=== PATIENT | female | born 1950 | race Caucasian/White ===

== ENCOUNTER 2018-09-19 11:41 | Outpatient (CLI) | payer MEDICARE, MEDICAID, SELFPAY ==
[2018-09-19 13:54] LABS: Abs Immature Grans 0.02 k/cumm (0.0-0.09); Absolute Basophil Count 0.02 k/cumm (0.0-0.2); Absolute Eosinophil Count 0.28 k/cumm (0.0-0.7); Absolute Lymphocyte Count 1.61 k/cumm (1.2-3.4); Absolute Monocyte Count 0.68 k/cumm (0.11-0.7); Absolute Neutrophil Count 5.67 k/cumm (1.2-6.7); Basophils % 0.2; Eosinophils % 3.4; HGB 9.6 g/dL (12.0-15.5); Immature Grans % 0.2; Lymphocytes % 19.4; Mean Corpuscular Hemoglobin 25.3 pg (27.0-33.0); Mean Corpuscular Volume 84.4 fL (80-95); Mean Platelet Volume 7.9 fL (8.0-11.0); Monocytes % 8.2; Neutrophils % 68.6; Platelet Count 694 x1000/uL (130-400); RBC 3.79 m/cumm (4.00-5.20); RBC Distribution Width 19.5 % (11.7-14.6); White Blood Cell Count 8.28 k/cumm (4.4-10.8)
[2018-09-19 14:05] LABS: Anisocytosis 1+; Diff Comment RBC Morph Reviewed
[2018-09-19 14:06] LABS: Hypochromasia 1+; Polychromasia Present
[2018-09-19 14:19] LABS: Iron 20 ug/dL (50-175); Total Iron Binding Capacity 472 ug/dL (250-450); Transferrin Sat 4 % (15-50)
[2018-09-19 14:30] LABS: ALT 22 U/L (12-78); AST 17 U/L (15-37); Albumin 3.7 g/dL (3.4-5.0); Alkaline Phosphatase 100 U/L (46-116); Anion Gap 8.6 mmol/L (3-11); BUN 16 mg/dL (7-18); Bilirubin, Total 0.1 mg/dL (0.2-1.0); CO2 28.4 mmol/L (21.0-32.0); CREATININE 1.15 mg/dL (0.55-1.02); Calcium 9.8 mg/dL (8.5-10.1); Chloride 100 mmol/L (98-107); Estimated GFR 46.92 (mL/min/1.73m2); Ferritin 11 ng/mL (8-388); Folate > 20.0 ng/mL (8.6-20.0); Glucose 108 mg/dL (70-100); Potassium 3.9 mmol/L (3.5-5.1); Sodium 137 mmol/L (136-145); Total Protein 7.8 g/dL (6.4-8.2); Vitamin B12 546 pg/mL (193-986)
[2018-09-22 12:24] LABS: Methylmalonic Acid 0.21 nmol/mL (<=0.40)
== END 2018-09-19 12:01 ==
PROVIDERS: PCP Neuromusculoskeletal Medicine & OMM; Visit Provider Internal Medicine
DX: D50.9 Iron deficiency anemia, unspecified (principal)
CPT/HCPCS: 36415; 80053; 80186; 82607; 82728; 82746; 83540; 83550; 85025

== ENCOUNTER 2018-09-19 14:01 | Outpatient (CLI) | payer MEDICARE, MEDICAID, SELFPAY ==
--- NOTE | 2018-09-19 14:25 | DI.RAD_ITS ---
SYMPTOM/DIAGNOSIS: LT HIP PAIN M25.552 LEFT HIP: Two views. Comparison 08/03/17 The left hip is well maintained. No bone or joint abnormality is identified. The soft tissues are unremarkable. IMPRESSION: Negative left hip examination.
--- NOTE | 2018-09-19 14:26 | DI.RAD_ITS ---
SYMPTOM/DIAGNOSIS: PAIN LEFT HIP, M25.552 SACRUM AND COCCYX: Three views. Mild degenerative changes are seen at the sacroiliac joints. The sacrum is intact and normally mineralized. No acute fracture or dislocation, lytic or sclerotic lesion seen. IMPRESSION: Mild degenerative changes of the sacroiliac joints bilaterally.
== END 2018-09-19 14:21 ==
PROVIDERS: PCP Neuromusculoskeletal Medicine & OMM; Visit Provider Neuromusculoskeletal Medicine & OMM
DX: M25.552 Pain in left hip (principal); M53.3 Sacrococcygeal disorders, not elsewhere classified
CPT/HCPCS: 36415; 80053; 80186; 93005; 99285; 71045; 72220; 73502; 82607; 82728; 82746; 83540; 83550; 83735; 84484; 85025; 85610; 85730; 93010; 99284

== ENCOUNTER 2019-06-15 13:55 | Outpatient (CLI) | payer MEDICARE, SELFPAY ==
[2019-06-15 14:27] LABS: Abs Immature Grans 0.02 k/cumm (0.0-0.09); Absolute Basophil Count 0.02 k/cumm (0.0-0.2); Absolute Eosinophil Count 0.37 k/cumm (0.0-0.7); Absolute Lymphocyte Count 1.44 k/cumm (1.2-3.4); Absolute Neutrophil Count 5.43 k/cumm (1.2-6.7); Basophils % 0.3; Eosinophils % 4.6; HCT 32.9 % (36.0-46.0); Immature Grans % 0.3; Mean Corp. HGB Concentration 30.4 g/dL (32.0-36.0); Mean Corpuscular Hemoglobin 24.6 pg (27.0-33.0); Mean Platelet Volume 7.9 fL (8.0-11.0); Monocytes % 8.8; Platelet Count 640 x1000/uL (130-400); RBC 4.06 m/cumm (4.00-5.20); RBC Distribution Width 16.8 % (11.7-14.6); White Blood Cell Count 7.98 k/cumm (4.4-10.8)
[2019-06-15 14:51] LABS: ALT 25 U/L (12-78); AST 16 U/L (15-37); Albumin 3.3 g/dL (3.4-5.0); Alkaline Phosphatase 86 U/L (46-116); Anion Gap 10.4 mmol/L (3-11); BUN 18 mg/dL (7-18); Bilirubin, Total 0.1 mg/dL (0.2-1.0); CO2 25.6 mmol/L (21.0-32.0); CREATININE 1.01 mg/dL (0.55-1.02); Chloride 102 mmol/L (98-107); Estimated GFR 54.51 (mL/min/1.73m2); Ferritin 5 ng/mL (8-388); Glucose 109 mg/dL (70-100); Sodium 138 mmol/L (136-145); Total Protein 7.5 g/dL (6.4-8.2)
== END 2019-06-15 14:15 ==
PROVIDERS: PCP Neuromusculoskeletal Medicine & OMM; Visit Provider Internal Medicine
DX: D50.9 Iron deficiency anemia, unspecified (principal)
CPT/HCPCS: 36415; 80053; 82728; 85025

== ENCOUNTER 2019-10-16 13:42 | Outpatient (CLI) | payer MEDICARE, SELFPAY ==
[2019-10-16 15:33] LABS: Abs Immature Grans 0.02 k/cumm (0.0-0.09); Absolute Basophil Count 0.03 k/cumm (0.0-0.2); Absolute Eosinophil Count 0.26 k/cumm (0.0-0.7); Absolute Lymphocyte Count 1.22 k/cumm (1.2-3.4); Absolute Monocyte Count 0.74 k/cumm (0.11-0.7); Absolute Neutrophil Count 5.45 k/cumm (1.2-6.7); Basophils % 0.4; Eosinophils % 3.4; HCT 37.6 % (36.0-46.0); HGB 11.9 g/dL (12.0-15.5); Immature Grans % 0.3; Lymphocytes % 15.8; Mean Corp. HGB Concentration 31.6 g/dL (32.0-36.0); Mean Corpuscular Hemoglobin 28.2 pg (27.0-33.0); Mean Corpuscular Volume 89.1 fL (80-95); Mean Platelet Volume 7.9 fL (8.0-11.0); Monocytes % 9.6; Neutrophils % 70.5; Platelet Count 602 x1000/uL (130-400); RBC 4.22 m/cumm (4.00-5.20); RBC Distribution Width 15.8 % (11.7-14.6); White Blood Cell Count 7.72 k/cumm (4.4-10.8)
[2019-10-16 16:10] LABS: ALT 21 U/L (14-59); AST 16 U/L (15-37); Albumin 3.7 g/dL (3.4-5.0); Alkaline Phosphatase 75 U/L (46-116); Anion Gap 10.6 mmol/L (3-11); BUN 18 mg/dL (7-18); Bilirubin, Total 0.2 mg/dL (0.2-1.0); CO2 27.4 mmol/L (21.0-32.0); CREATININE 0.97 mg/dL (0.55-1.02); Calcium 9.6 mg/dL (8.5-10.1); Chloride 103 mmol/L (98-107); Estimated GFR 56.94 (mL/min/1.73m2); Glucose 80 mg/dL (74-106); Potassium 4.1 mmol/L (3.5-5.1); Sodium 141 mmol/L (136-145); Total Protein 7.3 g/dL (6.4-8.2)
[2019-10-17 15:11] LABS: Ferritin 22 ng/mL (8-252)
== END 2019-10-16 14:02 ==
PROVIDERS: Internal Medicine; PCP Neuromusculoskeletal Medicine & OMM; Visit Provider Registered Nurse Oncology
DX: D50.9 Iron deficiency anemia, unspecified (principal); K29.50 Unspecified chronic gastritis without bleeding
CPT/HCPCS: 36415; 80053; 82728; 85025

== ENCOUNTER 2020-04-15 02:30 | Outpatient (CLI) | payer MEDICARE, SELFPAY ==
[2020-04-15 14:02] LABS: Abs Immature Grans 0.02 k/cumm (0.0-0.09); Absolute Basophil Count 0.01 k/cumm (0.0-0.2); Absolute Eosinophil Count 0.31 k/cumm (0.0-0.7); Absolute Lymphocyte Count 1.32 k/cumm (1.2-3.4); Absolute Monocyte Count 0.66 k/cumm (0.11-0.7); Absolute Neutrophil Count 5.74 k/cumm (1.2-6.7); Basophils % 0.1; Eosinophils % 3.8; HCT 28.5 % (36.0-46.0); HGB 8.6 g/dL (12.0-15.5); Immature Grans % 0.2 %; Lymphocytes % 16.4; Mean Corp. HGB Concentration 30.2 g/dL (32.0-36.0); Mean Corpuscular Hemoglobin 24.2 pg (27.0-33.0); Mean Corpuscular Volume 80.3 fL (80-95); Mean Platelet Volume 8.2 fL (8.0-11.0); Monocytes % 8.2; Neutrophils % 71.3; RBC 3.55 m/cumm (4.00-5.20); RBC Distribution Width 15.3 % (11.7-14.6); White Blood Cell Count 8.06 k/cumm (4.4-10.8)
[2020-04-15 14:32] LABS: Platelet Count 938 x1000/uL (130-400)
[2020-04-15 14:33] LABS: Anisocytosis 1+; Diff Comment RBC Morph Reviewed; Hypochromasia 1+; Polychromasia Present
[2020-04-15 14:57] LABS: ALT 20 U/L (14-59); AST 16 U/L (15-37); Albumin 3.4 g/dL (3.4-5.0); Alkaline Phosphatase 87 U/L (46-116); Anion Gap 10.3 mmol/L (3-11); BUN 15 mg/dL (7-18); Bilirubin, Total 0.2 mg/dL (0.2-1.0); CO2 26.7 mmol/L (21.0-32.0); CREATININE 1.06 mg/dL (0.55-1.02); Calcium 9.4 mg/dL (8.5-10.1); Chloride 101 mmol/L (98-107); Ferritin 4 ng/mL (8-252); Glucose 105 mg/dL (74-106); Potassium 4.3 mmol/L (3.5-5.1); Sodium 138 mmol/L (136-145); Total Protein 7.1 g/dL (6.4-8.2)
== END 2020-04-15 02:50 ==
PROVIDERS: PCP Neuromusculoskeletal Medicine & OMM; Visit Provider Internal Medicine
DX: D50.9 Iron deficiency anemia, unspecified (principal)
CPT/HCPCS: 80053; 82728; 85025

== ENCOUNTER 2020-06-17 01:57 | Outpatient (CLI) | payer MEDICARE, SELFPAY ==
[2020-06-17 13:37] LABS: Abs Immature Grans 0.03 10^3/uL (0.0-0.06); Absolute Basophil Count 0.04 10^3/uL (0.0-0.2); Absolute Eosinophil Count 0.27 10^3/uL (0.0-0.7); Absolute Lymphocyte Count 1.23 10^3/uL (1.2-3.4); Absolute Monocyte Count 0.52 10^3/uL (0.1-0.8); Absolute Neutrophil Count 5.74 10^3/uL (1.2-6.7); Basophils % 0.5; Eosinophils % 3.4; HCT 35.8 % (36.0-46.0); HGB 11.1 g/dL (11.2-15.7); Immature Grans % 0.4; Lymphocytes % 15.7; MCH 26.1 pg (27.0-33.0); MCV 84.2 fL (80-95); MPV 8.2 fL (8.0-11.0); Monocytes % 6.6; Neutrophils % 73.4; Platelet Count 566 10^3/uL (130-400); RBC 4.25 10^6/uL (3.93-5.22); RDW 23.8 % (11.7-14.6); RDW-SD 70.3 fL; WBC 7.83 10^3/uL (4.4-10.8)
[2020-06-17 14:04] LABS: ALT 18 U/L (14-59); AST 12 U/L (15-37); Albumin 3.4 g/dL (3.4-5.0); Alkaline Phosphatase 75 U/L (46-116); Anion Gap 7.6 mmol/L (3-11); BUN 19 mg/dL (7-18); Bilirubin, Total 0.2 mg/dL (0.2-1.0); CO2 25.4 mmol/L (21.0-32.0); Calcium 9.4 mg/dL (8.5-10.1); Chloride 104 mmol/L (98-107); Estimated GFR 54.97 (mL/min/1.73m2); Ferritin 102 ng/mL (8-252); Glucose 116 mg/dL (74-106); Potassium 3.7 mmol/L (3.5-5.1); Sodium 137 mmol/L (136-145); Total Protein 7.3 g/dL (6.4-8.2)
[2020-06-17 14:08] LABS: Anisocytosis 3+; Diff Comment Diff Reviewed
[2020-06-17 14:09] LABS: Poikilocytes 1+
== END 2020-06-17 02:17 ==
PROVIDERS: PCP Neuromusculoskeletal Medicine & OMM; Visit Provider Internal Medicine
DX: D50.9 Iron deficiency anemia, unspecified (principal)
CPT/HCPCS: 36415; 80053; 82728; 85025

== ENCOUNTER 2020-07-15 05:28 | Inpatient (IN) | payer MEDICARE, SELFPAY ==
[2020-07-15] VITALS (13 sets, daily range): BP systolic 110–141; BP diastolic 61–85; PULSE 81–103; RESP 15–18; TEMP 35.8–37; O2SAT 89–97
--- NOTE | 2020-07-15 05:30 | DI.CT_ITS ---
EXAM: CT ABDOMEN PELVIS CTA CLINICAL HISTORY: lower abdominal pain, ?mesenteric ischemia. TECHNIQUE: Imaging Protocol: Axial CT angiography was performed with multi-slice acquisition and m ulti-planar and/or 3D reconstructions. CONTRAST MATERIAL: Intravenous: Omnipaque 350 Contrast volume:110 mL Oral: No COMPARISON: No exams were available for comparison FINDINGS: Vascular Structures: Celiac Drift/SMA: Mild atherosclerosis at the origin of the celiac axis. No occlusion or significant stenosis. No occlusion or significant stenosis at the SMA. Renal Arteries: No occlusion or significant stenosis. There is a single renal artery perfusing each kidney. Aorta: Mild atherosclerosis. No occlusion, dissection or significant stenosis. Pelvis: Iliac Arteries: No occlusion or significant stenosis. Common Femoral Arteries: No occlusion or significant stenosis. Soft Tissues: Lung bases:Dependent atelectasis. Liver: Fatty infiltration. No measurable mass. 22 cm in length. Gallbladder and biliary tract: Status post cholecystectomy. No biliary ductal dilatation. Pancreas: Normal density, no abnormal calcifications or inflammatory process. Spleen: Normal. Kidneys: Normal size, contour and axis. 2 mm nonobstructing stone in the midpole of the left kidney. No masses seen. Adrenal glands: No masses seen. Bladder: Symmetric distention, no gross wall thickening. Bowel: Diffuse moderate dilatation of the small bowel to the level of the cecum. Question of narrowi ng at the level of the terminal ileum. Colonic diverticulosis but no evidence of acute diverticuliti s. There is a normal appendix. Peritoneal cavity: No ascites, collection or mesenteric inflammatory response. Vasculature: The superior mesenteric, splenic and portal veins are patent. Bones: Degenerative changes. Lymph nodes: Within normal limits. IMPRESSION: 1. Mild atherosclerosis but no evidence of arterial occlusion or significant stenosis. No aneurysm o r dissection. 2. Findings suspicious for distal partial small bowel obstruction with a question of narrowing at the level of the terminal ileum. Barium study may be considered for further evaluation. RADIATION DOSE DELIVERED: 2,185.99mGy.cm Total DLP DATA REPOSITORY: All CT scans at this facility are submitted to the National Radiology Data Registry (NRDR) Dose Index Registry (DIR) with the [employer] (A[employer]). RADIATION OPTIMIZATION: All CT scans at this facility use at least one of these dose optimization te chniques: automated exposure control; mA and/or kV adjustment per patient size (includes targeted exa ms where dose is matched to clinical indication); or iterative reconstruction.
--- NOTE | 2020-07-15 05:37 | W.ED.GENAD ---
Discharge Plan Disposition Patient Disposition: [facility] INPATIENT Condition: Stable Discharge Details Chief Complaint: Abd Prob Clinical Impression: SBO (small bowel obstruction) Primary Care Provider: Shayan Headley ED Provider: Martell Mohamud Home Meds and New Rx's Prescriptions: No Action levothyroxine [Synthroid] 112 MCG tablet 112 mcg PO DAILY RF: 0 fluoxetine 40 MG capsule 80 mg PO DAILY RF: 0 prochlorperazine maleate 5 MG tablet 5 mg PO Q8H PRNRF: 0 pseudoephedrine HCl [Sudogest] 30 MG tablet 30 mg PO TID RF: 0 zolpidem 5 MG tablet 5 mg PO .QHS RF: 0 risperidone 0.5 MG tablet 0.5 mg PO TID RF: 0 ginkgo biloba 60 MG capsule 60 mg PO DAILY RF: 0 cyclobenzaprine 5 MG tablet 5 mg PO TID PRNRF: 0 calcium carbonate-vitamin D3 1 EACH tablet 1 tab PO DAILY RF: 0 hydrocodone-acetaminophen 5-325 mg tablet 1 tab PO HS PRN (Reason: Pain) RF: 0 methylphenidate HCl 20 mg tablet 20 mg PO TID PRNRF: 0 Medical Decision Making 69 yo female with hx of hypothyroidism and prior cholecystecomy otherwise denies other abdominal surgeries, doesn't drink and hasn't smoker in over 40 years, comes in with 3 months or so of abdominal pain but worsened over the past 3 days. Denies fevers, has had dry heaves, no chest pain or pressure and no dyspnea. Denies any bloody bowel movements. On exam she is tender throughout on the abdominal exam though is most tender in the lower quadrants and abdomen does have some distention. Will obtain ct to eval for mesenteric ischemia, sbo, appendicitis among other pathology and monitor. She states she had IV contrast for CT 30 years ago and felt anxious and this was her allergic reaction to IV dye, no dyspnea or rashes she can recall, will pretreat with benadryl and solumedro labs unremarkable there was some delay in sending images to vrad and on my read does appear to be sbo, consulted Dr. Severino who will review images, pt remains stable vrad confirms likely developing sbo with likely lesion in terminal ileum, awaiting return call from Dr. Mere severino agreed with admission will hold on NG tube at present, pt updated and agrees with plan Differential Diagnosis Differential Diagnosis: appendicitis, sbo, mesenteric iscehmia Imaging Data Radiologic Study: Attestation: I personally reviewed and interpreted this imaging study as follows: Imaging: CT Scan Radiologist's impression: IMPRESSION: Suspected developing distal partial small bowel obstruction with possible lesion at the terminal ileum/ileocecal junction with associated mild narrowing No arterial occlusion or hemodynamically significant stenosis. No aortic aneurysm or dissection Lab Data Lab results reviewed: Yes I reviewed the patient's lab results. HPI General Mode of arrival: EMS. Date/Time Provider Initiated Documentation: 07/15/20 05:33. Limitations to Documentation: no limitations. Information obtained by: patient. History of Present Illness 69 year old F presents to the emergency department with the chief complaint of abdominal pain, described as moderate, Patient started experiencing this month(s) (3) No relieving factors improve symptom(s), No exacerbating factors reported . Patient did receive the following treatments prior to arrival, none Related Data Home Medications Medication Instructions Recorded Confirmed levothyroxine [Synthroid] 112 mcg PO DAILY tab-cap 02/15/17 07/15/20 calcium carbonate-vitamin D3 1 tab PO DAILY 05/02/17 07/15/20 cyclobenzaprine 5 mg PO TID PRN 05/02/17 07/15/20 fluoxetine 80 mg PO DAILY 05/02/17 07/15/20 ginkgo biloba 60 mg PO DAILY 05/02/17 07/15/20 prochlorperazine maleate 5 mg PO Q8H PRN 05/02/17 07/15/20 pseudoephedrine HCl [Sudogest] 30 mg PO TID 05/02/17 07/15/20 risperidone 0.5 mg PO TID 05/02/17 07/15/20 zolpidem 5 mg PO .QHS 05/02/17 07/15/20 hydrocodone-acetaminophen 1 tab PO HS PRN 07/15/20 07/15/20 methylphenidate HCl 20 mg PO TID PRN 07/15/20 07/15/20 Allergies Allergy/AdvReac Type Severity Reaction Status Date / Time Penicillins Allergy Severe Dizziness/L Unverified 07/15/20 05:36 ightheade niacin Allergy Unknown Skin Rash Unverified 07/15/20 05:36 Sulfa (Sulfonamide Allergy Unknown Nausea Unverified 07/15/20 05:36 Antibiotics) IV DYE AdvReac red and Uncoded 07/15/20 05:36 itchy General Stated Complaint: Abd Prob STEFFANY: 3 Review of Systems All systems reviewed & are unremarkable except as noted in HPI and below Constitutional Constitutional: Denies chills, Denies fever(s) and Denies weakness Cardiovascular Cardiovascular: Denies chest pain and Denies dyspnea Respiratory Respiratory: Denies cough and Denies dyspnea Musculoskeletal Musculoskeletal: Denies joint swelling Neurologic Neurologic: Denies weakness Psychiatric Psychiatric: Denies depression [facility] Medical History (Updated 07/15/20 @ 07:01 by Martell Mohamud MD) Anxiety (Chronic) Asthma (Chronic) Depression (Chronic) Knee arthropathy (Acute) Surgical History (Updated 07/15/20 @ 05:46 by Irasema Barajas) History of cholecystectomy (Chronic) Social History Smoking/Tobacco Use Status: Former Tobacco Use Alcohol Intake: former Drug use: Occasionally Substance use type: marijuana Do you feel safe at home: Yes Do you feel safe in your relationship?: Yes Exam Const General: no acute distress Orientation: alert HENMT Head: normal to inspection Ears: external ears normal General nose exam: external nose normal Mouth: moist mucous membranes Eyes General: appearance normal, both eyes and all related structures Neck Neck: normal visual inspection Resp Effort & Inspection: normal respiratory effort and able to speak in complete sentences Cardio Rate: regular rate GI Palpation: soft Skin General skin exam: no rashes or lesions noted Neuro General: patient alert and patient oriented x3 Extrem General: normal to inspection Psych Mental Status: mental status grossly normal Course Vital Signs Vital signs: Vital Signs Temperature 36.5 C 07/15/20 05:28 Pulse 103 H 07/15/20 05:28 Respiratory Rate 16 07/15/20 05:28 Blood Pressure 133/63 07/15/20 05:28 Pulse Oximetry 93 L 07/15/20 05:28 Temperature 36.5 C 07/15/20 05:28 Temperature Source Temporal Artery Scan 07/15/20 05:28 Pulse 103 H 07/15/20 05:28 Respiratory Rate 16 07/15/20 05:28 Blood Pressure 133/63 07/15/20 05:28 Blood Pressure Position Supine 07/15/20 05:28 Pulse Oximetry 93 L 07/15/20 05:28 Oxygen Delivery Method Room Air 07/15/20 05:28 Oxygen Flow Rate 0 08/31/20 05:28 Pain Level 5 07/15/20 05:28
[2020-07-15 05:43] LABS: Lactate 1.1 mmol/L (0.6-1.4)
[2020-07-15 05:47] LABS: Abs Immature Grans 0.02 10^3/uL (0.0-0.06); Absolute Basophil Count 0.01 10^3/uL (0.0-0.2); Absolute Eosinophil Count 0.02 10^3/uL (0.0-0.7); Absolute Lymphocyte Count 0.89 10^3/uL (1.2-3.4); Absolute Monocyte Count 1.07 10^3/uL (0.1-0.8); Absolute Neutrophil Count 8.11 10^3/uL (1.2-6.7); Basophils % 0.1; Eosinophils % 0.2; HCT 38.3 % (36.0-46.0); HGB 11.7 g/dL (11.2-15.7); Immature Grans % 0.2; Lymphocytes % 8.8; MCH 26.2 pg (27.0-33.0); MCHC 30.5 % (32.0-36.0); MCV 85.7 fL (80-95); MPV 8.3 fL (8.0-11.0); Monocytes % 10.6; Neutrophils % 80.1; Nucleated RBC 0 %; Platelet Count 625 10^3/uL (130-400); RBC 4.47 10^6/uL (3.93-5.22); RDW 20.4 % (11.7-14.6); RDW-SD 63.5 fL; WBC 10.12 10^3/uL (4.4-10.8)
[2020-07-15] MEDS: methylPREDNISolone SUCC 125 MG VIAL IVP (05:51)
[2020-07-15] MEDS: diphenhydrAMINE 50 MG/ML VIAL 25 MG IVP (05:53)
[2020-07-15 05:58] LABS: Bilirubin, Direct 0.07 mg/dL (0.00-0.20); Bilirubin, Total 0.3 mg/dL (0.2-1.0); INR 0.9 (0.9-1.1); Lipase 43 U/L (73-393); Magnesium 1.8 mg/dL (1.8-2.4); PTT Activated 22.6 sec (21.0-31.4); Prothrombin Time 9.4 sec (9.3-11.0)
[2020-07-15 06:00] LABS: ALT 40 U/L (14-59); AST 34 U/L (15-37); Albumin 3.2 g/dL (3.4-5.0); Alkaline Phosphatase 94 U/L (46-116); Anion Gap 12.3 mmol/L (3-11); BUN 15 mg/dL (7-18); Bilirubin, Total 0.3 mg/dL (0.2-1.0); CO2 23.7 mmol/L (21.0-32.0); CREATININE 1.04 mg/dL (0.55-1.02); Calcium 9.4 mg/dL (8.5-10.1); Chloride 101 mmol/L (98-107); Estimated GFR 52.54 (mL/min/1.73m2); Glucose 159 mg/dL (74-106); Potassium 3.3 mmol/L (3.5-5.1); Sodium 137 mmol/L (136-145); Total Protein 7.3 g/dL (6.4-8.2)
[2020-07-15 06:17] LABS: Anisocytosis 2+
[2020-07-15] MEDS: Normal Saline 1,000 ML 1000 ML IV (06:22)
[2020-07-15] MEDS: Omnipaque 350 MG/ML 100 ML BTL IJ (06:26)
[2020-07-15] MEDS: Normal Saline - Diluent 50 ML VIAL IV (06:28)
[2020-07-15] MEDS: Normal Saline Flush 10 ML SYR IVP ×3 (06:28→21:49)
--- NOTE | 2020-07-15 06:30 | NUR.NOTE ---
Nursing Note: Patient placed on 2L of oxygen via nasal for sats 88%. Responds well with sats improving to 97%
--- NOTE | 2020-07-15 06:50 | DI.VRAD_ITS ---
Addendum created by Dominik Priest MD on 07/15/2020 6:56:36 AM EDT: THIS REPORT CONTAINS FINDINGS THAT MAY BE CRITICAL TO PATIENT CARE. The findings were verbally communicated via telephone conference with Martell Mohamud at 6:56 AM EDT on 07/15/2020. The findings were acknowledged and understood. Initial report created on 07/15/2020 6:50:12 AM EDT: PROCEDURE INFORMATION: Exam: CT Angiography Abdomen and Pelvis With Contrast Exam date and time: 07/15/2020 6:11 AM Age: 69 years old Clinical indication: Localized; Prior surgery; Surgery date: 6+ months; Surgery type: Cholecystectomy; Patient HX: Lower abdominal pain that comes and goes but more severe. Feels like a tightness TECHNIQUE: Imaging protocol: Computed tomographic angiography of the abdomen and pelvis with intravenous contrast material. 3D rendering (Not supervised by radiologist): MIP and/or 3D reconstructed images were created by the technologist. Radiation optimization: All CT scans at this facility use at least one of these dose optimization techniques: automated exposure control; mA and/or kV adjustment per patient size (includes targeted exams where dose is matched to clinical indication); or iterative reconstruction. Contrast material: OMNIPAQUE 350; Contrast volume: 100 ml; Contrast route: INTRAVENOUS (IV); COMPARISON: CR XR hip LT complete AP pelvis 09/19/2018 2:04 PM FINDINGS: Minimal basilar subsegmental atelectasis versus scarring Aorta: No aortic aneurysm. No aortic dissection. Celiac trunk and mesenteric arteries: No occlusion or significant stenosis. Renal arteries: No occlusion or significant stenosis. Right iliac arteries: No occlusion or significant stenosis. Left iliac arteries: No occlusion or significant stenosis. Liver: No mass. Hepatomegaly and diffuse fatty infiltration Gallbladder and bile ducts: Prior cholecystectomy. No ductal dilation. Pancreas: Unremarkable. No mass. No ductal dilation. Spleen: Unremarkable. No splenomegaly. Adrenals: Unremarkable. No mass. Kidneys and ureters: Unremarkable. No solid mass. No hydronephrosis. Stomach and bowel: Mildly dilated fluid-filled small bowel loops extending to the level of the terminal ileum. Question area of narrowing/abnormal soft tissue at the level of the terminal ileum Appendix: No evidence of appendicitis. Intraperitoneal space: Unremarkable. No free air. No significant fluid collection. Lymph nodes: Unremarkable. No enlarged lymph nodes. Bladder: Unremarkable. No mass. Reproductive: Unremarkable as visualized. Bones/joints: No acute fracture. No dislocation. Soft tissues: Unremarkable. IMPRESSION: Suspected developing distal partial small bowel obstruction with possible lesion at the terminal ileum/ileocecal junction with associated mild narrowing No arterial occlusion or hemodynamically significant stenosis. No aortic aneurysm or dissection Dictated and Authenticated by: Dominik Priest MD. Ordering:SANDRINE Moura MD
[2020-07-15 07:33] LABS: Bilirubin Negative (Negative); Blood Negative (Negative); Clarity Clear (Clear); Glucose Negative (Negative); Ketones Negative (Negative); Leukocyte Esterase Negative (Negative); Nitrite Negative (Negative); Urobilinogen 0.2 EU/dL (Up TO 0.2)
[2020-07-15] MEDS: Lactated Ringers 1,000 ML 125 ML IV ×2 (08:30→16:33)
--- NOTE | 2020-07-15 09:00 | HPE_ITS ---
Date of service: 07/15/20 Time of Service: 09:00 Assessment and Plan Assessment and plan (1) SBO (small bowel obstruction): Status: Acute (2) Cecum mass: Status: Acute Assessment and plan: The CT findings are suspicious for a mass in the cecum causing partial obstruction. The patient does not want a colonoscopy to confirm this. We will proceed with bowel prep and then small bowel follow through in the am. We briefly discussed possible need for right hemicolectomy depending on the findings. She agrees with the plan. History of Present Illness Narrative: This patient presented to the emergency department this morning with worsening bilateral lower abdominal pain. She had dry heaves. She notes no change in her bowel habits. She has had dark stools off and on. She notes abdominal complaints for the past few years. She has an upper endoscopy scheduled at [facility] in August. She has never had a colonoscopy for personal reasons. CT scan of the abdomen pelvis showed a possible partially obstructing lesion in the cecum with mild dilation of the small bowel. Review of Systems Constitutional Constitutional: Denies fatigue and Denies headache(s) Eyes Eyes: Denies change in vision ENT Ears, Nose, Mouth, and Throat: Denies headache(s) and Denies neck mass Cardiovascular Cardiovascular: Denies chest pain, Denies edema, Denies palpitations and Denies dyspnea Respiratory Respiratory: Denies cough, Denies dyspnea and Denies wheezing Gastrointestinal Gastrointestinal: Denies change in bowel habits Genitourinary Genitourinary: Denies abnormal vaginal bleeding and Denies dysuria Musculoskeletal Musculoskeletal: Denies joint swelling Integumentary/Breasts Skin/Breast: Denies new lesions and Denies rash Neurologic Neurologic: Denies confusion, Denies headache(s) and Denies localized weakness Psychiatric Psychiatric: Reports system reviewed and no additional complaints, except as documented and Denies confusion Endocrine Endocrine: Denies fatigue and Denies palpitations Hematologic/Lymphatic Hematologic/Lymphatic: Denies easy bleeding and Denies lymphadenopathy Allergic/Immunologic Allergic/Immunologic: Denies wheezing [facility] Medical History (Updated 07/15/20 @ 11:15 by Frances Severino MD) Anxiety (Chronic) Asthma (Chronic) Depression (Chronic) GERD (gastroesophageal reflux disease) (Chronic) Hyperlipidemia (Inactive) Hypothyroidism (Inactive) Knee arthropathy (Acute) PTSD (post-traumatic stress disorder) (Inactive) Thrombocythemia (Acute) Surgical History (Updated 07/15/20 @ 09:01 by Frances Severino MD) History of cholecystectomy (Chronic) S/P right rotator cuff repair (Acute) Social History Smoking/Tobacco Use Status: Former Tobacco Use Alcohol Intake: former Drug use: Occasionally Substance use type: marijuana Do you feel safe at home: Yes Do you feel safe in your relationship?: Yes Meds Home Medications and Allergies Home Medications Medication Instructions Recorded Confirmed Type levothyroxine [Synthroid] 112 mcg PO DAILY tab-cap 02/15/17 07/15/20 History calcium carbonate-vitamin D3 1 tab PO DAILY 05/02/17 07/15/20 History cyclobenzaprine 5 mg PO TID PRN 05/02/17 07/15/20 History fluoxetine 80 mg PO DAILY 05/02/17 07/15/20 History ginkgo biloba 60 mg PO DAILY 05/02/17 07/15/20 History prochlorperazine maleate 5 mg PO Q8H PRN 05/02/17 07/15/20 History pseudoephedrine HCl [Sudogest] 30 mg PO TID 05/02/17 07/15/20 History risperidone 0.5 mg PO TID 05/02/17 07/15/20 History zolpidem 5 mg PO .QHS 05/02/17 07/15/20 History hydrocodone-acetaminophen 1 tab PO HS PRN 07/15/20 07/15/20 History methylphenidate HCl 20 mg PO TID PRN 07/15/20 07/15/20 History Allergies Allergy/AdvReac Type Severity Reaction Status Date / Time Penicillins Allergy Severe Dizziness/L Unverified 07/15/20 05:36 ightheade niacin Allergy Unknown Skin Rash Unverified 07/15/20 05:36 Sulfa (Sulfonamide Allergy Unknown Nausea Unverified 07/15/20 05:36 Antibiotics) IV DYE AdvReac red and Uncoded 07/15/20 05:36 itchy Exam Const Nutritional Appearance: well nourished Orientation: oriented x3 HENMT Head: normal to inspection Eyes Sclera: sclerae normal Pupils: PERRL Neck Neck: no lymphadenopathy Thyroid: thyroid normal Carotids: no bruits Lymphatic: no lymphadenopathy noted Resp Effort & Inspection: normal respiratory effort Auscultation: clear to auscultation bilaterally and no wheezes Cardio Rate: regular rate Rhythm: regular rhythm GI Inspection: non-distended Palpation: soft, no hepatosplenomegaly, no hernias and tender in the RLQ Skin General skin exam: no rashes or lesions noted Neuro General: patient alert Cognition: normal cognition Extrem General: normal to inspection Psych Affect: normal affect Attitude: cooperative Results Labs Result diagrams: 07/15/20 05:35 07/15/20 05:35 Labs: Laboratory Results - last 24 hr 07/15/20 07/15/20 07/15/20 05:35 05:35 05:35 WBC 10.12 RBC 4.47 Hgb 11.7 Hct 38.3 MCV 85.7 MCH 26.2 L MCHC 30.5 L RDW 20.4 H Plt Count 625 H MPV 8.3 Immature Gran % 0.2 Neutrophils % 80.1 Lymphocytes % 8.8 Monocytes % 10.6 Eosinophils % 0.2 Basophils % 0.1 Nucleated RBC % 0 Absolute Neutrophils 8.11 H Absolute Lymphocytes 0.89 L Absolute Monocytes 1.07 H Absolute Eosinophils 0.02 Absolute Basophils 0.01 RBC Morphology See below Anisocytosis 2+ PT INR APTT VBG Lactate Sodium 137 Potassium 3.3 L Chloride 101 Carbon Dioxide 23.7 Anion Gap 12.3 H BUN 15 Creatinine 1.04 H Estimated GFR/1.73 m2 52.54 Glucose 159 H Calcium 9.4 Magnesium 1.8 Total Bilirubin 0.3 0.3 Conjugated Bilirubin 0.07 AST 34 ALT 40 Alkaline Phosphatase 94 Total Protein 7.3 Albumin 3.2 L Lipase 43 Urine Color Urine Clarity Urine pH Ur Specific [place] Urine Protein Urine Ketones Urine Blood Urine Nitrite Urine Bilirubin Urine Urobilinogen Ur Leukocyte Esterase Urine Glucose 07/15/20 07/15/20 07/15/20 05:35 05:35 07:28 WBC RBC Hgb Hct MCV MCH MCHC RDW Plt Count MPV Immature Gran % Neutrophils % Lymphocytes % Monocytes % Eosinophils % Basophils % Nucleated RBC % Absolute Neutrophils Absolute Lymphocytes Absolute Monocytes Absolute Eosinophils Absolute Basophils RBC Morphology Anisocytosis PT 9.4 INR 0.9 APTT 22.6 VBG Lactate 1.1 Sodium Potassium Chloride Carbon Dioxide Anion Gap BUN Creatinine Estimated GFR/1.73 m2 Glucose Calcium Magnesium Total Bilirubin Conjugated Bilirubin AST ALT Alkaline Phosphatase Total Protein Albumin Lipase Urine Color Yellow Urine Clarity Clear Urine pH 7.0 Ur Specific [place]ord 1.010 Urine Protein Negative Urine Ketones Negative Urine Blood Negative Urine Nitrite Negative Urine Bilirubin Negative Urine Urobilinogen 0.2 Ur Leukocyte Esterase Negative Urine Glucose Negative Last Vital Signs Temp 96.4 F L 07/15/20 08:39 Pulse 95 H 07/15/20 08:39 Resp 18 07/15/20 08:39 BP 141/85 H 07/15/20 08:39 Pulse Ox 96 07/15/20 08:39 COVID-19 Screening Have you,or household,traveled outside [facility] in last 14 days?: No Had IN PERSON contact w/suspected or confirmed C-19 person: No
[2020-07-15] MEDS: Levothyroxine 112 MCG TAB PO (09:27)
[2020-07-15] MEDS: FLUoxetine 20 MG CAP 80 MG PO (11:53)
[2020-07-15] MEDS: Polyethylene Glycol 3350 238 GM BTL PO (12:54)
[2020-07-15] MEDS: Acetaminophen 325 MG TAB 650 MG PO (16:29)
[2020-07-15] MEDS: Cyclobenzaprine 10 MG TAB 5 MG PO ×2 (16:29→22:53)
[2020-07-15] MEDS: risperiDONE 0.5 MG TAB PO (19:29)
[2020-07-15 21:32] LABS: COVID-19 RT-PCR UVMMC Result Negative (Negative)
[2020-07-15] MEDS: Ondansetron 4 MG/2 ML VIAL IVP ×2 (21:49→22:52)
[2020-07-15] MEDS: Zolpidem 5 MG TAB PO (21:49)
[2020-07-16] VITALS (26 sets, daily range): BP systolic 112–176; BP diastolic 49–111; PULSE 76–111; RESP 8–20; TEMP 36.1–36.6; O2SAT 86–99
--- NOTE | 2020-07-16 | DI.RAD_ITS ---
EXAM: 2D digital imaging was performed. CLINICAL HISTORY: Possible cecal mass. COMPARISON: No exams were available for comparison TECHNIQUE: Supine views of the abdomen performed. FINDINGS: Moderately dilated loops of small bowel are present suggesting the obstruction. The colon is of norm al caliber. There is a moderate amount of stool seen in the ascending colon. Surgical clips are see n in the right upper quadrant of the abdomen which may reflect prior cholecystectomy. Contrast is se en within the urinary bladder from the patient's recent CT scan. Degenerative changes are seen in th e hips and lumbar spine. IMPRESSION: 1. Findings suspicious for small bowel obstruction. 2. Findings were discussed with Dr. Severino on the date of the examination. DATA REPOSITORY: RADIATION DOSE DELIVERED:
[2020-07-16] MEDS: Lactated Ringers 1,000 ML 125 ML IV ×3 (00:18→17:00)
[2020-07-16] MEDS: Ondansetron 4 MG/2 ML VIAL IVP (06:06)
[2020-07-16] MEDS: Levothyroxine 112 MCG TAB PO (06:07)
--- NOTE | 2020-07-16 06:46 | NUR.NOTE ---
Patient did not complete her miralax stating she was full and it full and its causing her to feel nausea.
[2020-07-16 07:06] LABS: Abs Immature Grans 0.03 10^3/uL (0.0-0.06); HCT 38.4 % (36.0-46.0); HGB 11.7 g/dL (11.2-15.7); MCH 26.2 pg (27.0-33.0); MCHC 30.5 % (32.0-36.0); MCV 86.1 fL (80-95); MPV 8.6 fL (8.0-11.0); Nucleated RBC 0 %; RBC 4.46 10^6/uL (3.93-5.22); RDW 20.6 % (11.7-14.6); RDW-SD 64.3 fL
[2020-07-16 07:11] LABS: Anion Gap 8.3 mmol/L (3-11); BUN 19 mg/dL (7-18); CO2 28.7 mmol/L (21.0-32.0); CREATININE 0.95 mg/dL (0.55-1.02); Calcium 9.2 mg/dL (8.5-10.1); Chloride 107 mmol/L (98-107); Estimated GFR 58.33 (mL/min/1.73m2); Glucose 163 mg/dL (74-106); Potassium 3.4 mmol/L (3.5-5.1); Sodium 144 mmol/L (136-145)
[2020-07-16 07:13] LABS: WBC 6.09 10^3/uL (4.4-10.8)
--- NOTE | 2020-07-16 07:22 | NUR.NOTE ---
Nursing Note: Educated patient on taking the miralax and why it's important for her to drink it when I gave it to her on 07/15 at 1300. Encouraged her throughout the day to drink the miralax.
--- NOTE | 2020-07-16 07:49 | INITIAL_ITS ---
- If Service Date Differs Date of service: 07/16/20 Time of Service: 07:49 Care Management Initial Assess REASON FOR HOSPITALIZATION:: SBO PAST MEDICAL HISTORY/PAST SURGICAL HISTORY:: Medical History (Updated 07/15/20 @ 11:15 by Frances Severino MD). Anxiety (Chronic). Asthma (Chronic). Depression (Chronic). GERD (gastroesophageal reflux disease) (Chronic). Hyperlipidemia (Inactive). Hypothyroidism (Inactive). Knee arthropathy (Acute). PTSD (post-traumatic stress disorder) (Inactive). Thrombocythemia (Acute). Surgical History (Updated 07/15/20 @ 09:01 by Frances Severino MD). History of cholecystectomy (Chronic). S/P right rotator cuff repair (Acute) PREVIOUS FUNCTIONAL STATUS/SOCIAL/FAMILY SUPPORTS:: Maryjo lives in [place], [place] with her Martell. CURRENT FUNCTIONAL STATUS:: Maryjo was in the operating room for much of the day and CM was unable to meet with her. ADVANCE DIRECTIVES:: None on file CODE STATUS:: Full Code INSURANCE COVERAGE / FINANCIAL ISSUES:: Medicare PRIMARY CARE PHYSICIAN:: Shayan Headley POTENTIAL DISCHARGE NEEDS:: Follow up with PCP and discharge plan of care PATIENT/FAMILY EDUCATION NEEDS:: Discharge plan, limitations, follow up plan, . Ask Me Three TRANSPORTATION:: via private vehicle with family PLAN:: Maryjo will likely return home with new services. She will follow up with her surgeon and PCP and discharge plan of care. CM will continue to support patient, family and discharge concerns.
[2020-07-16 07:54] LABS: Absolute Lymphocyte Count 0.43 10^3/uL (1.2-3.4); Absolute Monocyte Count 0.91 10^3/uL (0.1-0.8); Absolute Neutrophil Count 4.75 10^3/uL (1.2-6.7); Bands % 38
[2020-07-16 07:57] LABS: Anisocytosis 2+; Diff Comment Manual Differential; Macrocytosis 1+; Microcytosis 1+; Platelet Count 570 10^3/uL (130-400); Polychromasia Present
[2020-07-16] MEDS: Prochlorperazine 10 MG/2 ML VIAL IVP (10:22)
[2020-07-16] MEDS: Normal Saline Flush 10 ML SYR IVP ×2 (10:22→19:12)
--- NOTE | 2020-07-16 10:24 | W.PM.PROGNOT ---
Date of Service Date of service: 07/16/20 Time of Service: 10:24 Assessment and Plan Assessment and plan (1) SBO (small bowel obstruction): Status: Acute Assessment and plan: Plain films today show a few loops of dilated small bowel. Patient does not think she can tolerate drinking any barium. We agreed to proceed with diagnostic laparoscopy, possible laparotomy. She may need lysis of adhesions, small bowel resection or right hemicolectomy. Hopefully an anastomosis can be done but an ostomy is a small possibility. The risks of infection, bleeding, hernia, injury to other organs, leak with need for further surgery and heart/lung issues discussed. She agrees to proceed. Subjective Subjective Interval history since last seen: She is not feeling well today Was only able to tolerate 1.5 glasses of the prep and stopped due to dry heaving. Has not passed flatus or had a BM since admission Continues to have lower abdominal pain. Exam Narrative Exam Narrative: Does not appear well Abdomen soft, tender RLQ Objective Objective Clinical Data: Abnormal lab results 07/16/20 07/16/20 Range/Units 06:45 06:45 MCH 26.2 L (27.0-33.0) pg MCHC 30.5 L (32.0-36.0) % RDW 20.6 H (11.7-14.6) % Plt Count 570 H (130-400) 10^3/uL Absolute Lymphocytes 0.43 L (1.2-3.4) 10^3/uL Absolute Monocytes 0.91 H (0.1-0.8) 10^3/uL Potassium 3.4 L (3.5-5.1) mmol/L BUN 19 H (7-18) mg/dL Glucose 163 H (74-106) mg/dL Vital Signs Temperature 97.3 F L 07/16/20 07:40 Temperature Source Tympanic 07/16/20 07:40 Pulse 77 07/16/20 07:40 Pulse Rhythm Regular 07/16/20 03:33 Pulse Strength Normal 07/15/20 08:23 Respiratory Rate 20 07/16/20 07:40 Respiratory Effort Non-Labored 07/16/20 03:33 Respiratory Depth Normal 07/16/20 03:33 Respiratory Pattern Normal 07/16/20 03:33 Blood Pressure 131/85 07/16/20 07:40 Blood Pressure Mean 95 07/15/20 08:23 Blood Pressure Position Supine 07/15/20 05:28 Pulse Oximetry 99 07/16/20 07:40 Oxygen Delivery Method Nasal Cannula 07/16/20 07:40 Oxygen Flow Rate 1 07/16/20 07:40 Pain Level 8 07/16/20 07:40 Comment 07/16/20 03:36 Intake & Output 07/15/20 07/15/20 07/16/20 11:59 23:59 11:59 Intake Total 999 / 1999 999 / 1999 2049. Output Total 400 / 1350 950 / 1350 200 / 200 Balance 600 / 650 50 / 650 1849. / Weight 207 lb 15.992 oz Intake: IV 999 / 1999. / Output: Urine 400 / 1350 950 / 1350 200 / 200 Other: Urine Color Yellow Yellow Yellow Urine Appearance Clear Clear Clear Urine Odor None None Comment minimal urine unable to proper record amount due to the tiolet paper inside commode. State she is unable to voidas before bladder scan was done at this time for 61Mls patient was bladder scanned due to fact she state she is not voiding as she used to Voiding Methods Toilet Toilet Toilet Laboratory Results WBC 6.09 10^3/uL (4.4-10.8) D 07/16/20 06:45 RBC 4.46 10^6/uL (3.93-5.22) 07/16/20 06:45 Hgb 11.7 g/dL (11.2-15.7) 07/16/20 06:45 Hct 38.4 % (36.0-46.0) 07/16/20 06:45 MCV 86.1 fL (80-95) 07/16/20 06:45 MCH 26.2 pg (27.0-33.0) L 07/16/20 06:45 MCHC 30.5 % (32.0-36.0) L 07/16/20 06:45 RDW 20.6 % (11.7-14.6) H 07/16/20 06:45 Plt Count 570 10^3/uL (130-400) H 07/16/20 06:45 MPV 8.6 fL (8.0-11.0) 07/16/20 06:45 Immature Gran % 0.0 07/16/20 06:45 Neutrophils % 40.0 07/16/20 06:45 Band Neutrophils % 38 07/16/20 06:45 Lymphocytes % 7.0 07/16/20 06:45 Monocytes % 15.0 07/16/20 06:45 Eosinophils % 0.0 07/16/20 06:45 Basophils % 0.0 07/16/20 06:45 Nucleated RBC % 0 % 07/16/20 06:45 Absolute Neutrophils 4.75 10^3/uL (1.2-6.7) 07/16/20 06:45 Absolute Lymphocytes 0.43 10^3/uL (1.2-3.4) L 07/16/20 06:45 Absolute Monocytes 0.91 10^3/uL (0.1-0.8) H 07/16/20 06:45 Absolute Eosinophils 0.00 10^3/uL (0.0-0.7) 07/16/20 06:45 Absolute Basophils 0.00 10^3/uL (0.0-0.2) 07/16/20 06:45 RBC Morphology See below 07/16/20 06:45 Polychromasia Present 07/16/20 06:45 Anisocytosis 2+ 07/16/20 06:45 Microcytosis 1+ 07/16/20 06:45 Macrocytosis 1+ 07/16/20 06:45 PT 9.4 sec (9.3-11.0) 07/15/20 05:35 INR 0.9 (0.9-1.1) 07/15/20 05:35 APTT 22.6 sec (21.0-31.4) 07/15/20 05:35 VBG Lactate 1.1 mmol/L (0.6-1.4) 07/15/20 05:35 Sodium 144 mmol/L (136-145) 07/16/20 06:45 Potassium 3.4 mmol/L (3.5-5.1) L 07/16/20 06:45 Chloride 107 mmol/L (98-107) 07/16/20 06:45 Carbon Dioxide 28.7 mmol/L (21.0-32.0) 07/16/20 06:45 Anion Gap 8.3 mmol/L (3-11) 07/16/20 06:45 BUN 19 mg/dL (7-18) H 07/16/20 06:45 Creatinine 0.95 mg/dL (0.55-1.02) 07/16/20 06:45 Estimated GFR/1.73 m2 58.33 (mL/min/1.73m2) 07/16/20 06:45 Glucose 163 mg/dL (74-106) H 07/16/20 06:45 Calcium 9.2 mg/dL (8.5-10.1) 07/16/20 06:45 Magnesium 1.8 mg/dL (1.8-2.4) 07/15/20 05:35 Total Bilirubin 0.3 mg/dL (0.2-1.0) 07/15/20 05:35 Total Bilirubin 0.3 mg/dL (0.2-1.0) 07/15/20 05:35 Conjugated Bilirubin 0.07 mg/dL (0.00-0.20) 07/15/20 05:35 AST 34 U/L (15-37) 07/15/20 05:35 ALT 40 U/L (14-59) 07/15/20 05:35 Alkaline Phosphatase 94 U/L (46-116) 07/15/20 05:35 Total Protein 7.3 g/dL (6.4-8.2) 07/15/20 05:35 Albumin 3.2 g/dL (3.4-5.0) L 07/15/20 05:35 Lipase 43 U/L (73-393) 07/15/20 05:35 Urine Color Yellow (Yellow) 07/15/20 07:28 Urine Clarity Clear (Clear) 07/15/20 07:28 Urine pH 7.0 (5-8) 07/15/20 07:28 Ur Specific [place] 1.010 (1.005-1.025) 07/15/20 07:28 Urine Protein Negative mg/dL (Negative) 07/15/20 07:28 Urine Ketones Negative mg/dL (Negative) 07/15/20 07:28 Urine Blood Negative (Negative) 07/15/20 07:28 Urine Nitrite Negative (Negative) 07/15/20 07:28 Urine Bilirubin Negative (Negative) 07/15/20 07:28 Urine Urobilinogen 0.2 EU/dL (Up TO 0.2) 07/15/20 07:28 Ur Leukocyte Esterase Negative (Negative) 07/15/20 07:28 Urine Glucose Negative mg/dL (Negative) 07/15/20 07:28 COVID-19 PCR Negative (Negative) 07/15/20 08:15 Nasopharyn COVID-19 PCR Not Applicable 07/15/20 08:15 Ref Test Perform Site [facility] lab 07/15/20 08:15
--- NOTE | 2020-07-16 11:00 | RT.EKG_ITS ---
APPROVED REPORT Exam: Resting ECG Patient Location: I HR:79 bpm ECG Measurements Heart Rate 79 AXIS OR 148 P 40 QRSd 84 QRS 18 QT 403 T 66 QTc 463 Conclusion Sinus rhythm...normal P axis, V-rate 60- 99 Nonspecific T abnormalities, anterior leads...T <-0.10mV, V2-V4
[2020-07-16] MEDS: metroNIDAZOLE 500 MG/100 ML BAG 100 MG IVPB ×2 (11:35→20:19)
[2020-07-16] MEDS: ceFAZolin 2 GM/50 ML BAG IVPB (12:24)
--- NOTE | 2020-07-16 13:49 | BOWEL_PTH ---
PATIENT: Maryjo Whiteside LOC: U#:[id number] AGE/SX: 69/F ROOM: RE07/15/[address]: Frances Severino MD : [id number] BED: A DIS: 07/19/2020 SPEC #: [id number] RECD: 07/16/20 15:30 STATUS: ALICIA REQ #: [id number] ZAK: 07/16/20 13:[address]: Frances Severino DEPT: Surgical Specimen RECD BY: Nena Ernst ENTERED: 07/16/20 15:31 SP TYPE: Bowel OTHR DR: Shayan Headley Tissues: 1 - BIOPSY BOWEL Procedures: IMMUNOPEROXIDASE STAIN GROSS AND MICRO LEVEL 6 Comments: [id number]
--- NOTE | 2020-07-16 14:42 | W.PM.OP ---
Date of service: 07/16/20 Time of Service: 14:42 Operative Note Operative Note DATE OF PROCEDURE: 07/16/20 PRE-OP DIAGNOSIS: SBO Cecal Mass POST-OP DIAGNOSIS: same PROCEDURE: Diagnostic laparoscopy, right hemicolectomy SURGEON: Frances Severino JOY OPERATOR HELPER: Halie Jeff ANESTHESIA: GETA and local Patient was transported to: PACU Indications: This 69-year-old patient presented with crampy bilateral lower abdominal pain and dry heaves. She had a CT scan of the abdomen pelvis that showed a diffusely dilated small bowel with suggestions of a cecal mass. We attempted small bowel follow-through but the patient was unable to tolerate p.o. Procedure Description: The patient was taken to the operating room and after induction of general anesthetic had a Morton catheter inserted and an NG tube placed. The NG tube initially put out 1300 cc of yellowish thick fluid and over the course of the procedure put out a total of 2500 cc. Her abdomen was prepped and draped sterilely. A 5 mm incision was made to the left of the umbilicus after injecting local anesthetic. A 5 mm camera was used to access the abdomen. The small bowel was noted to be dilated. I placed 2 additional 5 mm ports after injecting local anesthetic. Palpation of the right colon did reveal a firm mass just distal to the ileocecal region. There was some adherent omentum here. I converted to an open procedure due to the difficulty visualizing related to the distended bowel. The CO2 was released. A transverse incision was made in the right upper quadrant after injecting local anesthetic. Subcutaneous tissue was divided with cautery. The rectus sheath and external/internal oblique muscles were divided. The peritoneum was entered carefully and the incision extended with cautery. Palpation in the abdomen revealed an ascending colon mass as visualized on laparoscopy. The cecum was quite floppy and was able to be mobilized up through the incision. I did place a wound protector. Omental attachments to the colon were taken down with the LigaSure. The lateral peritoneal attachments were taken down to further mobilized the right colon up to the hepatic flexure. The linear stapler was used to divide the distal ileum and the ascending colon distal to the obstructing mass. The mesentery between the 2 points was taken down mostly with the LigaSure but the ileocolic vessel was clamped twice proximally, once distally and divided. The vascular pedicle was then tied with a 0 Vicryl tie and also with a 0 Vicryl suture ligature. There is good hemostasis. The small bowel was reapproximated to the proximal ascending colon in a [id number] fashion. There was a lot of stool in the ascending colon that I milked distally and placed a bowel clamp. The staple lines were opened at the corners on each limb of bowel and the linear stapler fired down to create a [id number] anastomosis. The enterotomies were closed with the the TX 60 stapler. I did reinforce the staple line of the outside aspect of the colon with some 3-0 silk sutures. I also placed a 3-0 silk stitch at the corner of the anastomosis. We changed gloves at this point. The bowel was returned back into the abdomen. I palpated the NG tube within the stomach. The wound protector had been removed. The posterior rectus sheath/peritoneum was closed with a running 0 Vicryl stitch. The subcutaneous tissue was irrigated. The anterior rectus sheath and external oblique fascia were closed with a running #1 PDS stitch. 20 cc of Exparel were injected at 1 cm increments using 1 cc at each location. The skin at all incisions was closed with roque. She tolerated procedure well and was stable to recovery.
[2020-07-16] MEDS: Albuterol/Ipratropium 3 ML UPD VIAL (17:42)
[2020-07-16] MEDS: ceFAZolin 1 GM/50 ML BAG IVPB (19:09)
[2020-07-16] MEDS: ACETAMINOPHEN 1,000 MG/100 ML BTL 400 MG IVPB (19:10)
[2020-07-16] MEDS: Normal Saline 500 ML IV (19:10)
[2020-07-16] MEDS: Ketorolac 15 MG/ML VIAL IVP (19:11)
--- NOTE | 2020-07-16 19:59 | W.PM.PROGNOT ---
Date of Service Date of service: 07/16/20 Time of Service: 18:30 Assessment and Plan Assessment and plan (1) Cecum mass: Status: Acute Assessment and plan: 69 year old POD#0 s/p lap. Rt. Hemicolectomy. A\P 1. Low sats- continue duonebs q6 hr prn ISP every hour 2. Pain control- Toradol ordered as well as IV Tylenol to try and get pain controlled without making patient too somnolent 3. NG tube- continue to LIWS. Ordered Chlorceptic spray to help with discomfort 4. Diet- continue NPO except for ice chips Subjective Subjective Interval history since last seen: Called to see patient who is postop from a lap, hand assisted right hemicolectomy. She is sating in the high 80's. it drops when she falls asleep. Patient is still very somnolent from surgery. She is not taking deep breath due to pain. She also has PMHx of asthma. Patient told nursing staff that she has an albuterol inhalor that she uses at home. Duoneb order prior to me seeing the patient. Patient placed on non-rebreather as well by respiratory Exam Const General: cooperative Orientation: alert and other (fals asleep easily) Resp Effort & Inspection: normal respiratory effort Auscultation: clear to auscultation bilaterally GI Inspection: other (Ng tube in place. Minimal output) Palpation: soft and tender (appropriate around the incision) Auscultation: hypoactive bowel sounds Objective Objective Clinical Data: Abnormal lab results 07/16/20 07/16/20 Range/Units 06:45 06:45 MCH 26.2 L (27.0-33.0) pg MCHC 30.5 L (32.0-36.0) % RDW 20.6 H (11.7-14.6) % Plt Count 570 H (130-400) 10^3/uL Absolute Lymphocytes 0.43 L (1.2-3.4) 10^3/uL Absolute Monocytes 0.91 H (0.1-0.8) 10^3/uL Potassium 3.4 L (3.5-5.1) mmol/L BUN 19 H (7-18) mg/dL Glucose 163 H (74-106) mg/dL Vital Signs Temperature 97.5 F L 07/16/20 18:06 Temperature Source Temporal Artery Scan 07/16/20 18:06 Pulse 109 H 07/16/20 18:12 Pulse Rhythm Regular 07/16/20 03:33 Pulse Strength Normal 07/15/20 08:23 Respiratory Rate 18 07/16/20 18:12 Respiratory Effort Non-Labored 07/16/20 03:33 Respiratory Depth Normal 07/16/20 03:33 Respiratory Pattern Normal 07/16/20 03:33 Blood Pressure 122/82 07/16/20 18:06 Blood Pressure Mean 95 07/15/20 08:23 Blood Pressure Position Supine 07/15/20 05:28 Pulse Oximetry 97 07/16/20 19:55 Respiratory End-tidal CO2 22 07/16/20 15:59 Oxygen Delivery Method OxyMask 07/16/20 19:55 Oxygen Flow Rate 8 07/16/20 19:55 Pain Level 9 07/16/20 19:11 Comment 07/16/20 03:36 Intake & Output 07/15/20 07/16/20 07/16/20 23:59 11:59 23:59 Intake Total 999 / 1999 2050.00 / 3018.750 968.750 / 3018.750 Output Total 950 / 1350 200 / 780 580 / 780 Balance 50 / 650 1850.00 / 2238.750 388.750 / 2238.750 Intake: IV 999 / 1999 2050.00 / 3018.750 968.750 / 3018.750 Output: Gastric Drainage 250 / 250 Left Nare 250 / 250 Urine 950 / 1350 200 / 500 300 / 500 Estimated Blood Loss 30 / 30 Other: Urine Color Yellow Yellow Yellow Urine Appearance Clear Clear Urine Odor None None Comment minimal urine unable to proper record amount due to the tiolet paper inside commode. State she is unable to voidas before bladder scan was done at this time for 61Mls patient was bladder scanned due to fact she state she is not voiding as she used to Emesis Description None Voiding Methods Toilet Toilet Laboratory Results WBC 6.09 10^3/uL (4.4-10.8) D 07/16/20 06:45 RBC 4.46 10^6/uL (3.93-5.22) 07/16/20 06:45 Hgb 11.7 g/dL (11.2-15.7) 07/16/20 06:45 Hct 38.4 % (36.0-46.0) 07/16/20 06:45 MCV 86.1 fL (80-95) 07/16/20 06:45 MCH 26.2 pg (27.0-33.0) L 07/16/20 06:45 MCHC 30.5 % (32.0-36.0) L 07/16/20 06:45 RDW 20.6 % (11.7-14.6) H 07/16/20 06:45 Plt Count 570 10^3/uL (130-400) H 07/16/20 06:45 MPV 8.6 fL (8.0-11.0) 07/16/20 06:45 Immature Gran % 0.0 07/16/20 06:45 Neutrophils % 40.0 07/16/20 06:45 Band Neutrophils % 38 07/16/20 06:45 Lymphocytes % 7.0 07/16/20 06:45 Monocytes % 15.0 07/16/20 06:45 Eosinophils % 0.0 07/16/20 06:45 Basophils % 0.0 07/16/20 06:45 Nucleated RBC % 0 % 07/16/20 06:45 Absolute Neutrophils 4.75 10^3/uL (1.2-6.7) 07/16/20 06:45 Absolute Lymphocytes 0.43 10^3/uL (1.2-3.4) L 07/16/20 06:45 Absolute Monocytes 0.91 10^3/uL (0.1-0.8) H 07/16/20 06:45 Absolute Eosinophils 0.00 10^3/uL (0.0-0.7) 07/16/20 06:45 Absolute Basophils 0.00 10^3/uL (0.0-0.2) 07/16/20 06:45 RBC Morphology See below 07/16/20 06:45 Polychromasia Present 07/16/20 06:45 Anisocytosis 2+ 07/16/20 06:45 Microcytosis 1+ 07/16/20 06:45 Macrocytosis 1+ 07/16/20 06:45 PT 9.4 sec (9.3-11.0) 07/15/20 05:35 INR 0.9 (0.9-1.1) 07/15/20 05:35 APTT 22.6 sec (21.0-31.4) 07/15/20 05:35 VBG Lactate 1.1 mmol/L (0.6-1.4) 07/15/20 05:35 Sodium 144 mmol/L (136-145) 07/16/20 06:45 Potassium 3.4 mmol/L (3.5-5.1) L 07/16/20 06:45 Chloride 107 mmol/L (98-107) 07/16/20 06:45 Carbon Dioxide 28.7 mmol/L (21.0-32.0) 07/16/20 06:45 Anion Gap 8.3 mmol/L (3-11) 07/16/20 06:45 BUN 19 mg/dL (7-18) H 07/16/20 06:45 Creatinine 0.95 mg/dL (0.55-1.02) 07/16/20 06:45 Estimated GFR/1.73 m2 58.33 (mL/min/1.73m2) 07/16/20 06:45 Glucose 163 mg/dL (74-106) H 07/16/20 06:45 Calcium 9.2 mg/dL (8.5-10.1) 07/16/20 06:45 Magnesium 1.8 mg/dL (1.8-2.4) 07/15/20 05:35 Total Bilirubin 0.3 mg/dL (0.2-1.0) 07/15/20 05:35 Total Bilirubin 0.3 mg/dL (0.2-1.0) 07/15/20 05:35 Conjugated Bilirubin 0.07 mg/dL (0.00-0.20) 07/15/20 05:35 AST 34 U/L (15-37) 07/15/20 05:35 ALT 40 U/L (14-59) 07/15/20 05:35 Alkaline Phosphatase 94 U/L (46-116) 07/15/20 05:35 Total Protein 7.3 g/dL (6.4-8.2) 07/15/20 05:35 Albumin 3.2 g/dL (3.4-5.0) L 07/15/20 05:35 Lipase 43 U/L (73-393) 07/15/20 05:35 Urine Color Yellow (Yellow) 07/15/20 07:28 Urine Clarity Clear (Clear) 07/15/20 07:28 Urine pH 7.0 (5-8) 07/15/20 07:28 Ur Specific [place] 1.010 (1.005-1.025) 07/15/20 07:28 Urine Protein Negative mg/dL (Negative) 07/15/20 07:28 Urine Ketones Negative mg/dL (Negative) 07/15/20 07:28 Urine Blood Negative (Negative) 07/15/20 07:28 Urine Nitrite Negative (Negative) 07/15/20 07:28 Urine Bilirubin Negative (Negative) 07/15/20 07:28 Urine Urobilinogen 0.2 EU/dL (Up TO 0.2) 07/15/20 07:28 Ur Leukocyte Esterase Negative (Negative) 07/15/20 07:28 Urine Glucose Negative mg/dL (Negative) 07/15/20 07:28 COVID-19 PCR Negative (Negative) 07/15/20 08:15 Nasopharyn COVID-19 PCR Not Applicable 07/15/20 08:15 Ref Test Perform Site [facility] lab 07/15/20 08:15
[2020-07-17] VITALS (13 sets, daily range): BP systolic 111–131; BP diastolic 74–85; PULSE 86–94; RESP 11–20; TEMP 37–37.2; O2SAT 91–100
[2020-07-17] MEDS: Ketorolac 15 MG/ML VIAL IVP ×4 (01:18→20:14)
[2020-07-17] MEDS: metroNIDAZOLE 500 MG/100 ML BAG 100 MG IVPB ×2 (01:18→10:06)
[2020-07-17] MEDS: Normal Saline Flush 10 ML SYR IVP ×5 (01:20→20:07)
[2020-07-17] MEDS: ACETAMINOPHEN 1,000 MG/100 ML BTL 400 MG IVPB ×3 (03:11→20:05)
[2020-07-17] MEDS: Lactated Ringers 1,000 ML 125 ML IV ×3 (03:21→21:30)
[2020-07-17] MEDS: ceFAZolin 1 GM/50 ML BAG IVPB ×2 (04:00→11:35)
[2020-07-17 06:58] LABS: Anion Gap 8.9 mmol/L (3-11); BUN 32 mg/dL (7-18); CO2 27.1 mmol/L (21.0-32.0); CREATININE 1.24 mg/dL (0.55-1.02); Calcium 8.3 mg/dL (8.5-10.1); Chloride 104 mmol/L (98-107); Estimated GFR 42.89 (mL/min/1.73m2); Glucose 111 mg/dL (74-106); Magnesium 1.5 mg/dL (1.8-2.4); Potassium 3.4 mmol/L (3.5-5.1); Sodium 140 mmol/L (136-145)
[2020-07-17 08:03] LABS: HCT 30.8 % (36.0-46.0); HGB 9.3 g/dL (11.2-15.7); MCH 26.6 pg (27.0-33.0); MCHC 30.2 % (32.0-36.0); MCV 88.3 fL (80-95); MPV 9.2 fL (8.0-11.0); Platelet Count 488 10^3/uL (130-400); RBC 3.49 10^6/uL (3.93-5.22); RDW-SD 67.2 fL; WBC 9.33 10^3/uL (4.4-10.8)
[2020-07-17] MEDS: Levothyroxine 100 MCG VIAL 60 MCG IVP (08:19)
--- NOTE | 2020-07-17 08:54 | W.PM.PROGNOT ---
Date of Service Date of service: 07/17/20 Time of Service: 08:54 Assessment and Plan Assessment and plan (1) Cecum mass: Status: Acute Assessment and plan: POD #1 s/p right Hemicolectomy. 02 sats improved this morning with supplemental 02. Encouraged deep breathing and use of the incentive spirometer as well as getting out of bed and sitting in the chair. Pain control- Pain seems to be well controlled. Toradol ordered as well as IV Tylenol to try and get pain controlled without making patient too somnolent NG tube- continue to LIWS. Diet- continue NPO except for ice chips Morton- Dark, nicolasa colored urine. Continue IV fluids, will order an additional 500cc bolus. Subjective Subjective Interval history since last seen: She reports not getting much sleep last night. Abdominal soreness. She is eager to get out of bed and to wash up this morning. Exam Const General: cooperative, healthy appearing and comfortable Orientation: alert and oriented x3 Resp Effort & Inspection: normal respiratory effort, no audible wheezes and no cough GI Inspection: normal to inspection and incision (covered with dressings ) Palpation: soft, no guarding and tender in the RUQ Auscultation: normal bowel sounds Objective Objective Clinical Data: Abnormal lab results 07/17/20 07/17/20 Range/Units 06:00 06:00 RBC 3.49 L (3.93-5.22) 10^6/uL Hgb 9.3 L D (11.2-15.7) g/dL Hct 30.8 L (36.0-46.0) % MCH 26.6 L (27.0-33.0) pg MCHC 30.2 L (32.0-36.0) % RDW 21.0 H (11.7-14.6) % Plt Count 488 H (130-400) 10^3/uL Potassium 3.4 L (3.5-5.1) mmol/L BUN 32 H D (7-18) mg/dL Creatinine 1.24 H (0.55-1.02) mg/dL Glucose 111 H (74-106) mg/dL Calcium 8.3 L (8.5-10.1) mg/dL Magnesium 1.5 L (1.8-2.4) mg/dL Vital Signs Temperature 37.2 C 07/17/20 07:47 Temperature Source Temporal Artery Scan 07/17/20 07:47 Pulse 93 H 07/17/20 07:47 Pulse Rhythm Regular 07/16/20 23:34 Pulse Strength Normal 07/15/20 08:23 Respiratory Rate 20 07/17/20 07:47 Respiratory Effort Non-Labored 07/16/20 23:34 Respiratory Depth Normal 07/16/20 23:34 Respiratory Pattern Normal 07/16/20 23:34 Blood Pressure 131/83 07/17/20 07:47 Blood Pressure Mean 95 07/15/20 08:23 Blood Pressure Position Supine 07/15/20 05:28 Pulse Oximetry 100 07/17/20 07:47 Respiratory End-tidal CO2 22 07/16/20 15:59 Oxygen Delivery Method OxyMask 07/17/20 07:47 Oxygen Flow Rate 6 07/17/20 07:47 Pain Level 4 07/17/20 08:19 Comment 07/16/20 23:25 Intake & Output 07/16/20 07/17/20 07/17/20 18:59 06:59 18:59 Intake Total 2050.000 / 3302.983 1252.983 / 3302.983 Output Total 680 / 1580 900 / 1580 Balance 1370.000 / 1722.983 352.983 / 1722.983 Intake: IV 2050.000 / 3302.983 1252.983 / 3302.983 Output: Gastric Drainage 250 / 850 600 / 850 Left Nare 250 / 850 600 / 850 Urine 400 / 700 300 / 700 Estimated Blood Loss 30 / 30 Other: Urine Color Yellow Light Nicolasa Urine Appearance Clear Clear Emesis Description None Laboratory Results WBC 9.33 10^3/uL (4.4-10.8) D 07/17/20 06:00 RBC 3.49 10^6/uL (3.93-5.22) L 07/17/20 06:00 Hgb 9.3 g/dL (11.2-15.7) L D 07/17/20 06:00 Hct 30.8 % (36.0-46.0) L 07/17/20 06:00 MCV 88.3 fL (80-95) 07/17/20 06:00 MCH 26.6 pg (27.0-33.0) L 07/17/20 06:00 MCHC 30.2 % (32.0-36.0) L 07/17/20 06:00 RDW 21.0 % (11.7-14.6) H 07/17/20 06:00 Plt Count 488 10^3/uL (130-400) H 07/17/20 06:00 MPV 9.2 fL (8.0-11.0) 07/17/20 06:00 Immature Gran % 0.0 07/16/20 06:45 Neutrophils % 40.0 07/16/20 06:45 Band Neutrophils % 38 07/16/20 06:45 Lymphocytes % 7.0 07/16/20 06:45 Monocytes % 15.0 07/16/20 06:45 Eosinophils % 0.0 07/16/20 06:45 Basophils % 0.0 07/16/20 06:45 Nucleated RBC % 0 % 07/16/20 06:45 Absolute Neutrophils 4.75 10^3/uL (1.2-6.7) 07/16/20 06:45 Absolute Lymphocytes 0.43 10^3/uL (1.2-3.4) L 07/16/20 06:45 Absolute Monocytes 0.91 10^3/uL (0.1-0.8) H 07/16/20 06:45 Absolute Eosinophils 0.00 10^3/uL (0.0-0.7) 07/16/20 06:45 Absolute Basophils 0.00 10^3/uL (0.0-0.2) 07/16/20 06:45 RBC Morphology See below 07/16/20 06:45 Polychromasia Present 07/16/20 06:45 Anisocytosis 2+ 07/16/20 06:45 Microcytosis 1+ 07/16/20 06:45 Macrocytosis 1+ 07/16/20 06:45 PT 9.4 sec (9.3-11.0) 07/15/20 05:35 INR 0.9 (0.9-1.1) 07/15/20 05:35 APTT 22.6 sec (21.0-31.4) 07/15/20 05:35 VBG Lactate 1.1 mmol/L (0.6-1.4) 07/15/20 05:35 Sodium Cancelled 07/17/20 07:42 Potassium Cancelled 07/17/20 07:42 Chloride Cancelled 07/17/20 07:42 Carbon Dioxide Cancelled 07/17/20 07:42 Anion Gap Cancelled 07/17/20 07:42 BUN Cancelled 07/17/20 07:42 Creatinine Cancelled 07/17/20 07:42 Estimated GFR/1.73 m2 Cancelled 07/17/20 07:42 Glucose Cancelled 07/17/20 07:42 Calcium Cancelled 07/17/20 07:42 Magnesium 1.5 mg/dL (1.8-2.4) L 07/17/20 06:00 Total Bilirubin 0.3 mg/dL (0.2-1.0) 07/15/20 05:35 Total Bilirubin 0.3 mg/dL (0.2-1.0) 07/15/20 05:35 Conjugated Bilirubin 0.07 mg/dL (0.00-0.20) 07/15/20 05:35 AST 34 U/L (15-37) 07/15/20 05:35 ALT 40 U/L (14-59) 07/15/20 05:35 Alkaline Phosphatase 94 U/L (46-116) 07/15/20 05:35 Total Protein 7.3 g/dL (6.4-8.2) 07/15/20 05:35 Albumin 3.2 g/dL (3.4-5.0) L 07/15/20 05:35 Lipase 43 U/L (73-393) 07/15/20 05:35 Carcinoembryonic Ag 37.0 ng/ml (See Note) 07/16/20 06:45 Urine Color Yellow (Yellow) 07/15/20 07:28 Urine Clarity Clear (Clear) 07/15/20 07:28 Urine pH 7.0 (5-8) 07/15/20 07:28 Ur Specific [place] 1.010 (1.005-1.025) 07/15/20 07:28 Urine Protein Negative mg/dL (Negative) 07/15/20 07:28 Urine Ketones Negative mg/dL (Negative) 07/15/20 07:28 Urine Blood Negative (Negative) 07/15/20 07:28 Urine Nitrite Negative (Negative) 07/15/20 07:28 Urine Bilirubin Negative (Negative) 07/15/20 07:28 Urine Urobilinogen 0.2 EU/dL (Up TO 0.2) 07/15/20 07:28 Ur Leukocyte Esterase Negative (Negative) 07/15/20 07:28 Urine Glucose Negative mg/dL (Negative) 07/15/20 07:28 COVID-19 PCR Negative (Negative) 07/15/20 08:15 Nasopharyn COVID-19 PCR Not Applicable 07/15/20 08:15 Ref Test Perform Site [facility] 07/15/20 08:15
[2020-07-17] MEDS: Lactated Ringers 500 ML IV (10:08)
--- NOTE | 2020-07-17 15:16 | CMPROGNOTE_ITS ---
- If Service Date Differs Date of service: 07/17/20 Time of Service: 15:17 Care Management Progress Note S/O: Maryjo was sitting up in her chair when CM met with her. She reported that she was feeling good today, with very little pain, but she is very sleepy. CM had attempted to meet with her earlier, but she was sleeping. She reported that she requested to hold her Methylphenidate yesterday, but she would like it to be re started today, as it helps her stay awake. CLAUDETTE relayed that information to her RN. She has an NG tube placed currently for her SBO. She stated that she feels that she may need additional support at home upon discharge. CM will continue to follow. A: Maryjo is a 69 year old female admitted to [facility] on 07/15/20 with Partial SBO. P: Anticipate Maryjo will return home when medically cleared. Evaluations needed to determine necessity of increased services at home upon discharge. She will be driven home by her when ready. She will follow up with her PCP and discharge plan of care. CM will continue to follow.
[2020-07-17] MEDS: risperiDONE 0.5 MG TAB PO (20:07)
[2020-07-18] VITALS (11 sets, daily range): BP systolic 135–167; BP diastolic 84–97; PULSE 73–111; RESP 17–22; TEMP 36.3–37.7; O2SAT 92–95
[2020-07-18] MEDS: Ketorolac 15 MG/ML VIAL IVP ×3 (01:15→14:54)
[2020-07-18] MEDS: Normal Saline Flush 10 ML SYR IVP ×3 (01:15→11:51)
[2020-07-18] MEDS: ACETAMINOPHEN 1,000 MG/100 ML BTL 400 MG IVPB ×2 (03:28→11:50)
[2020-07-18] MEDS: Lactated Ringers 1,000 ML 125 ML IV (04:14)
[2020-07-18 07:29] LABS: Anion Gap 7.4 mmol/L (3-11); BUN 22 mg/dL (7-18); CO2 27.6 mmol/L (21.0-32.0); CREATININE 0.72 mg/dL (0.55-1.02); Calcium 8.6 mg/dL (8.5-10.1); Chloride 103 mmol/L (98-107); Glucose 87 mg/dL (74-106); Potassium 3.1 mmol/L (3.5-5.1); Sodium 138 mmol/L (136-145)
[2020-07-18 07:30] LABS: HCT 30.4 % (36.0-46.0); HGB 9.5 g/dL (11.2-15.7); MCH 26.8 pg (27.0-33.0); MCHC 31.3 % (32.0-36.0); MCV 85.6 fL (80-95); MPV 8.7 fL (8.0-11.0); Platelet Count 443 10^3/uL (130-400); RBC 3.55 10^6/uL (3.93-5.22); RDW 20.2 % (11.7-14.6); RDW-SD 63.3 fL; WBC 10.78 10^3/uL (4.4-10.8)
--- NOTE | 2020-07-18 08:50 | PGE_ITS ---
Date of Service Date of service: 07/18/20 Time of Service: 08:50 Assessment and Plan Assessment and plan (1) Cecum mass: Status: Acute Assessment and plan: POD #2 s/p right Hemicolectomy. 02 sats at 94% on supplemental 02. Encouraged deep breathing and use of the incentive spirometer as well as getting out of bed and sitting in the chair. Pain control- Pain seems to be well controlled. NG tube- continue to LIWS. ~20ccs in canister this morning, of dark brown liquid. Diet- continue NPO except for ice chips Morton- Yellow colored urine. Continue IV fluids. Subjective Subjective Interval history since last seen: Patient reports she is having a miserable morning so far due to not being able to get around and move much. She reports she was not able to sleep much over night. Abdomen is sore. She participated in activities out of bed as well as PT per the patient. Exam Const General: cooperative, healthy appearing and comfortable Orientation: alert and oriented x3 Resp Effort & Inspection: normal respiratory effort, no audible wheezes and no cough GI Inspection: normal to inspection and incision (dressing in place. ) Palpation: soft, no guarding and tender Auscultation: normal bowel sounds Objective Objective Clinical Data: Abnormal lab results 07/18/20 07/18/20 Range/Units 07:05 07:05 RBC 3.55 L (3.93-5.22) 10^6/uL Hgb 9.5 L (11.2-15.7) g/dL Hct 30.4 L (36.0-46.0) % MCH 26.8 L (27.0-33.0) pg MCHC 31.3 L (32.0-36.0) % RDW 20.2 H (11.7-14.6) % Plt Count 443 H (130-400) 10^3/uL Potassium 3.1 L (3.5-5.1) mmol/L BUN 22 H D (7-18) mg/dL Vital Signs Temperature 37.1 C 07/18/20 07:47 Temperature Source Temporal Artery Scan 07/18/20 07:47 Pulse 99 H 07/18/20 07:47 Pulse Rhythm Regular 07/18/20 01:15 Pulse Strength Normal 07/15/20 08:23 Respiratory Rate 18 07/18/20 07:47 Respiratory Effort Non-Labored 07/18/20 01:15 Respiratory Depth Normal 07/18/20 01:15 Respiratory Pattern Normal 07/18/20 01:15 Blood Pressure 157/95 H 07/18/20 07:47 Blood Pressure Mean 95 07/15/20 08:23 Blood Pressure Position Supine 07/15/20 05:28 Pulse Oximetry 94 L 07/18/20 07:47 Respiratory End-tidal CO2 22 07/16/20 15:59 Oxygen Delivery Method Nasal Cannula 07/18/20 07:47 Oxygen Flow Rate 1 07/18/20 07:47 Pain Level 6 07/18/20 07:47 Comment 07/16/20 23:25 Intake & Output 07/17/20 07/18/20 07/18/20 18:59 06:59 18:59 Intake Total 1900 / 3841.667 1941.667 / 3841.667 Output Total 450 / 1750 1300 / 1750 1000 / 1000 Balance 1450 / 2091.667 641.667 / 2091.667 -1000 / -1000 Intake: IV 1600 / 3541.667 1941.667 / 3541.667 Oral 300 / 300 Output: Gastric Drainage 700 / 700 Left Nare 700 / 700 Urine 450 / 1050 600 / 1050 1000 / 1000 Other: Urine Color Yellow Dark Marit[place] Yellow Brown Urine Appearance Clear Clear Clear Urine Odor Strong Voiding Methods Indwelling Catheter Laboratory Results WBC 10.78 10^3/uL (4.4-10.8) 07/18/20 07:05 RBC 3.55 10^6/uL (3.93-5.22) L 07/18/20 07:05 Hgb 9.5 g/dL (11.2-15.7) L 07/18/20 07:05 Hct 30.4 % (36.0-46.0) L 07/18/20 07:05 MCV 85.6 fL (80-95) 07/18/20 07:05 MCH 26.8 pg (27.0-33.0) L 07/18/20 07:05 MCHC 31.3 % (32.0-36.0) L 07/18/20 07:05 RDW 20.2 % (11.7-14.6) H 07/18/20 07:05 Plt Count 443 10^3/uL (130-400) H 07/18/20 07:05 MPV 8.7 fL (8.0-11.0) 07/18/20 07:05 Immature Gran % 0.0 07/16/20 06:45 Neutrophils % 40.0 07/16/20 06:45 Band Neutrophils % 38 07/16/20 06:45 Lymphocytes % 7.0 07/16/20 06:45 Monocytes % 15.0 07/16/20 06:45 Eosinophils % 0.0 07/16/20 06:45 Basophils % 0.0 07/16/20 06:45 Nucleated RBC % 0 % 07/16/20 06:45 Absolute Neutrophils 4.75 10^3/uL (1.2-6.7) 07/16/20 06:45 Absolute Lymphocytes 0.43 10^3/uL (1.2-3.4) L 07/16/20 06:45 Absolute Monocytes 0.91 10^3/uL (0.1-0.8) H 07/16/20 06:45 Absolute Eosinophils 0.00 10^3/uL (0.0-0.7) 07/16/20 06:45 Absolute Basophils 0.00 10^3/uL (0.0-0.2) 07/16/20 06:45 RBC Morphology See below 07/16/20 06:45 Polychromasia Present 07/16/20 06:45 Anisocytosis 2+ 07/16/20 06:45 Microcytosis 1+ 07/16/20 06:45 Macrocytosis 1+ 07/16/20 06:45 PT 9.4 sec (9.3-11.0) 07/15/20 05:35 INR 0.9 (0.9-1.1) 07/15/20 05:35 APTT 22.6 sec (21.0-31.4) 07/15/20 05:35 VBG Lactate 1.1 mmol/L (0.6-1.4) 07/15/20 05:35 Sodium 138 mmol/L (136-145) 07/18/20 07:05 Potassium 3.1 mmol/L (3.5-5.1) L 07/18/20 07:05 Chloride 103 mmol/L (98-107) 07/18/20 07:05 Carbon Dioxide 27.6 mmol/L (21.0-32.0) 07/18/20 07:05 Anion Gap 7.4 mmol/L (3-11) 07/18/20 07:05 BUN 22 mg/dL (7-18) H D 07/18/20 07:05 Creatinine 0.72 mg/dL (0.55-1.02) D 07/18/20 07:05 Estimated GFR/1.73 m2 >= 60.00 (mL/min/1.73m2) 07/18/20 07:05 Glucose 87 mg/dL (74-106) 07/18/20 07:05 Calcium 8.6 mg/dL (8.5-10.1) 07/18/20 07:05 Magnesium 1.5 mg/dL (1.8-2.4) L 07/17/20 06:00 Total Bilirubin 0.3 mg/dL (0.2-1.0) 07/15/20 05:35 Total Bilirubin 0.3 mg/dL (0.2-1.0) 07/15/20 05:35 Conjugated Bilirubin 0.07 mg/dL (0.00-0.20) 07/15/20 05:35 AST 34 U/L (15-37) 07/15/20 05:35 ALT 40 U/L (14-59) 07/15/20 05:35 Alkaline Phosphatase 94 U/L (46-116) 07/15/20 05:35 Total Protein 7.3 g/dL (6.4-8.2) 07/15/20 05:35 Albumin 3.2 g/dL (3.4-5.0) L 07/15/20 05:35 Lipase 43 U/L (73-393) 07/15/20 05:35 Carcinoembryonic Ag 37.0 ng/ml (See Note) 07/16/20 06:45 Urine Color Yellow (Yellow) 07/15/20 07:28 Urine Clarity Clear (Clear) 07/15/20 07:28 Urine pH 7.0 (5-8) 07/15/20 07:28 Ur Specific [place] 1.010 (1.005-1.025) 07/15/20 07:28 Urine Protein Negative mg/dL (Negative) 07/15/20 07:28 Urine Ketones Negative mg/dL (Negative) 07/15/20 07:28 Urine Blood Negative (Negative) 07/15/20 07:28 Urine Nitrite Negative (Negative) 07/15/20 07:28 Urine Bilirubin Negative (Negative) 07/15/20 07:28 Urine Urobilinogen 0.2 EU/dL (Up TO 0.2) 07/15/20 07:28 Ur Leukocyte Esterase Negative (Negative) 07/15/20 07:28 Urine Glucose Negative mg/dL (Negative) 07/15/20 07:28 COVID-19 PCR Negative (Negative) 07/15/20 08:15 Nasopharyn COVID-19 PCR Not Applicable 07/15/20 08:15 Path Cons Comment 07/16/20 06:45 Ref Test Perform Site [facility] lab 07/15/20 08:15
[2020-07-18] MEDS: Levothyroxine 100 MCG VIAL 60 MCG IVP (09:20)
[2020-07-18] MEDS: risperiDONE 0.5 MG TAB PO ×3 (09:20→19:48)
--- NOTE | 2020-07-18 11:41 | NS.NUTBLAN_ITS ---
Date of service: 07/18/20 Time of Service: 11:41 Nutritional Consult ASSESSMENT: 69 year old female admitted on 07/15 for cecum mass with SBO, POD #2 s/p right hemicolectomy. Continues on ice chips only, awaiting bowel sounds, NG tube in place with some drainage. BMI 36 indicates class 2 obesity, can sustain 7 days with minimal intake as long has IV fluids replaced. Meds include propofol- providing 150 calories from fat. Today is day 4 of minimal intake. Expect diet advancement in next 24 hours. Estimated Needs: [id number] kcal, 60- 70 g protein. NUTRITIONAL DIAGNOSIS: Minimal nutrient intake due to NPO status s/p surgery for SBO. INTERVENTION: advance diet as tolerated MONITORING AND EVALUATION: will monitor diet advancement, labs, po intake. If unable to advance diet by 07/19/20, may need to consider nutrition support to maintain lean body mass and immune function. Time Spent in Nutritional Counseling and Treatment: 0 time spent face to face
[2020-07-18] MEDS: Enoxaparin 40 MG/0.4 ML SYR SC (14:54)
[2020-07-18] MEDS: FLUoxetine 20 MG CAP 80 MG PO (14:54)
--- NOTE | 2020-07-18 17:55 | CMPROGNOTE_ITS ---
- If Service Date Differs Date of service: 07/18/20 Time of Service: 17:56 Care Management Progress Note S/O: Maryjo was sitting in bed when CM met with her. She stated that she is very concerned about her psych meds that are currently being held (Prozac, most importantly). She reported that she has gone without them for three days in the past, and she had a very bad reaction, becoming very suicidal. Her meds are prescribed by a licensed psychologist in [place], which was a referral from her PCP, Dr. Grzegorz quinones. CM expressed this concern to her RN, and also attempted to contact Dr. Severino, unsuccessfully. Her RN and the clinical coordinator were both informed of this concern. Per report from this afternoon, her home meds will be resumed. Her NG tube was removed this morning, which she was happy about. CM will continue to follow. A: Maryjo is a 69 year old female admitted to [facility] on 07/15/20 with Partial SBO. P: Anticipate Maryjo will return home when medically cleared. Evaluations needed to determine necessity of increased services at home upon discharge. She will be driven home by her when ready. She will follow up with her PCP and discharge plan of care. CM will continue to follow.
[2020-07-18] MEDS: Zolpidem 5 MG TAB PO (21:44)
--- NOTE | 2020-07-18 22:34 | NUR.NOTE ---
pt sleeping. refused to have lights dimmed. reports having nightmares while here. no needs. Nursing Note:
[2020-07-18] MEDS: Acetaminophen 325 MG TAB 650 MG PO (23:24)
[2020-07-19 03:06] VITALS: RESP 18
[2020-07-19] MEDS: Levothyroxine 112 MCG TAB PO (05:44)
[2020-07-19 08:15] VITALS: BP 157/91; PULSE 100; RESP 20; TEMP 37.4; O2SAT 91
[2020-07-19] MEDS: FLUoxetine 20 MG CAP 80 MG PO (08:18)
[2020-07-19] MEDS: risperiDONE 0.5 MG TAB PO (08:18)
[2020-07-19] MEDS: Docusate Sodium 100 MG CAP PO (08:18)
--- NOTE | 2020-07-19 08:39 | PGE_ITS ---
Date of Service Date of service: 07/19/20 Time of Service: 08:39 Assessment and Plan Assessment and plan (1) Cecum mass: Status: Acute Assessment and plan: POD #3 s/p right Hemicolectomy. Arrive with patient on room air. Pain control- Pain seems to be well controlled. Diet- She ate a small amount of soft foods last night. She can take a shower today. Dressings can be removed and replaced. Discussed with her not scrubbing the incision sites, allowing them to be gently cleansed with warm soapy water. She states she has not yet had a BM. Subjective Subjective Interval history since last seen: Patient reports that she is feeling well today and is requesting to be able to take a shower. Exam Const General: cooperative, healthy appearing and comfortable Orientation: alert and oriented x3 Resp Effort & Inspection: normal respiratory effort, no audible wheezes and no cough GI Inspection: normal to inspection Palpation: soft, no guarding and nontender Auscultation: normal bowel sounds Objective Objective Clinical Data: Vital Signs Temperature 37.7 C H 07/18/20 23:44 Temperature Source Tympanic 07/18/20 23:44 Pulse 106 H 07/18/20 23:44 Pulse Rhythm Regular 07/19/20 01:25 Pulse Strength Normal 07/15/20 08:23 Respiratory Rate 07/18/20 23:44 Respiratory Effort 07/19/20 01:25 Respiratory Depth Normal 07/19/20 01:25 Respiratory Pattern Normal 07/19/20 01:25 Blood Pressure 135/84 07/18/20 23:44 Blood Pressure Mean 95 07/15/20 08:23 Blood Pressure Position Supine 07/15/20 05:28 Pulse Oximetry 92 L 07/18/20 23:44 Respiratory End-tidal CO2 22 07/16/20 15:59 Oxygen Delivery Method Room Air 07/18/20 23:44 Oxygen Flow Rate 0 07/18/20 23:44 Pain Level 4 07/18/20 23:24 Comment 07/16/20 23:25 Intake & Output 07/18/20 07/19/20 07/19/20 18:59 06:59 18:59 Output Total 3200 / 4650 1450 / 4650 Balance -3200 / -4650 -1450 / -4650 Output: Gastric Drainage 200 / 200 Left Nare 200 / 200 Urine 3000 / 4450 1450 / 4450 Other: Urine Color Pale Pale Yellow Yellow Urine Appearance Clear Clear Urine Odor None Normal Comment RN took pt to the bathroom and collected the urine Urine mixed with stool. Stool Size Large Stool Characteristics Soft Formed Brown Voiding Methods Toilet Laboratory Results WBC 10.78 10^3/uL (4.4-10.8) 07/18/20 07:05 RBC 3.55 10^6/uL (3.93-5.22) L 07/18/20 07:05 Hgb 9.5 g/dL (11.2-15.7) L 07/18/20 07:05 Hct 30.4 % (36.0-46.0) L 07/18/20 07:05 MCV 85.6 fL (80-95) 07/18/20 07:05 MCH 26.8 pg (27.0-33.0) L 07/18/20 07:05 MCHC 31.3 % (32.0-36.0) L 07/18/20 07:05 RDW 20.2 % (11.7-14.6) H 07/18/20 07:05 Plt Count 443 10^3/uL (130-400) H 07/18/20 07:05 MPV 8.7 fL (8.0-11.0) 07/18/20 07:05 Immature Gran % 0.0 07/16/20 06:45 Neutrophils % 40.0 07/16/20 06:45 Band Neutrophils % 38 07/16/20 06:45 Lymphocytes % 7.0 07/16/20 06:45 Monocytes % 15.0 07/16/20 06:45 Eosinophils % 0.0 07/16/20 06:45 Basophils % 0.0 07/16/20 06:45 Nucleated RBC % 0 % 07/16/20 06:45 Absolute Neutrophils 4.75 10^3/uL (1.2-6.7) 07/16/20 06:45 Absolute Lymphocytes 0.43 10^3/uL (1.2-3.4) L 07/16/20 06:45 Absolute Monocytes 0.91 10^3/uL (0.1-0.8) H 07/16/20 06:45 Absolute Eosinophils 0.00 10^3/uL (0.0-0.7) 07/16/20 06:45 Absolute Basophils 0.00 10^3/uL (0.0-0.2) 07/16/20 06:45 RBC Morphology See below 07/16/20 06:45 Polychromasia Present 07/16/20 06:45 Anisocytosis 2+ 07/16/20 06:45 Microcytosis 1+ 07/16/20 06:45 Macrocytosis 1+ 07/16/20 06:45 PT 9.4 sec (9.3-11.0) 07/15/20 05:35 INR 0.9 (0.9-1.1) 07/15/20 05:35 APTT 22.6 sec (21.0-31.4) 07/15/20 05:35 VBG Lactate 1.1 mmol/L (0.6-1.4) 07/15/20 05:35 Sodium 138 mmol/L (136-145) 07/18/20 07:05 Potassium 3.1 mmol/L (3.5-5.1) L 07/18/20 07:05 Chloride 103 mmol/L (98-107) 07/18/20 07:05 Carbon Dioxide 27.6 mmol/L (21.0-32.0) 07/18/20 07:05 Anion Gap 7.4 mmol/L (3-11) 07/18/20 07:05 BUN 22 mg/dL (7-18) H D 07/18/20 07:05 Creatinine 0.72 mg/dL (0.55-1.02) D 07/18/20 07:05 Estimated GFR/1.73 m2 >= 60.00 (mL/min/1.73m2) 07/18/20 07:05 Glucose 87 mg/dL (74-106) 07/18/20 07:05 Calcium 8.6 mg/dL (8.5-10.1) 07/18/20 07:05 Magnesium 1.5 mg/dL (1.8-2.4) L 07/17/20 06:00 Total Bilirubin 0.3 mg/dL (0.2-1.0) 07/15/20 05:35 Total Bilirubin 0.3 mg/dL (0.2-1.0) 07/15/20 05:35 Conjugated Bilirubin 0.07 mg/dL (0.00-0.20) 07/15/20 05:35 AST 34 U/L (15-37) 07/15/20 05:35 ALT 40 U/L (14-59) 07/15/20 05:35 Alkaline Phosphatase 94 U/L (46-116) 07/15/20 05:35 Total Protein 7.3 g/dL (6.4-8.2) 07/15/20 05:35 Albumin 3.2 g/dL (3.4-5.0) L 07/15/20 05:35 Lipase 43 U/L (73-393) 07/15/20 05:35 Carcinoembryonic Ag 37.0 ng/ml (See Note) 07/16/20 06:45 Urine Color Yellow (Yellow) 07/15/20 07:28 Urine Clarity Clear (Clear) 07/15/20 07:28 Urine pH 7.0 (5-8) 07/15/20 07:28 Ur Specific [place] 1.010 (1.005-1.025) 07/15/20 07:28 Urine Protein Negative mg/dL (Negative) 07/15/20 07:28 Urine Ketones Negative mg/dL (Negative) 07/15/20 07:28 Urine Blood Negative (Negative) 07/15/20 07:28 Urine Nitrite Negative (Negative) 07/15/20 07:28 Urine Bilirubin Negative (Negative) 07/15/20 07:28 Urine Urobilinogen 0.2 EU/dL (Up TO 0.2) 07/15/20 07:28 Ur Leukocyte Esterase Negative (Negative) 07/15/20 07:28 Urine Glucose Negative mg/dL (Negative) 07/15/20 07:28 COVID-19 PCR Negative (Negative) 07/15/20 08:15 Nasopharyn COVID-19 PCR Not Applicable 07/15/20 08:15 Path Cons Comment 07/16/20 06:45 Ref Test Perform Site [facility] lab 07/15/20 08:15
--- NOTE | 2020-07-19 11:42 | W.PM.DS.N ---
Date of service: 07/19/20 Time of Service: 11:42 DS: Diagnosis Discharge Diagnosis (1) Cecum mass: Status: Acute Discharge Plan Disposition Patient Disposition: HOME Condition: Improving Discharge Details Chief Complaint: Abd Prob Clinical Impression: SBO (small bowel obstruction) Reason For Visit: Obstructing colon mass Admit Date/Time: 07/15/20 07:04 Admit Provider: Frances Severino Attending Provider: Frances Severino Primary Care Provider: Shayan Headley ED Provider: Martell Mohamud Hospital Course Hospital Course: This patient presented with symptoms typical of a small bowel obstruction. CT scan of the abdomen and pelvis showed a possible lesion near the ileocecal valve. The patient has never had a colonoscopy. She was taken to the operating room for laparoscopy and an ascending colon mass confirmed. She then underwent right hemicolectomy. An NG tube was placed during the procedure with 2500 cc removed. Her hospital course was unremarkable. The NG tube was removed on postoperative day 2 and a diet slowly advanced. She had adequate pain control with oral medication and used fairly little. She had a large bowel movement the day of discharge. She was alert and incisions were clean dry and intact. She was discharged home. Home Meds and New Rx's Prescriptions: New hydrocodone-acetaminophen 5-325 mg Tablet 1 tab PO Q6H PRN PRNQty: 20 RF: 0 Continued levothyroxine [Synthroid] 112 MCG tablet 112 mcg PO DAILY RF: 0 fluoxetine 40 MG capsule 80 mg PO DAILY RF: 0 prochlorperazine maleate 5 MG tablet 5 mg PO Q8H PRNRF: 0 pseudoephedrine HCl [Sudogest] 30 MG tablet 30 mg PO TID RF: 0 zolpidem 5 MG tablet 5 mg PO .QHS RF: 0 risperidone 0.5 MG tablet 0.5 mg PO TID RF: 0 ginkgo biloba 60 MG capsule 60 mg PO DAILY RF: 0 cyclobenzaprine 5 MG tablet 5 mg PO TID PRNRF: 0 calcium carbonate-vitamin D3 1 EACH tablet 1 tab PO DAILY RF: 0 hydrocodone-acetaminophen 5-325 mg tablet 1 tab PO HS PRN (Reason: Pain) RF: 0 methylphenidate HCl 20 mg tablet 20 mg PO TID PRNRF: 0 Discharge Instructions Additional Instructions: It is okay to shower tomorrow, the water can run over the roque. Do not swim or soak in a tub for two weeks. The incision can be left open to the air or covered with a gauze as needed. Call for any concerns including fever, increased pain, vomiting, incision redness or drainage. If you have more than 4 stools a day, please contact the office. Do not lift more than 15 pounds for four weeks. Walking and stairs are fine. Make sure to take 3-4 short walks/day Do not drive if on narcotic pain meds or if limited by pain. May use Tylenol alternating with ibuprofen for pain control. Ice is also an option. The maximum dose for Tylenol is 4000 mg/day. May use ibuprofen 800 mg every 8 hours as needed. If concerned about constipation, you may use a stool softener or milk of magnesia. Make sure to drink enough fluids to stay hydrated. Stand Alone Forms: Nursing Discharge Form Referrals: Frances Severino MD [ [facility] STAFF PHYSICIAN] - 07/25/20 9:45 am (please call for follow up appointment time.) Activity:: DO not lift more than 15 pounds Equipment/Supplies:: Walker Diet:: Soft, low fiber Discharge Orders Discharge Orders: Discharge Order (Routine); Ordered 07/19/20 Ordered By: Frances Severino DS: Summary Status at Discharge Functional status at discharge: uses cane/walker Overall status at discharge: patient is progressing back to baseline Mental Status: mental status grossly normal Speech and Movement: speech and movement normal Mood: congruent mood Affect: normal affect Exam Psych Mental Status: mental status grossly normal Speech and Movement: speech and movement normal Mood: congruent mood Affect: normal affect DS: Data Vitals/I&O Vitals and I&O: Vital Signs Temperature 99.3 F 07/19/20 08:15 Temperature Source Temporal Artery Scan 07/19/20 08:15 Pulse 100 H 07/19/20 08:15 Pulse Rhythm Regular 07/19/20 09:50 Pulse Strength Normal 07/15/20 08:23 Respiratory Rate 20 07/19/20 08:15 Respiratory Effort 07/19/20 09:50 Respiratory Depth Normal 07/19/20 09:50 Respiratory Pattern Normal 07/19/20 09:50 Blood Pressure 157/91 H 07/19/20 08:15 Blood Pressure Mean 95 07/15/20 08:23 Blood Pressure Position Supine 07/15/20 05:28 Pulse Oximetry 91 L 07/19/20 08:15 Respiratory End-tidal CO2 22 07/16/20 15:59 Oxygen Delivery Method Room Air 07/19/20 08:15 Oxygen Flow Rate 0 07/19/20 08:15 Pain Level 4 07/18/20 23:24 Comment 07/16/20 23:25 Intake & Output 07/18/20 07/18/20 07/19/20 11:59 23:59 11:59 Intake Total 941.667 / 941.667 Output Total 2250 / 5000 2750 / 5000 700 / 700 Balance -1308.333 / -4058.333 -2750 / -4058.333 -700 / -700 Intake: IV 941.667 / 941.667 Output: Gastric Drainage 650 / 650 Left Nare 650 / 650 Urine 1600 / 4350 2750 / 4350 700 / 700 Other: Urine Color Yellow Pale Yellow Yellow Urine Appearance Clear Clear Clear Urine Odor None Normal Comment RN took pt to the bathroom and collected the urine Urine mixed with stool. Stool Size Moderate Stool Characteristics Liquid Brown Voiding Methods Toilet [facility] Medical History Anxiety (Chronic) Asthma (Chronic) Depression (Chronic) GERD (gastroesophageal reflux disease) (Chronic) Hyperlipidemia (Inactive) Hypothyroidism (Inactive) Knee arthropathy (Acute) PTSD (post-traumatic stress disorder) (Inactive) Thrombocythemia (Acute) Surgical History History of cholecystectomy (Chronic) S/P right rotator cuff repair (Acute) Social History Smoking/Tobacco Use Status: Former Tobacco Use Alcohol Intake: former Drug use: Occasionally Substance use type: marijuana Do you feel safe at home: Yes Do you feel safe in your relationship?: Yes
[2020-07-19 12:13] VITALS: BP 142/83; PULSE 104; RESP 18; TEMP 36.7; O2SAT 93
--- NOTE | 2020-07-19 15:00 | PDOC.CMDIS ---
- If Service Date Differs Date of service: 07/19/20 Time of Service: 15:00 LACE Index Scoring Tool - Questions: Length of Stay (in days): 4 - 6 Acuity (Admit via E.D.?): Yes E.D. Visits: 1 - Answers: Total Score: 8 Risk of Readmission: Low Risk Care Management Discharge Reason for Hospitalization: SBO Discharge Plan: Maryjo will return home when medically cleared. Evaluations needed to determine necessity of increased services at home upon discharge. She will be driven home by her when ready. She will follow up with her PCP and discharge plan of care. CM will continue to follow. Patient/Family Education Needs: Discharge plan, limitations, follow up plan, Ask Me Three.
== END 2020-07-19 14:32 | disposition home or self-care (01) | DRG 331 ==
LOC: ER 07:44 → MS 08:30
PROVIDERS: Surgery; Admitting Provider Surgery; Emergency Provider Emergency Medicine; PCP Neuromusculoskeletal Medicine & OMM; Visit Provider Surgery
PROC: 0DTF0ZZ Resection of Right Large Intestine, Open Approach (ICD-10-PCS; CPT 44140; principal; 2020-07-16 09:00)
DX: C18.2 Malignant neoplasm of ascending colon (principal); R09.02 Hypoxemia; J45.909 Unspecified asthma, uncomplicated
CPT/HCPCS: 44140; 36415; 80048; 80053; 83690; 85027; 88305; 96361; 96374; 96375; 99223; 99232; 99233; 99238; 99285; J1650; NC; U0003; 74018; 74174; 81003; 82247; 82248; 82378; 83605; 83735; 85025; 85610; 85730; 88309; 88361; 93005; 93010; 94640; 94668; J0131; J0690; J0780; J1100; J1200; J1885; J2001; J2405; J2930; J3490; J7620

== ENCOUNTER → 2020-07-25 13:31 | Outpatient (BNVA) | payer MEDICARE, SELFPAY | PROVIDERS: PCP Neuromusculoskeletal Medicine & OMM; Referring Provider Neuromusculoskeletal Medicine & OMM; Visit Provider Surgery | DX: C18.2 Malignant neoplasm of ascending colon (principal); Z48.815 Encounter for surgical aftercare following surgery on the digestive system ==

== ENCOUNTER 2020-08-02 02:42 | Outpatient (CLI) | payer MEDICARE, SELFPAY ==
[2020-08-02 12:29] LABS: Abs Immature Grans 0.03 10^3/uL (0.0-0.06); Absolute Basophil Count 0.04 10^3/uL (0.0-0.2); Absolute Eosinophil Count 0.19 10^3/uL (0.0-0.7); Absolute Lymphocyte Count 1.33 10^3/uL (1.2-3.4); Absolute Monocyte Count 0.75 10^3/uL (0.1-0.8); Absolute Neutrophil Count 3.87 10^3/uL (1.2-6.7); Basophils % 0.6; Eosinophils % 3.1; HCT 36.7 % (36.0-46.0); Immature Grans % 0.5; Lymphocytes % 21.4; MCH 26.4 pg (27.0-33.0); MCV 88.2 fL (80-95); MPV 8.1 fL (8.0-11.0); Monocytes % 12.1; Neutrophils % 62.3; Nucleated RBC 0 %; RBC 4.16 10^6/uL (3.93-5.22); RDW 19.2 % (11.7-14.6); RDW-SD 61.5 fL; WBC 6.21 10^3/uL (4.4-10.8)
[2020-08-02 12:37] LABS: Platelet Count 807 10^3/uL (130-400)
[2020-08-02 12:42] LABS: ALT 21 U/L (14-59); AST 18 U/L (15-37); Albumin 3.2 g/dL (3.4-5.0); Alkaline Phosphatase 81 U/L (46-116); Anion Gap 8.7 mmol/L (3-11); BUN 14 mg/dL (7-18); Bilirubin, Total 0.1 mg/dL (0.2-1.0); CO2 26.3 mmol/L (21.0-32.0); CREATININE 1.12 mg/dL (0.55-1.02); Calcium 9.6 mg/dL (8.5-10.1); Chloride 103 mmol/L (98-107); Estimated GFR 48.09 (mL/min/1.73m2); Glucose 80 mg/dL (74-106); Potassium 3.2 mmol/L (3.5-5.1); Sodium 138 mmol/L (136-145); Total Protein 7.3 g/dL (6.4-8.2)
[2020-08-02 13:16] LABS: Ferritin 33 ng/mL (8-252)
== END 2020-08-02 03:02 ==
PROVIDERS: PCP Neuromusculoskeletal Medicine & OMM; Visit Provider Internal Medicine
DX: D50.9 Iron deficiency anemia, unspecified (principal)
CPT/HCPCS: 36415; 80053; 82728; 85025

== ENCOUNTER 2020-08-09 08:01 | Outpatient (CLI) | payer MEDICARE, SELFPAY ==
[2020-08-11 02:22] LABS: COVID-19 RT-PCR Result NEGATIVE (Negative)
== END 2020-08-09 08:21 ==
PROVIDERS: PCP Neuromusculoskeletal Medicine & OMM; Visit Provider Surgery
DX: Z11.59 Encounter for screening for other viral diseases (principal); Z01.818 Encounter for other preprocedural examination
CPT/HCPCS: U0003

== ENCOUNTER 2020-08-13 08:06 | Day surgery (SDC) | payer MEDICARE, SELFPAY ==
[2020-08-13 08:14] VITALS: BP 153/91; PULSE 91; RESP 20; TEMP 37; O2SAT 97
--- NOTE | 2020-08-13 08:48 | W.PM.OP ---
Date of service: 08/13/20 Time of Service: 10:35 Operative Note Operative Note DATE OF PROCEDURE: 08/13/20 PRE-OP DIAGNOSIS: Colon cancer POST-OP DIAGNOSIS: same PROCEDURE: Left subclavian Mediport SURGEON: Frances Severino ANESTHESIA: MAC and local Indications: This 70 year old woman presents for Mediport placement. She will soon begin chemotherapy for treatment of colon cancer. Procedure Description: She was placed supine on the operating table and her arms tucked. Her bilateral chest and neck were prepped and draped sterilely. She was placed in Trendelenberg position. The skin of the upper left chest was infiltrated with 1% lidocaine. The 18 gauge needle is used to access the left subclavian vein on the second pass. The wire threaded easily and was shown to be in the SVC. An incision was made extending inferior/medially from the wire and a pocket created on the chest wall. The catheter was attached to the PowerPort and then measured to the proper length and cut using fluoro. The peel away and dilator were passed over the wire and then the wire and dilator removed. The catheter was passed down the peel away which was then removed. The catheter was noted to cross the midline and go up the right IJ. Using fluoro, the catheter was withdrawn slightly and redirected into the SVC. The port aspirated and flushed easily at this point. The port was sutured to the chest wall with 3-0 Prolene. The subcutaneous tissue was closed with 3-0 Vicryl and the skin closed with a 4-0 Monocril suture. The port was accessed with the Beckham needed and aspirated. 3cc of heparinized saline were injected. The incision was dressed with steri strips and a gauze and Tegaderm. She tolerated the procedure well and was stable to recovery. Post procedure CXR reviewed and shows port/catheter in good position, no pneumothorax.
--- NOTE | 2020-08-13 08:49 | W.PM.DSUDISC ---
Discharge Plan Disposition Patient Disposition: HOME Condition: Good Discharge Details Reason For Visit: Mediport placement Attending Provider: Frances Severino Primary Care Provider: Shayan Headley Home Meds and New Rx's Prescriptions: Continued levothyroxine [Synthroid] 112 MCG tablet 112 mcg PO DAILY RF: 0 fluoxetine 40 MG capsule 80 mg PO DAILY RF: 0 prochlorperazine maleate 5 MG tablet 5 mg PO Q8H PRNRF: 0 pseudoephedrine HCl [Sudogest] 30 MG tablet 30 mg PO TID RF: 0 zolpidem 5 MG tablet 5 mg PO .QHS RF: 0 risperidone 0.5 MG tablet 0.5 mg PO TID RF: 0 ginkgo biloba 60 MG capsule 60 mg PO DAILY RF: 0 cyclobenzaprine 5 MG tablet 5 mg PO TID PRNRF: 0 calcium carbonate-vitamin D3 1 EACH tablet 1 tab PO DAILY RF: 0 methylphenidate HCl 20 mg tablet 20 mg PO TID PRNRF: 0 tramadol 50 mg Tablet 50 mg PO Q6H PRNRF: 0 acetaminophen 500 mg Tablet 1,000 mg PO QID PRNRF: 0 famotidine 20 mg Tablet 20 mg PO BID RF: 0 aspirin 81 mg Tablet 81 mg PO DAILY RF: 0 Discharge Instructions Additional Instructions: The top bandage can be removed in 2 days. The steri strips will usually stick for about a week. When the edges start to curl up, they can be removed. It is okay to shower tomorrow, the water can run over the bandage/steri strips Do not swim or soak in a tub for two weeks Call for any concerns including fever, increased pain, shortness of breath, incision redness or drainage. Keep lifting light for two weeks. Walking and stairs are fine. Do not drive if on narcotic pain meds or if limited by pain. May use Tylenol alternating with ibuprofen for pain control. Ice is also an option. The maximum dose for Tylenol is 4000 mg/day. May use ibuprofen 800 mg every 8 hours as needed. The port can be used immediately. If not being used, it needs to be flushed monthly. Activity:: Light for two weeks Remove Dressings/Wound Care:: 48 hours Shower/Bathe:: 24 hours Diet:: As Tolerated Discharge Orders Discharge Orders: Discharge Order (Routine); Ordered 08/13/20 Ordered By: Frances Severino DS: Diagnosis Discharge Diagnosis (1) Colon cancer, ascending: Status: Acute
[2020-08-13] MEDS: Lactated Ringers 1,000 ML 80 ML IV (09:00)
[2020-08-13] MEDS: CLINDAMYCIN 900 MG/50 ML BAG 100 MG IV (09:40)
[2020-08-13] MEDS: Normal Saline 20 ML VIAL (10:23)
[2020-08-13] MEDS: Heparin 500 UNITS/5 ML SYRINGE (10:23)
[2020-08-13] MEDS: Lidocaine 1% Multi-Dose 50 ML VIAL (10:24)
--- NOTE | 2020-08-13 10:34 | DI.RAD_ITS ---
EXAM: RF LINE PLACEMENT OR CLINICAL HISTORY: port placement in OR. TECHNIQUE: 2D and realtime digital imaging was performed. COMPARISON: No exams were available for comparison FINDINGS: Fluoroscopy was provided for guidance with placement of a port. Please see procedure note for details . Fluoro time: 59.3 seconds
--- NOTE | 2020-08-13 10:56 | DI.RAD_ITS ---
EXAM: XR PORTABLE CHEST AP CLINICAL HISTORY: Mediport placement TECHNIQUE: 2D digital imaging was performed. COMPARISON: No exams were available for comparison FINDINGS: LUNGS: Clear. No pleural abnormality seen. HEART: Normal. MEDIASTINUM: Normal. OTHER FINDINGS: Status post placement of a port over the left chest. The tip lies in the SVC. IMPRESSION: Satisfactory port placement. DATA REPOSITORY: RADIATION DOSE DELIVERED:
[2020-08-13 11:05] VITALS: BP 144/92; PULSE 79; RESP 20; TEMP 36.8; O2SAT 96
== END 2020-08-13 11:40 | disposition home or self-care (01) ==
PROVIDERS: PCP Neuromusculoskeletal Medicine & OMM; Visit Provider Surgery
PROC: (CPT 36561; principal; 2020-08-13 09:15)
DX: C18.2 Malignant neoplasm of ascending colon (principal); Z45.2 Encounter for adjustment and management of vascular access device
CPT/HCPCS: 36561; 77001; 71045; C1788; J2001

== ENCOUNTER → 2020-08-22 11:31 | Outpatient (BNVA) | payer MEDICARE, SELFPAY | PROVIDERS: PCP Neuromusculoskeletal Medicine & OMM; Referring Provider Neuromusculoskeletal Medicine & OMM; Visit Provider Surgery | DX: Z48.815 Encounter for surgical aftercare following surgery on the digestive system (principal); C18.2 Malignant neoplasm of ascending colon ==

== ENCOUNTER 2020-09-10 01:21 | Outpatient (RCR) | payer MEDICARE, SELFPAY ==
[2020-08-27 08:01] LABS: Abs Immature Grans 0.01 10^3/uL (0.0-0.06); Absolute Basophil Count 0.03 10^3/uL (0.0-0.2); Absolute Eosinophil Count 0.19 10^3/uL (0.0-0.7); Absolute Lymphocyte Count 0.81 10^3/uL (1.2-3.4); Absolute Monocyte Count 0.45 10^3/uL (0.1-0.8); Absolute Neutrophil Count 4.99 10^3/uL (1.2-6.7); Basophils % 0.5; Eosinophils % 2.9; HCT 34.2 % (36.0-46.0); HGB 10.6 g/dL (11.2-15.7); Immature Grans % 0.2; Lymphocytes % 12.5; MCH 27.2 pg (27.0-33.0); MCV 87.9 fL (80-95); MPV 8.5 fL (8.0-11.0); Monocytes % 6.9; Nucleated RBC 0 %; Platelet Count 563 10^3/uL (130-400); RBC 3.89 10^6/uL (3.93-5.22); RDW 15.7 % (11.7-14.6); RDW-SD 49.8 fL; WBC 6.48 10^3/uL (4.4-10.8)
[2020-08-27 08:14] LABS: ALT 20 U/L (14-59); AST 17 U/L (15-37); Albumin 3.2 g/dL (3.4-5.0); Alkaline Phosphatase 78 U/L (46-116); Anion Gap 10.8 mmol/L (3-11); BUN 20 mg/dL (7-18); Bilirubin, Total 0.2 mg/dL (0.2-1.0); CO2 25.2 mmol/L (21.0-32.0); CREATININE 1.07 mg/dL (0.55-1.02); Calcium 9.1 mg/dL (8.5-10.1); Chloride 103 mmol/L (98-107); Glucose 107 mg/dL (74-106); Potassium 3.6 mmol/L (3.5-5.1); Sodium 139 mmol/L (136-145); Total Protein 7.1 g/dL (6.4-8.2)
[2020-08-27] MEDS: Normal Saline Flush 10 ML SYR 30 ML IVP (08:19)
[2020-08-27 18:23] LABS: CEA 11.4 ng/mL (See Note)
[2020-09-10 08:30] LABS: Abs Immature Grans 0.01 10^3/uL (0.0-0.06); Absolute Basophil Count 0.02 10^3/uL (0.0-0.2); Absolute Eosinophil Count 0.09 10^3/uL (0.0-0.7); Absolute Lymphocyte Count 0.52 10^3/uL (1.2-3.4); Absolute Monocyte Count 0.26 10^3/uL (0.1-0.8); Absolute Neutrophil Count 1.29 10^3/uL (1.2-6.7); Basophils % 0.9; Eosinophils % 4.1; HCT 35.7 % (36.0-46.0); Immature Grans % 0.5; Lymphocytes % 23.7; MCH 27.1 pg (27.0-33.0); MCHC 30.8 % (32.0-36.0); MCV 87.9 fL (80-95); MPV 8.1 fL (8.0-11.0); Monocytes % 11.9; Neutrophils % 58.9; Nucleated RBC 0 %; Platelet Count 325 10^3/uL (130-400); RBC 4.06 10^6/uL (3.93-5.22); RDW 15.3 % (11.7-14.6); RDW-SD 48.6 fL; WBC 2.19 10^3/uL (4.4-10.8)
[2020-09-10 08:48] LABS: ALT 26 U/L (14-59); AST 20 U/L (15-37); Albumin 3.3 g/dL (3.4-5.0); Alkaline Phosphatase 98 U/L (46-116); Anion Gap 7.1 mmol/L (3-11); BUN 10 mg/dL (7-18); Bilirubin, Total 0.2 mg/dL (0.2-1.0); CO2 25.9 mmol/L (21.0-32.0); CREATININE 1.05 mg/dL (0.55-1.02); Calcium 9.3 mg/dL (8.5-10.1); Chloride 104 mmol/L (98-107); Estimated GFR 51.81 (mL/min/1.73m2); Glucose 109 mg/dL (74-106); Sodium 137 mmol/L (136-145); Total Protein 7.3 g/dL (6.4-8.2)
[2020-09-10 08:51] LABS: Potassium 2.9 mmol/L (3.5-5.1)
[2020-09-10] MEDS: Normal Saline Flush 10 ML SYR 30 ML IVP (09:23)
[2020-09-10 11:25] LABS: Magnesium 2.2 mg/dL (1.8-2.4)
[2020-09-10 20:01] LABS: CEA 8.2 ng/mL (See Note)
== END 2020-09-14 23:59 | disposition home or self-care (01) ==
LOC: INF 01:21
PROVIDERS: PCP Neuromusculoskeletal Medicine & OMM; Visit Provider Internal Medicine
DX: C18.2 Malignant neoplasm of ascending colon (principal); Z45.2 Encounter for adjustment and management of vascular access device; D50.9 Iron deficiency anemia, unspecified; T82.868A Thrombosis due to vascular prosthetic devices, implants and grafts, initial encounter
CPT/HCPCS: 36415; 36591; 76000; 80053; 96523; 82378; 83735; 85025; Q9967

== ENCOUNTER 2020-09-10 09:56 | Outpatient (CLI) | payer MEDICARE, SELFPAY ==
--- NOTE | 2020-09-10 11:54 | DI.RAD_ITS ---
EXAM: RF CATHETER PATENCY CHECK W CLINICAL HISTORY: EVAL PORT FOR PATENCY, S/P CATHFLO 90 MINUTES, NO BLOOD RETURN TECHNIQUE: COMPARISON: No exams were available for comparison FINDINGS: Fluoroscopy was utilized during catheter injection. Left subclavian catheter is in position. There was contrast opacification to the distal end of the catheter which lies in the SVC. There was marked resistance to injection and small quantity of contrast material is seen to extruded into thrombus at the distal end of the catheter. No free flow of contrast material. IMPRESSION: Thrombosed left subclavian catheter as described above. RADIATION DOSE DELIVERED: Total DLP
[2020-09-10] MEDS: Omnipaque 350 MG/ML 50 ML BTL IJ (12:42)
== END 2020-09-10 10:16 ==
PROVIDERS: PCP Neuromusculoskeletal Medicine & OMM; Visit Provider Internal Medicine
DX: T82.868A Thrombosis due to vascular prosthetic devices, implants and grafts, initial encounter (principal)
CPT/HCPCS: 76000; Q9967

== ENCOUNTER 2020-09-17 09:03 | Outpatient (CLI) | payer MEDICARE, SELFPAY ==
[2020-09-19 09:57] LABS: SARS-CoV-2 RNA Not Detected (NotDetected); SARS-CoV-2 RNA Source Nasal/Nares
== END 2020-09-17 09:23 ==
PROVIDERS: PCP Neuromusculoskeletal Medicine & OMM; Visit Provider Surgery
DX: Z11.59 Encounter for screening for other viral diseases (principal); Z01.818 Encounter for other preprocedural examination
CPT/HCPCS: U0003

== ENCOUNTER 2020-09-20 08:19 | Day surgery (SDC) | payer MEDICARE, SELFPAY ==
[2020-09-20 08:20] VITALS: BP 124/79; PULSE 95; RESP 20; TEMP 36.6; O2SAT 97
[2020-09-20] MEDS: Lactated Ringers 1,000 ML 80 ML IV (09:14)
--- NOTE | 2020-09-20 09:17 | W.PM.HP.N ---
Date of service: 09/20/20 Time of Service: : Assessment and Plan Assessment and plan (1) Colon cancer, ascending: Status: Acute Assessment and plan: I advised colonoscopy. The procedure was described including the risks of perforation with need for surgery or bleeding. Patient agrees to proceed. I offered replacement of the port via the same site. The risks of infection, bleeding discussed The patient agrees to proceed. History of Present Illness Narrative: This patient recently had right hemicolectomy for an obstructing colon cancer. She presents for her first colonoscopy. Her Mediport is also occluded despite attempts at restoring patency and needs replacement. Review of Systems All systems reviewed & are unremarkable except as noted in HPI and below PFSH Medical History Anxiety Asthma Colon cancer Depression GERD (gastroesophageal reflux disease) Hx of small bowel obstruction Hyperlipidemia Hypothyroidism Knee arthropathy PTSD (post-traumatic stress disorder) Thrombocythemia Surgical History (Updated 09/20/20 @ 09:19 by Frances Severino MD) History of cholecystectomy S/P right hemicolectomy S/P right rotator cuff repair Social History Smoking/Tobacco Use Status: Former Tobacco Use Quit Date: 11/15/65 Smoking risk assessment performed?: Yes Alcohol Intake: former Drug use: Occasionally Substance use type: marijuana Meds Home Medications and Allergies Home Medications Medication Instructions Recorded Confirmed Type levothyroxine [Synthroid] 112 mcg PO DAILY tab-cap 02/15/17 09/20/20 History calcium carbonate-vitamin D3 1 tab PO DAILY 05/02/17 09/20/20 History cyclobenzaprine 5 mg PO TID PRN 05/02/17 09/20/20 History fluoxetine 80 mg PO DAILY 05/02/17 09/20/20 History ginkgo biloba 60 mg PO DAILY 05/02/17 09/20/20 History prochlorperazine maleate 5 mg PO Q8H PRN 05/02/17 09/20/20 History pseudoephedrine HCl [Sudogest] 30 mg PO TID 05/02/17 09/20/20 History risperidone 0.5 mg PO TID 05/02/17 09/20/20 History zolpidem 5 mg PO .QHS 05/02/17 09/20/20 History methylphenidate HCl 20 mg PO TID PRN 07/15/20 09/20/20 History acetaminophen 1,000 mg PO QID PRN 08/09/20 09/20/20 History aspirin 81 mg PO DAILY 08/09/20 09/20/20 History famotidine 20 mg PO BID 08/09/20 09/20/20 History tramadol 50 mg PO Q6H PRN 08/09/20 09/20/20 History potassium chloride 20 meq PO DAILY 09/19/20 09/20/20 History Allergies Allergy/AdvReac Type Severity Reaction Status Date / Time niacin Allergy Unknown Skin Rash Unverified 09/20/20 08:24 codeine Allergy Verified 09/20/20 08:24 Penicillins AdvReac Severe Dizziness/L Unverified 09/20/20 08:24 ightheade Sulfa (Sulfonamide AdvReac Unknown Nausea Unverified 09/20/20 08:24 Antibiotics) cortisone AdvReac Psychosis Verified 09/20/20 08:24 meperidine [From Demerol] AdvReac Visual Verified 09/20/20 08:24 Disturbances NSAIDS (Non-Steroidal AdvReac Verified 09/20/20 08:24 Anti-Inflamma Exam Narrative Exam Narrative: Alert Lungs CTA Heart RRR Left subclavian Mediport present Abdomen soft, nontender Results Last Vital Signs Temp 97.9 F 09/20/20 08:20 Pulse 95 H 09/20/20 08:20 Resp 20 09/20/20 08:20 BP 124/79 09/20/20 08:20 Pulse Ox 97 09/20/20 08:20 COVID-19 Screening Have you,or household,traveled outside [place] in last 14 days?: No Had IN PERSON contact w/suspected or confirmed C-19 person: No
[2020-09-20] MEDS: Heparin 500 UNITS/5 ML SYRINGE (10:06)
[2020-09-20] MEDS: Bupivacaine 0.5% Pres-Free 30 ML VIAL (10:07)
[2020-09-20] MEDS: Lidocaine 1% Multi-Dose 50 ML VIAL (10:08)
[2020-09-20] MEDS: Normal Saline 50 ML (10:09)
--- NOTE | 2020-09-20 10:35 | DI.RAD_ITS ---
EXAM: RF LINE PLACEMENT OR CLINICAL HISTORY: PORT PLACEMENT TECHNIQUE: 2D and realtime digital imaging was performed. CONTRAST MATERIAL: Water soluble contrast was administered. COMPARISON: No exams were available for comparison FINDINGS: Fluoroscopy was provided for Dr. Severino during the performance of a intravenous port placement. Lucina dunham refer to the procedure report for complete details. Fluoro time: 258.5 seconds RADIATION DOSE DELIVERED:
--- NOTE | 2020-09-20 11:14 | W.PM.DSUDISC ---
Discharge Plan Disposition Patient Disposition: HOME Condition: Good Discharge Details Reason For Visit: Mediport replacement, colonoscopy Attending Provider: Frances Severino Primary Care Provider: Shayan Headley Home Meds and New Rx's Prescriptions: Continued levothyroxine [Synthroid] 112 MCG tablet 112 mcg PO DAILY RF: 0 fluoxetine 40 MG capsule 80 mg PO DAILY RF: 0 prochlorperazine maleate 5 MG tablet 5 mg PO Q8H PRNRF: 0 pseudoephedrine HCl [Sudogest] 30 MG tablet 30 mg PO TID RF: 0 zolpidem 5 MG tablet 5 mg PO .QHS RF: 0 risperidone 0.5 MG tablet 0.5 mg PO TID RF: 0 ginkgo biloba 60 MG capsule 60 mg PO DAILY RF: 0 cyclobenzaprine 5 MG tablet 5 mg PO TID PRNRF: 0 calcium carbonate-vitamin D3 1 EACH tablet 1 tab PO DAILY RF: 0 methylphenidate HCl 20 mg tablet 20 mg PO TID PRNRF: 0 tramadol 50 mg Tablet 50 mg PO Q6H PRNRF: 0 acetaminophen 500 mg Tablet 1,000 mg PO QID PRNRF: 0 famotidine 20 mg Tablet 20 mg PO BID RF: 0 aspirin 81 mg Tablet 81 mg PO DAILY RF: 0 potassium chloride 20 mEq tablet,ER particles/crystals 20 meq PO DAILY RF: 0 Discharge Instructions Additional Instructions: Findings: Your colonoscopy was normal. Follow up: Plan for colonoscopy in 1 year due to history of colon cancer. Please call if you develop: fevers >101.5 Nausea or Vomiting Abdominal pain that is not transient DAY SURGERY UNIT POST COLONOSCOPY INSTRUCTIONS 1. Because there will be medication in your system for the next 24 hours, you may feel a little sleepy. Your coordination will be affected. Therefore: a. Do not drive or operate dangerous equipment for 24 hours. b. Do not drink alcohol beverages for 24 hours (not even beer). c. Plan to go home and rest for the day. 2. Generally there are no restrictions on your activity after a day or so has gone by, but you may feel a bit fatigued for a few days. 3 After you arrive home you may have a light meal and return to a normal diet as you can tolerate it without feeling sick to your stomach. 4. After surgery, you may feel pain or discomfort. This should be only transient, but if it persists please contact your doctor. 5. If there are any questions regarding the findings of your procedure, please feel free to contact your doctor. 6. If you are unable to contact your doctor with a problem, contact the hospital at [phone]. 7. Continue all your regular medications unless directed otherwise. The bandage can be left until your oncology appointment. It is okay to shower tomorrow, the water can run over the dressing Do not swim or soak in a tub for two weeks Call for any concerns including fever, increased pain, incision redness or drainage. Keep lifting light for a week. Walking and stairs are fine. Do not drive if on narcotic pain meds or if limited by pain. May use Tylenol alternating with ibuprofen for pain control. Ice is also an option. The maximum dose for Tylenol is 4000 mg/day. May use ibuprofen 800 mg every 8 hours as needed. If concerned about constipation, you may use a stool softener or milk of magnesia. I understand the above instructions and have no questions. Signature of Patient or Responsible Adult Escort Date/Time Name of Responsible Adult Escort Signature of Nurse Date/Time Activity:: Light for a week Shower/Bathe:: 24 hours Diet:: As Tolerated Discharge Orders Discharge Orders: Discharge Order (Routine); Ordered 09/20/20 Ordered By: Frances Severino DS: Diagnosis Discharge Diagnosis (1) Colon cancer, ascending: Status: Acute
[2020-09-20 11:45] VITALS: BP 137/92; PULSE 76; RESP 16; TEMP 36.3; O2SAT 94
--- NOTE | 2020-09-22 18:51 | W.PM.OP ---
Operative Note Operative Note DATE OF PROCEDURE: 09/20/20 PRE-OP DIAGNOSIS: Colon cancer, Mediport occlusion POST-OP DIAGNOSIS: other (Normal colon s/p right hemicolectomy, Mediport occlusion) PROCEDURE: Replacement Mediport over a wire Colonoscopy SURGEON: Frances Severino ANESTHESIA: MAC and local Indications: This 70 year old woman presents for her first colonoscopy. She had a right hemicolectomy for an obstructing colon cancer in early July. She is currently having chemotherapy via a left subclavian Mediport which has thrombosed. Procedure Description: The patient was placed supine on the operating table and her left upper chest prepped and draped sterilely. The skin at the prior incision site was injected with local anesthetic and the prior incision opened. Subcutaneous tissue was divided and the Mediport identified. The catheter was clamped and cut from the port. A wire was threaded down the catheter under fluoroscopy. It was noted that the catheter was over in the right subclavian vein and not in the superior vena cava. I lucius back the catheter and had some difficulty getting the wire to go down into the superior vena cava. Eventually it did so after several attempts. The catheter was then completely removed as was the old port. The peel-away and dilator were passed over the wire and then the new catheter was threaded in to the proper length using fluoro. The wire was removed and the catheter affixed to the new port. The port flushed and aspirated easily at this point. The port was sutured to the chest wall with 2-0 Prolene stitches then the subcutaneous tissue closed with 3-0 Vicryl sutures and the skin closed with a running 4 Monocryl subcuticular stitch. The port was accessed and aspirated and was then flushed with 5 cc of heparinized saline. The wound was dressed sterilely. The patient was placed in the left [place] position. Propofol was titrated to sedation. Digital rectal examination revealed no abnormalities. The scope was advanced to the ileocolic anastomosis without difficulty. The prep was good. The scope was slowly withdrawn over the course of greater than 6 minutes with no abnormalities seen in the ascending, transverse, descending, sigmoid colon or rectum including on retroflexed view. Plan for follow up colonoscopy in one year.
== END 2020-09-20 12:33 | disposition home or self-care (01) ==
PROVIDERS: PCP Neuromusculoskeletal Medicine & OMM; Visit Provider Surgery
PROC: 0DJD8ZZ Inspection of Lower Intestinal Tract, Via Natural or Artificial Opening Endoscopic (ICD-10-PCS; CPT 45378; principal; 2020-09-20 09:45)
PROC: (CPT 36590; 2020-09-20 09:45)
PROC: (CPT 36582; 2020-09-20 09:45)
DX: C18.2 Malignant neoplasm of ascending colon (principal); Z98.0 Intestinal bypass and anastomosis status; T82.898A Other specified complication of vascular prosthetic devices, implants and grafts, initial encounter; K21.9 Gastro-esophageal reflux disease without esophagitis; E78.5 Hyperlipidemia, unspecified; E03.9 Hypothyroidism, unspecified
CPT/HCPCS: 36582; 45378; 77001; NC; C1788; J2001; J2250; J3010

== ENCOUNTER 2020-10-09 01:28 | Outpatient (RCR) | payer MEDICARE, SELFPAY ==
[2020-09-24 08:24] LABS: Abs Immature Grans 0.04 10^3/uL (0.0-0.06); Absolute Basophil Count 0.05 10^3/uL (0.0-0.2); Absolute Eosinophil Count 0.25 10^3/uL (0.0-0.7); Absolute Lymphocyte Count 1.29 10^3/uL (1.2-3.4); Absolute Monocyte Count 0.79 10^3/uL (0.1-0.8); Absolute Neutrophil Count 5.81 10^3/uL (1.2-6.7); Basophils % 0.6; HCT 37.9 % (36.0-46.0); HGB 11.8 g/dL (11.2-15.7); Immature Grans % 0.5; Lymphocytes % 15.7; MCH 27.4 pg (27.0-33.0); MCHC 31.1 % (32.0-36.0); MCV 88.1 fL (80-95); MPV 8.8 fL (8.0-11.0); Monocytes % 9.6; Neutrophils % 70.6; Nucleated RBC 0 %; Platelet Count 349 10^3/uL (130-400); RDW-SD 51.3 fL; WBC 8.23 10^3/uL (4.4-10.8)
[2020-09-24] MEDS: Normal Saline Flush 10 ML SYR 30 ML IVP (08:30)
[2020-09-24 08:33] LABS: ALT 23 U/L (14-59); AST 23 U/L (15-37); Albumin 3.4 g/dL (3.4-5.0); Alkaline Phosphatase 110 U/L (46-116); Anion Gap 12.1 mmol/L (3-11); BUN 19 mg/dL (7-18); Bilirubin, Total 0.2 mg/dL (0.2-1.0); CO2 23.9 mmol/L (21.0-32.0); Calcium 9.4 mg/dL (8.5-10.1); Chloride 103 mmol/L (98-107); Estimated GFR 40.49 (mL/min/1.73m2); Glucose 115 mg/dL (74-106); Potassium 3.8 mmol/L (3.5-5.1); Sodium 139 mmol/L (136-145); Total Protein 7.6 g/dL (6.4-8.2)
[2020-09-25 14:37] LABS: CEA 5.2 ng/ml
[2020-10-09] MEDS: Normal Saline Flush 10 ML SYR IVP (08:10)
[2020-10-09 08:20] LABS: Absolute Basophil Count 0.04 10^3/uL (0.0-0.2); Absolute Eosinophil Count 0.09 10^3/uL (0.0-0.7); Absolute Lymphocyte Count 1.26 10^3/uL (1.2-3.4); Absolute Monocyte Count 0.86 10^3/uL (0.1-0.8); Basophils % 0.4; Eosinophils % 0.8; HCT 37.9 % (36.0-46.0); HGB 11.7 g/dL (11.2-15.7); Immature Grans % 4.5; Lymphocytes % 11.4; MCH 27.3 pg (27.0-33.0); MCHC 30.9 % (32.0-36.0); MCV 88.6 fL (80-95); MPV 8.5 fL (8.0-11.0); Monocytes % 7.8; Neutrophils % 75.1; Nucleated RBC 0 %; Platelet Count 351 10^3/uL (130-400); RBC 4.28 10^6/uL (3.93-5.22); RDW 17.6 % (11.7-14.6); RDW-SD 55.3 fL; WBC 11.05 10^3/uL (4.4-10.8)
[2020-10-09 08:44] LABS: ALT 22 U/L (14-59); AST 20 U/L (15-37); Albumin 3.4 g/dL (3.4-5.0); Alkaline Phosphatase 127 U/L (46-116); Anion Gap 7.1 mmol/L (3-11); BUN 18 mg/dL (7-18); Bilirubin, Total 0.1 mg/dL (0.2-1.0); CO2 24.9 mmol/L (21.0-32.0); CREATININE 1.29 mg/dL (0.55-1.02); Calcium 9.2 mg/dL (8.5-10.1); Chloride 103 mmol/L (98-107); Estimated GFR 40.86 (mL/min/1.73m2); Ferritin 68 ng/mL (8-252); Glucose 102 mg/dL (74-106); Potassium 4.5 mmol/L (3.5-5.1); Sodium 135 mmol/L (136-145); Total Protein 7.6 g/dL (6.4-8.2)
[2020-10-09 19:52] LABS: CEA 4.7 ng/mL (See Note)
== END 2020-10-14 23:59 | disposition home or self-care (01) ==
LOC: INF 01:28
PROVIDERS: PCP Neuromusculoskeletal Medicine & OMM; Visit Provider Internal Medicine
DX: C18.2 Malignant neoplasm of ascending colon (principal); Z45.2 Encounter for adjustment and management of vascular access device; D50.9 Iron deficiency anemia, unspecified
CPT/HCPCS: 36591; 80053; 82378; 82728; 85025

== ENCOUNTER 2020-10-29 03:02 | Outpatient (CLI) | payer MEDICARE, SELFPAY ==
[2020-10-29 11:10] LABS: Abs Immature Grans 0.08 10^3/uL (0.0-0.06); Absolute Basophil Count 0.03 10^3/uL (0.0-0.2); Absolute Eosinophil Count 0.02 10^3/uL (0.0-0.7); Absolute Lymphocyte Count 1.07 10^3/uL (1.2-3.4); Absolute Monocyte Count 0.95 10^3/uL (0.1-0.8); Absolute Neutrophil Count 8.32 10^3/uL (1.2-6.7); Basophils % 0.3; Eosinophils % 0.2; HCT 39.6 % (36.0-46.0); HGB 12.2 g/dL (11.2-15.7); Immature Grans % 0.8; Lymphocytes % 10.2; MCH 28.2 pg (27.0-33.0); MCHC 30.8 % (32.0-36.0); MCV 91.5 fL (80-95); MPV 8.5 fL (8.0-11.0); Monocytes % 9.1; Neutrophils % 79.4; Nucleated RBC 0 %; Platelet Count 409 10^3/uL (130-400); RBC 4.33 10^6/uL (3.93-5.22); RDW 20.9 % (11.7-14.6); RDW-SD 68.4 fL; WBC 10.47 10^3/uL (4.4-10.8)
[2020-10-29 11:34] LABS: ALT 28 U/L (14-59); AST 22 U/L (15-37); Albumin 3.6 g/dL (3.4-5.0); Alkaline Phosphatase 136 U/L (46-116); BUN 21 mg/dL (7-18); Bilirubin, Total 0.4 mg/dL (0.2-1.0); CREATININE 1.38 mg/dL (0.55-1.02); Calcium 9.5 mg/dL (8.5-10.1); Chloride 102 mmol/L (98-107); Ferritin 93 ng/mL (8-252); Glucose 95 mg/dL (74-106); Potassium 3.7 mmol/L (3.5-5.1); Sodium 138 mmol/L (136-145); Total Protein 7.9 g/dL (6.4-8.2)
[2020-10-29 11:36] LABS: Anisocytosis 2+; Diff Comment RBC Morph Reviewed; Polychromasia Present
[2020-10-29 11:37] LABS: Poikilocytes 1+
== END 2020-10-29 03:22 ==
PROVIDERS: PCP Neuromusculoskeletal Medicine & OMM; Visit Provider Internal Medicine
DX: D50.9 Iron deficiency anemia, unspecified (principal)
CPT/HCPCS: 36415; 80053; 82728; 85025

== ENCOUNTER 2020-11-12 02:48 | Outpatient (RCR) | payer MEDICARE, SELFPAY ==
[2020-11-12] MEDS: Normal Saline Flush 10 ML SYR IVP (09:30)
[2020-11-12 10:08] LABS: Abs Immature Grans 0.03 10^3/uL (0.0-0.06); Absolute Basophil Count 0.06 10^3/uL (0.0-0.2); Absolute Eosinophil Count 0.13 10^3/uL (0.0-0.7); Absolute Lymphocyte Count 0.94 10^3/uL (1.2-3.4); Absolute Monocyte Count 0.61 10^3/uL (0.1-0.8); Absolute Neutrophil Count 7.15 10^3/uL (1.2-6.7); Basophils % 0.7; Eosinophils % 1.5; HCT 35.1 % (36.0-46.0); HGB 11.1 g/dL (11.2-15.7); Immature Grans % 0.3; Lymphocytes % 10.5; MCH 29.1 pg (27.0-33.0); MCHC 31.6 % (32.0-36.0); MCV 92.1 fL (80-95); MPV 8.6 fL (8.0-11.0); Monocytes % 6.8; Neutrophils % 80.2; Nucleated RBC 0 %; Platelet Count 351 10^3/uL (130-400); RBC 3.81 10^6/uL (3.93-5.22); RDW 19.9 % (11.7-14.6); RDW-SD 67.5 fL; WBC 8.92 10^3/uL (4.4-10.8)
[2020-11-12 10:35] LABS: ALT 22 U/L (14-59); AST 20 U/L (15-37); Albumin 3.4 g/dL (3.4-5.0); Alkaline Phosphatase 95 U/L (46-116); Anion Gap 8.1 mmol/L (3-11); BUN 16 mg/dL (7-18); Bilirubin, Total 0.3 mg/dL (0.2-1.0); CO2 23.9 mmol/L (21.0-32.0); CREATININE 1.17 mg/dL (0.55-1.02); Calcium 8.8 mg/dL (8.5-10.1); Chloride 105 mmol/L (98-107); Estimated GFR 45.73 (mL/min/1.73m2); Ferritin 51 ng/mL (8-252); Glucose 101 mg/dL (74-106); Magnesium 2.3 mg/dL (1.8-2.4); Potassium 4.1 mmol/L (3.5-5.1); Sodium 137 mmol/L (136-145); Total Protein 7.4 g/dL (6.4-8.2)
[2020-11-12 17:30] LABS: CEA 3.1 ng/mL (See Note)
== END 2020-11-14 23:59 | disposition home or self-care (01) ==
LOC: INF 02:48
PROVIDERS: PCP Neuromusculoskeletal Medicine & OMM; Visit Provider Internal Medicine
DX: C18.2 Malignant neoplasm of ascending colon (principal); Z45.2 Encounter for adjustment and management of vascular access device; K12.30 Oral mucositis (ulcerative), unspecified; R11.2 Nausea with vomiting, unspecified; D50.9 Iron deficiency anemia, unspecified
CPT/HCPCS: 36415; 36591; 80053; 82378; 82728; 83735; 85025

== ENCOUNTER 2020-12-10 02:56 | Outpatient (RCR) | payer MEDICARE, SELFPAY ==
[2020-11-26] MEDS: Normal Saline Flush 10 ML SYR IVP (09:42)
[2020-11-26 09:50] LABS: Abs Immature Grans 0.06 10^3/uL (0.0-0.06); Absolute Basophil Count 0.04 10^3/uL (0.0-0.2); Absolute Eosinophil Count 0.12 10^3/uL (0.0-0.7); Absolute Lymphocyte Count 0.99 10^3/uL (1.2-3.4); Absolute Monocyte Count 0.82 10^3/uL (0.1-0.8); Absolute Neutrophil Count 7.91 10^3/uL (1.2-6.7); Basophils % 0.4; Eosinophils % 1.2; HCT 36.1 % (36.0-46.0); HGB 11.3 g/dL (11.2-15.7); Immature Grans % 0.6; MCH 29.5 pg (27.0-33.0); MCHC 31.3 % (32.0-36.0); MCV 94.3 fL (80-95); MPV 8.5 fL (8.0-11.0); Monocytes % 8.2; Neutrophils % 79.6; Nucleated RBC 0 %; Platelet Count 325 10^3/uL (130-400); RBC 3.83 10^6/uL (3.93-5.22); RDW 19.5 % (11.7-14.6); RDW-SD 66.9 fL; WBC 9.94 10^3/uL (4.4-10.8)
[2020-11-26 10:16] LABS: ALT 26 U/L (14-59); AST 23 U/L (15-37); Albumin 3.4 g/dL (3.4-5.0); Alkaline Phosphatase 145 U/L (46-116); Anion Gap 8.3 mmol/L (3-11); BUN 18 mg/dL (7-18); Bilirubin, Total 0.2 mg/dL (0.2-1.0); CO2 27.7 mmol/L (21.0-32.0); CREATININE 1.05 mg/dL (0.55-1.02); Chloride 100 mmol/L (98-107); Estimated GFR 51.81 (mL/min/1.73m2); Ferritin 58 ng/mL (8-252); Glucose 98 mg/dL (74-106); Magnesium 2.2 mg/dL (1.8-2.4); Potassium 4.3 mmol/L (3.5-5.1); Sodium 136 mmol/L (136-145); Total Protein 7.4 g/dL (6.4-8.2)
[2020-11-26 17:58] LABS: CEA 2.5 ng/mL (See Note)
[2020-12-10] MEDS: Normal Saline Flush 10 ML SYR IVP (07:44)
[2020-12-10 07:58] LABS: Abs Immature Grans 0.15 10^3/uL (0.0-0.06); Absolute Basophil Count 0.05 10^3/uL (0.0-0.2); Absolute Eosinophil Count 0.09 10^3/uL (0.0-0.7); Absolute Lymphocyte Count 1.14 10^3/uL (1.2-3.4); Absolute Monocyte Count 1.04 10^3/uL (0.1-0.8); Absolute Neutrophil Count 8.45 10^3/uL (1.2-6.7); Basophils % 0.5; Eosinophils % 0.8; HCT 37.1 % (36.0-46.0); HGB 11.7 g/dL (11.2-15.7); Immature Grans % 1.4; Lymphocytes % 10.4; MCH 30.3 pg (27.0-33.0); MCHC 31.5 % (32.0-36.0); MCV 96.1 fL (80-95); MPV 8.8 fL (8.0-11.0); Monocytes % 9.5; Neutrophils % 77.4; Nucleated RBC 0 %; Platelet Count 346 10^3/uL (130-400); RBC 3.86 10^6/uL (3.93-5.22); RDW 20.2 % (11.7-14.6); RDW-SD 71.5 fL; WBC 10.92 10^3/uL (4.4-10.8)
[2020-12-10 08:24] LABS: ALT 44 U/L (14-59); AST 31 U/L (15-37); Albumin 3.4 g/dL (3.4-5.0); Alkaline Phosphatase 162 U/L (46-116); Anion Gap 10.3 mmol/L (3-11); BUN 18 mg/dL (7-18); Bilirubin, Total 0.2 mg/dL (0.2-1.0); CO2 22.7 mmol/L (21.0-32.0); CREATININE 1.58 mg/dL (0.55-1.02); Calcium 9.3 mg/dL (8.5-10.1); Chloride 101 mmol/L (98-107); Estimated GFR 32.33 (mL/min/1.73m2); Glucose 128 mg/dL (74-106); Magnesium 1.9 mg/dL (1.8-2.4); Potassium 3.7 mmol/L (3.5-5.1); Sodium 134 mmol/L (136-145); Total Protein 7.5 g/dL (6.4-8.2)
== END 2020-12-15 23:59 | disposition home or self-care (01) ==
LOC: INF 02:56
PROVIDERS: PCP Neuromusculoskeletal Medicine & OMM; Visit Provider Internal Medicine
DX: C18.2 Malignant neoplasm of ascending colon (principal); Z45.2 Encounter for adjustment and management of vascular access device; K12.30 Oral mucositis (ulcerative), unspecified; R11.2 Nausea with vomiting, unspecified; D50.9 Iron deficiency anemia, unspecified
CPT/HCPCS: 36591; 80053; 82378; 82728; 83735; 85025

== ENCOUNTER 2021-01-07 01:50 | Outpatient (RCR) | payer MEDICARE, SELFPAY ==
[2020-12-24] MEDS: Normal Saline Flush 10 ML SYR IVP (07:30)
[2020-12-24 07:39] LABS: Abs Immature Grans 0.34 10^3/uL (0.0-0.06); Absolute Basophil Count 0.05 10^3/uL (0.0-0.2); Absolute Eosinophil Count 0.12 10^3/uL (0.0-0.7); Absolute Monocyte Count 1.04 10^3/uL (0.1-0.8); Absolute Neutrophil Count 8.98 10^3/uL (1.2-6.7); Basophils % 0.4; HCT 36.7 % (36.0-46.0); HGB 11.5 g/dL (11.2-15.7); Immature Grans % 2.9; Lymphocytes % 10.2; MCH 30.7 pg (27.0-33.0); MCHC 31.3 % (32.0-36.0); MCV 97.9 fL (80-95); Monocytes % 8.9; Neutrophils % 76.6; Nucleated RBC 0 %; Platelet Count 256 10^3/uL (130-400); RBC 3.75 10^6/uL (3.93-5.22); RDW 19.9 % (11.7-14.6); RDW-SD 71.6 fL; WBC 11.72 10^3/uL (4.4-10.8)
[2020-12-24 07:52] LABS: ALT 33 U/L (14-59); AST 27 U/L (15-37); Albumin 3.3 g/dL (3.4-5.0); Alkaline Phosphatase 186 U/L (46-116); Anion Gap 10.4 mmol/L (3-11); BUN 18 mg/dL (7-18); Bilirubin, Total 0.2 mg/dL (0.2-1.0); CO2 23.6 mmol/L (21.0-32.0); CREATININE 1.3 mg/dL (0.55-1.02); Calcium 9.2 mg/dL (8.5-10.1); Chloride 102 mmol/L (98-107); Estimated GFR 40.49 (mL/min/1.73m2); Glucose 107 mg/dL (74-106); Potassium 4.5 mmol/L (3.5-5.1); Sodium 136 mmol/L (136-145); Total Protein 7.5 g/dL (6.4-8.2)
[2021-01-07] MEDS: Normal Saline Flush 10 ML SYR IVP (07:55)
[2021-01-07 08:03] LABS: Abs Immature Grans 0.18 10^3/uL (0.0-0.06); Absolute Basophil Count 0.03 10^3/uL (0.0-0.2); Absolute Eosinophil Count 0.07 10^3/uL (0.0-0.7); Absolute Lymphocyte Count 1.02 10^3/uL (1.2-3.4); Absolute Monocyte Count 1.07 10^3/uL (0.1-0.8); Absolute Neutrophil Count 8.15 10^3/uL (1.2-6.7); Basophils % 0.3; Eosinophils % 0.7; HCT 34.4 % (36.0-46.0); Immature Grans % 1.7; Lymphocytes % 9.7; MCH 31.8 pg (27.0-33.0); MCV 99.4 fL (80-95); Monocytes % 10.2; Neutrophils % 77.4; Nucleated RBC 0 %; Platelet Count 218 10^3/uL (130-400); RBC 3.46 10^6/uL (3.93-5.22); RDW 19.7 % (11.7-14.6); WBC 10.52 10^3/uL (4.4-10.8)
[2021-01-07 08:23] LABS: ALT 38 U/L (14-59); AST 28 U/L (15-37); Albumin 3.3 g/dL (3.4-5.0); Alkaline Phosphatase 161 U/L (46-116); Anion Gap 8.5 mmol/L (3-11); BUN 16 mg/dL (7-18); Bilirubin, Total 0.2 mg/dL (0.2-1.0); CO2 25.5 mmol/L (21.0-32.0); CREATININE 1.2 mg/dL (0.55-1.02); Calcium 9.4 mg/dL (8.5-10.1); Chloride 103 mmol/L (98-107); Estimated GFR 44.41 (mL/min/1.73m2); Glucose 103 mg/dL (74-106); Magnesium 2.2 mg/dL (1.8-2.4); Potassium 3.8 mmol/L (3.5-5.1); Sodium 137 mmol/L (136-145); Total Protein 7.2 g/dL (6.4-8.2)
[2021-01-07 08:51] LABS: Ferritin 109 ng/mL (8-252)
[2021-01-07 18:08] LABS: CEA 1.6 ng/mL (See Note)
== END 2021-01-12 23:59 | disposition home or self-care (01) ==
LOC: INF 01:50
PROVIDERS: PCP Neuromusculoskeletal Medicine & OMM; Visit Provider Internal Medicine
DX: C18.2 Malignant neoplasm of ascending colon (principal); Z45.2 Encounter for adjustment and management of vascular access device; K12.30 Oral mucositis (ulcerative), unspecified; R11.2 Nausea with vomiting, unspecified; D50.9 Iron deficiency anemia, unspecified
CPT/HCPCS: 36591; 80053; 82378; 82728; 83735; 85025

== ENCOUNTER 2021-02-04 02:22 | Outpatient (RCR) | payer MEDICARE, SELFPAY ==
[2021-01-21] MEDS: Normal Saline Flush 10 ML SYR IVP (12:14)
[2021-01-21 13:39] LABS: Absolute Basophil Count 0.03 10^3/uL (0.0-0.2); Absolute Eosinophil Count 0.05 10^3/uL (0.0-0.7); Absolute Lymphocyte Count 0.87 10^3/uL (1.2-3.4); Absolute Monocyte Count 1.01 10^3/uL (0.1-0.8); Basophils % 0.4; Eosinophils % 0.6; HCT 35.3 % (36.0-46.0); HGB 11.5 g/dL (11.2-15.7); Immature Grans % 1.3; Lymphocytes % 10.5; MCH 32.3 pg (27.0-33.0); MCHC 32.6 % (32.0-36.0); MCV 99.2 fL (80-95); MPV 8.8 fL (8.0-11.0); Monocytes % 12.2; Platelet Count 202 10^3/uL (130-400); RBC 3.56 10^6/uL (3.93-5.22); RDW 18.6 % (11.7-14.6); RDW-SD 68.7 fL; WBC 8.25 10^3/uL (4.4-10.8)
[2021-01-21 13:40] LABS: Abs Immature Grans 0.11 10^3/uL (0.0-0.06); Absolute Neutrophil Count 6.18 10^3/uL (1.2-6.7); Nucleated RBC 0 %
[2021-01-21 13:41] LABS: Albumin 3.3 g/dL (3.4-5.0); Alkaline Phosphatase 162 U/L (46-116); Anion Gap 10.1 mmol/L (3-11); BUN 22 mg/dL (7-18); Bilirubin, Total 0.3 mg/dL (0.2-1.0); CO2 24.9 mmol/L (21.0-32.0); CREATININE 1.2 mg/dL (0.55-1.02); Calcium 9.1 mg/dL (8.5-10.1); Chloride 102 mmol/L (98-107); Estimated GFR 44.41 (mL/min/1.73m2); Glucose 100 mg/dL (74-106); Potassium 4.4 mmol/L (3.5-5.1); Sodium 137 mmol/L (136-145); Total Protein 7.4 g/dL (6.4-8.2)
[2021-01-21 13:42] LABS: ALT 51 U/L (14-59); AST 36 U/L (15-37); Ferritin 97 ng/mL (8-252); Magnesium 2.1 mg/dL (1.8-2.4)
[2021-01-21 23:08] LABS: CEA 1.7 ng/mL (See Note)
[2021-02-04] MEDS: Normal Saline Flush 10 ML SYR IVP (08:20)
[2021-02-04 08:36] LABS: Abs Immature Grans 0.12 10^3/uL (0.0-0.06); Absolute Basophil Count 0.03 10^3/uL (0.0-0.2); Absolute Eosinophil Count 0.07 10^3/uL (0.0-0.7); Absolute Lymphocyte Count 1.03 10^3/uL (1.2-3.4); Absolute Monocyte Count 0.97 10^3/uL (0.1-0.8); Absolute Neutrophil Count 7.71 10^3/uL (1.2-6.7); Basophils % 0.3; Eosinophils % 0.7; HCT 34.8 % (36.0-46.0); HGB 11.2 g/dL (11.2-15.7); Immature Grans % 1.2; Lymphocytes % 10.4; MCH 33.1 pg (27.0-33.0); MCHC 32.2 % (32.0-36.0); MPV 8.8 fL (8.0-11.0); Monocytes % 9.8; Neutrophils % 77.6; Nucleated RBC 0 %; Platelet Count 248 10^3/uL (130-400); RBC 3.38 10^6/uL (3.93-5.22); RDW 18.5 % (11.7-14.6); RDW-SD 70.3 fL; WBC 9.93 10^3/uL (4.4-10.8)
[2021-02-04 09:21] LABS: ALT 27 U/L (14-59); AST 20 U/L (15-37); Albumin 3.3 g/dL (3.4-5.0); Alkaline Phosphatase 172 U/L (46-116); Anion Gap 9.6 mmol/L (3-11); BUN 17 mg/dL (7-18); Bilirubin, Total 0.2 mg/dL (0.2-1.0); CO2 25.4 mmol/L (21.0-32.0); CREATININE 1.3 mg/dL (0.55-1.02); Calcium 9.4 mg/dL (8.5-10.1); Chloride 103 mmol/L (98-107); Estimated GFR 40.49 (mL/min/1.73m2); Ferritin 74 ng/mL (8-252); Glucose 99 mg/dL (74-106); Potassium 4.5 mmol/L (3.5-5.1); Sodium 138 mmol/L (136-145); Total Protein 7.4 g/dL (6.4-8.2)
[2021-02-04 18:30] LABS: CEA 1.5 ng/mL (See Note)
== END 2021-02-12 23:59 | disposition home or self-care (01) ==
LOC: INF 02:22
PROVIDERS: PCP Neuromusculoskeletal Medicine & OMM; Visit Provider Internal Medicine
DX: C18.2 Malignant neoplasm of ascending colon (principal); Z45.2 Encounter for adjustment and management of vascular access device; D50.9 Iron deficiency anemia, unspecified; K12.30 Oral mucositis (ulcerative), unspecified; R11.2 Nausea with vomiting, unspecified
CPT/HCPCS: 36591; 80053; 82378; 82728; 83735; 85025

== ENCOUNTER 2021-03-04 01:58 | Outpatient (RCR) | payer MEDICARE, SELFPAY ==
[2021-02-18] MEDS: Normal Saline Flush 10 ML SYR IVP (09:49)
[2021-02-18 09:57] LABS: Abs Immature Grans 0.09 10^3/uL (0.0-0.06); Absolute Basophil Count 0.04 10^3/uL (0.0-0.2); Absolute Eosinophil Count 0.12 10^3/uL (0.0-0.7); Absolute Lymphocyte Count 1.03 10^3/uL (1.2-3.4); Absolute Monocyte Count 1.21 10^3/uL (0.1-0.8); Absolute Neutrophil Count 7.62 10^3/uL (1.2-6.7); Basophils % 0.4; Eosinophils % 1.2; HCT 35.8 % (36.0-46.0); HGB 11.4 g/dL (11.2-15.7); Immature Grans % 0.9; Lymphocytes % 10.2; MCH 33.3 pg (27.0-33.0); MCHC 31.8 % (32.0-36.0); MCV 104.7 fL (80-95); MPV 8.8 fL (8.0-11.0); Neutrophils % 75.3; Nucleated RBC 0 %; Platelet Count 318 10^3/uL (130-400); RBC 3.42 10^6/uL (3.93-5.22); RDW 18.4 % (11.7-14.6); RDW-SD 70.9 fL; WBC 10.11 10^3/uL (4.4-10.8)
[2021-02-18 10:53] LABS: ALT 27 U/L (14-59); AST 20 U/L (15-37); Albumin 3.3 g/dL (3.4-5.0); Alkaline Phosphatase 155 U/L (46-116); Anion Gap 10.9 mmol/L (3-11); BUN 22 mg/dL (7-18); Bilirubin, Total 0.2 mg/dL (0.2-1.0); CO2 25.1 mmol/L (21.0-32.0); CREATININE 1.3 mg/dL (0.55-1.02); Calcium 9.5 mg/dL (8.5-10.1); Chloride 103 mmol/L (98-107); Estimated GFR 40.49 (mL/min/1.73m2); Ferritin 65 ng/mL (8-252); Glucose 101 mg/dL (74-106); Magnesium 2.2 mg/dL (1.8-2.4); Potassium 4.6 mmol/L (3.5-5.1); Sodium 139 mmol/L (136-145); Total Protein 7.3 g/dL (6.4-8.2)
[2021-02-18 10:54] LABS: Folate > 20.0 ng/mL (8.6-20.0); Vitamin B12 > 2000 pg/mL (193-986)
[2021-02-18 17:48] LABS: CEA 1.5 ng/mL (See Note)
[2021-03-04] MEDS: Normal Saline Flush 10 ML SYR IVP (08:13)
[2021-03-04 08:22] LABS: Abs Immature Grans 0.12 10^3/uL (0.0-0.06); Absolute Basophil Count 0.04 10^3/uL (0.0-0.2); Absolute Eosinophil Count 0.17 10^3/uL (0.0-0.7); Absolute Lymphocyte Count 1.05 10^3/uL (1.2-3.4); Absolute Monocyte Count 0.87 10^3/uL (0.1-0.8); Absolute Neutrophil Count 6.02 10^3/uL (1.2-6.7); Basophils % 0.5; Eosinophils % 2.1; HCT 33.8 % (36.0-46.0); HGB 10.8 g/dL (11.2-15.7); Immature Grans % 1.5; Lymphocytes % 12.7; MCH 33.6 pg (27.0-33.0); MCV 105.3 fL (80-95); MPV 8.3 fL (8.0-11.0); Monocytes % 10.5; Neutrophils % 72.7; Nucleated RBC 0 %; Platelet Count 249 10^3/uL (130-400); RBC 3.21 10^6/uL (3.93-5.22); WBC 8.27 10^3/uL (4.4-10.8)
[2021-03-04 08:49] LABS: ALT 27 U/L (14-59); AST 18 U/L (15-37); Albumin 3.3 g/dL (3.4-5.0); Alkaline Phosphatase 147 U/L (46-116); Anion Gap 7.3 mmol/L (3-11); BUN 20 mg/dL (7-18); Bilirubin, Total 0.2 mg/dL (0.2-1.0); CO2 26.7 mmol/L (21.0-32.0); CREATININE 1.1 mg/dL (0.55-1.02); Calcium 9.2 mg/dL (8.5-10.1); Chloride 105 mmol/L (98-107); Ferritin 66 ng/mL (8-252); Glucose 95 mg/dL (74-106); Magnesium 2.2 mg/dL (1.8-2.4); Potassium 4.4 mmol/L (3.5-5.1); Sodium 139 mmol/L (136-145); Total Protein 7.2 g/dL (6.4-8.2)
[2021-03-04 17:53] LABS: CEA 1.5 ng/mL (See Note)
== END 2021-03-14 23:59 | disposition home or self-care (01) ==
LOC: INF 01:58
PROVIDERS: PCP Neuromusculoskeletal Medicine & OMM; Visit Provider Internal Medicine
DX: K12.30 Oral mucositis (ulcerative), unspecified (principal); R11.2 Nausea with vomiting, unspecified; C18.2 Malignant neoplasm of ascending colon; D63.0 Anemia in neoplastic disease; D50.9 Iron deficiency anemia, unspecified
CPT/HCPCS: 36591; 80053; 82378; 82607; 82728; 82746; 83735; 85025

== ENCOUNTER → 2021-04-01 01:52 | Outpatient (CLI) | payer MEDICARE, SELFPAY ==
[2021-04-01] MEDS: Breeza Beverage 473 ML BTL PO ×2 (08:32→08:33)
[2021-04-01] MEDS: Omnipaque 350 MG/ML 50 ML BTL PO (08:33)
[2021-04-01] MEDS: Normal Saline - Diluent 50 ML VIAL IV (10:31)
[2021-04-01] MEDS: Omnipaque 350 MG/ML 100 ML BTL IJ (10:32)
--- NOTE | 2021-04-01 10:56 | DI.CT_ITS ---
Exam(s) CT CHEST/ABD/PEL W EXAM: CT CHEST/ABD/PEL W CLINICAL HISTORY: COLON CA,C18.9,RESTAGING EXAM,S/P CHEMO,COMPARE TO 07/15 AND 09/23/20 AT [facility] [place] TECHNIQUE: Imaging Protocol: Axial computed tomography images with coronal and sagittal reformatted images were created and reviewed CONTRAST MATERIAL: Intravenous: Omnipaque 350 Contrast volume:100 Oral: yes / COMPARISON: CT CT ABDOMEN PELVIS CTA from 07/15/[address] CHEST WO CONTRAST from 09/23/[address] CHEST WO CONTRAST from 09/23/2020 FINDINGS: CHEST: Tracheobronchial tree: Patent where visualized. Mediastinum and Hailey: No dominant adenopathy or fluid collection. Pulmonary parenchyma: No consolidation or dominant measurable mass. No pulmonary nodules. Pleura: No effusion or pneumothorax. Lymph nodes: Within normal limits. Aorta: Thoracic portion non-dilated. Minimal calcifications. Heart: Normal size. Minimal coronary artery calcifications. Bones: Degenerative changes thoracic spine. Port located over the left pectoral muscle. Tip of port terminates in right atrium. ABDOMEN: Liver: Moderate to severe diffuse hepatic steatosis.. No measurable mass. Gallbladder and biliary tract: Status post cholecystectomy. No biliary dilation. Pancreas: Normal density, no abnormal calcifications or inflammatory process. Spleen: Normal. Kidneys: Normal size, contour and axis. No radiodense stones or obstructive uropathy. No masses seen. Adrenal glands: No masses seen. Aorta: Abdominal portion non-dilated. Lymph nodes: Within normal limits. PELVIS: Bladder: Symmetric distention, no gross wall thickening. Bowel: Ileocolic anastomosis unremarkable. No visible recurrence mass. Moderate quantity of stool. Diverticulosis sigmoid. No diverticulitis. No obstruction or bowel wall thickening. Peritoneal cavity: No ascites, collection or mesenteric inflammatory response. Bones: Degenerative changes greatest in the lower lumbar spine. Reproductive organs: Within normal limits. IMPRESSION: Intact ileocolic anastomosis. No evidence of metastatic disease in the chest abdomen or pelvis. RADIATION DOSE DELIVERED: 2,387.1mGy.cm Total DLP DATA REPOSITORY: All CT scans at this facility are submitted to the National Radiology Data Registry (NRDR) Dose Index Registry (DIR) with the [employer] (ACR). RADIATION OPTIMIZATION: All CT scans at this facility use at least one of these dose optimization te chniques: automated exposure control; mA and/or kV adjustment per patient size (includes targeted exa ms where dose is matched to clinical indication); or iterative reconstruction.
== END ==
PROVIDERS: PCP Neuromusculoskeletal Medicine & OMM; Visit Provider Nurse Practitioner Adult Health
DX: C18.2 Malignant neoplasm of ascending colon (principal); Z92.21 Personal history of antineoplastic chemotherapy; Z12.89 Encounter for screening for malignant neoplasm of other sites; Z98.0 Intestinal bypass and anastomosis status
CPT/HCPCS: 74177; 96523; 71260; J3490; Q9967

== ENCOUNTER 2021-04-01 02:44 | Outpatient (RCR) | payer MEDICARE, SELFPAY ==
[2021-04-01] MEDS: Heparin 500 UNITS/5 ML SYRINGE IV (08:58)
[2021-04-01] MEDS: Normal Saline Flush 10 ML SYR IVP (08:58)
== END 2021-04-14 23:59 | disposition home or self-care (01) ==
LOC: INF 02:44
PROVIDERS: PCP Neuromusculoskeletal Medicine & OMM; Visit Provider Internal Medicine
DX: C18.2 Malignant neoplasm of ascending colon; Z45.2 Encounter for adjustment and management of vascular access device
CPT/HCPCS: 96523

== ENCOUNTER 2021-04-18 10:04 | Outpatient (REF) | payer MEDICARE, SELFPAY ==
[2021-04-18 10:22] LABS: Abs Immature Grans 0.01 10^3/uL (0.0-0.06); Absolute Basophil Count 0.04 10^3/uL (0.0-0.2); Absolute Eosinophil Count 0.27 10^3/uL (0.0-0.7); Absolute Lymphocyte Count 0.93 10^3/uL (1.2-3.4); Absolute Monocyte Count 0.68 10^3/uL (0.1-0.8); Absolute Neutrophil Count 3.92 10^3/uL (1.2-6.7); Basophils % 0.7; Eosinophils % 4.6; HCT 35.1 % (36.0-46.0); HGB 11.5 g/dL (11.2-15.7); Immature Grans % 0.2; Lymphocytes % 15.9; MCH 33.7 pg (27.0-33.0); MCHC 32.8 % (32.0-36.0); MCV 102.9 fL (80-95); MPV 8.6 fL (8.0-11.0); Monocytes % 11.6; Nucleated RBC 0 %; Platelet Count 345 10^3/uL (130-400); RBC 3.41 10^6/uL (3.93-5.22); RDW 12.3 % (11.7-14.6); RDW-SD 46.6 fL; WBC 5.85 10^3/uL (4.4-10.8)
[2021-04-18 10:33] LABS: ALT 25 U/L (14-59); AST 21 U/L (15-37); Albumin 3.2 g/dL (3.4-5.0); Alkaline Phosphatase 85 U/L (46-116); Anion Gap 7.7 mmol/L (3-11); BUN 24 mg/dL (7-18); Bilirubin, Total 0.2 mg/dL (0.2-1.0); CO2 25.3 mmol/L (21.0-32.0); Calcium 9.3 mg/dL (8.5-10.1); Chloride 105 mmol/L (98-107); Estimated GFR 54.81 (mL/min/1.73m2); Glucose 87 mg/dL (74-106); Potassium 4.4 mmol/L (3.5-5.1); Sodium 138 mmol/L (136-145); Total Protein 7.2 g/dL (6.4-8.2)
[2021-04-18 17:02] LABS: CEA <2.0 ng/mL (See Note)
== END 2021-04-18 10:05 | disposition home or self-care (01) ==
LOC: LBN 10:04
PROVIDERS: PCP Neuromusculoskeletal Medicine & OMM; Visit Provider Internal Medicine
DX: C18.2 Malignant neoplasm of ascending colon (principal)
CPT/HCPCS: 80053; 82378; 85025

== ENCOUNTER 2021-07-25 07:25 | Outpatient (RCR) | payer MEDICARE, SELFPAY ==
[2021-07-25] MEDS: Heparin 500 UNITS/5 ML SYRINGE IVP (13:43)
[2021-07-25] MEDS: Normal Saline Flush 10 ML SYR IVP (13:44)
[2021-07-25 14:30] LABS: Abs Immature Grans 0.01 10^3/uL (0.0-0.06); Absolute Basophil Count 0.01 10^3/uL (0.0-0.2); Absolute Eosinophil Count 0.13 10^3/uL (0.0-0.7); Absolute Lymphocyte Count 0.86 10^3/uL (1.2-3.4); Absolute Neutrophil Count 4.03 10^3/uL (1.2-6.7); Basophils % 0.2; Eosinophils % 2.4; HGB 12.5 g/dL (11.2-15.7); Immature Grans % 0.2; Lymphocytes % 15.8; MCH 28.9 pg (27.0-33.0); MCHC 32.1 % (32.0-36.0); MCV 90.3 fL (80-95); MPV 8.6 fL (8.0-11.0); Monocytes % 7.4; Nucleated RBC 0 %; Platelet Count 416 10^3/uL (130-400); RBC 4.32 10^6/uL (3.93-5.22); RDW 12.4 % (11.7-14.6); WBC 5.44 10^3/uL (4.4-10.8)
[2021-07-25 14:40] LABS: ALT 31 U/L (14-59); AST 23 U/L (15-37); Albumin 3.6 g/dL (3.4-5.0); Alkaline Phosphatase 83 U/L (46-116); Anion Gap 9.8 mmol/L (3-11); BUN 18 mg/dL (7-18); Bilirubin, Total 0.2 mg/dL (0.2-1.0); CO2 25.2 mmol/L (21.0-32.0); CREATININE 0.9 mg/dL (0.55-1.02); Calcium 9.4 mg/dL (8.5-10.1); Chloride 104 mmol/L (98-107); Glucose 120 mg/dL (74-106); Potassium 3.9 mmol/L (3.5-5.1); Sodium 139 mmol/L (136-145); Total Protein 7.8 g/dL (6.4-8.2)
[2021-07-28 10:01] LABS: CEA <2.0 ng/mL (See Note)
== END 2021-08-14 23:59 | disposition home or self-care (01) ==
LOC: INF 07:25
PROVIDERS: PCP Neuromusculoskeletal Medicine & OMM; Visit Provider Internal Medicine
DX: C18.2 Malignant neoplasm of ascending colon (principal); Z45.2 Encounter for adjustment and management of vascular access device; K12.30 Oral mucositis (ulcerative), unspecified; R11.2 Nausea with vomiting, unspecified
CPT/HCPCS: 36415; 36591; 80053; 82378; 83735; 85025

== ENCOUNTER 2021-09-25 12:40 | Outpatient (CLI) | payer MEDICARE, SELFPAY ==
--- NOTE | 2021-09-25 11:15 | DI.RAD_ITS ---
Exam(s) XR KNEE RT 3V AP,[place]AT,[place] EXAM: XR KNEE RT 3V AP,[place] CLINICAL HISTORY: pain. TECHNIQUE: 2D digital imaging was performed. COMPARISON: CR XR KNEE LT 3V AP,[place] from 09/25/2021 FINDINGS: BONES: No acute fracture is present. No bony destructive lesion is seen. JOINTS: Moderate to severe narrowing of the medial femoral tibial joint space. Periarticular spurrin g throughout.. No joint effusion is seen. SOFT TISSUE: Normal. IMPRESSION: Degenerative changes, greatest of the medial femoral tibial joint. DATA REPOSITORY: RADIATION DOSE DELIVERED:
--- NOTE | 2021-09-25 11:15 | DI.RAD_ITS ---
Exam(s) XR KNEE LT 3V AP,[place] EXAM: XR KNEE LT 3V AP,[place] CLINICAL HISTORY: pain. TECHNIQUE: 2D digital imaging was performed. COMPARISON: MR MRI L LOWER JOINT WO CONT from 11/22/2017 FINDINGS: BONES: No acute fracture is present. No bony destructive lesion is seen. JOINTS: Moderate narrowing medial femoral tibial joint. Periarticular spurring throughout.. No join t effusion is seen. SOFT TISSUE: Normal. IMPRESSION: Degenerative changes, greatest of the medial femoral tibial joint. DATA REPOSITORY: RADIATION DOSE DELIVERED:
== END 2021-09-25 12:41 | disposition home or self-care (01) ==
LOC: DIORS 12:40
PROVIDERS: PCP Neuromusculoskeletal Medicine & OMM; Referring Provider Neuromusculoskeletal Medicine & OMM; Visit Provider Student in an Organized Health Care Education/Training Program
DX: M25.562 Pain in left knee; M25.561 Pain in right knee; M17.11 Unilateral primary osteoarthritis, right knee; M17.12 Unilateral primary osteoarthritis, left knee; Z98.890 Other specified postprocedural states
CPT/HCPCS: 20610; 73562; J1040

== ENCOUNTER 2021-10-20 00:29 | Outpatient (CLI) | payer MEDICARE, SELFPAY ==
[2021-10-20] MEDS: Breeza Beverage 473 ML BTL PO ×2 (08:36→10:16)
--- NOTE | 2021-10-20 10:00 | DI.CT_ITS ---
Exam(s) CT CHEST/ABD/PEL W EXAM: CT CHEST/ABD/PEL W CLINICAL HISTORY: COLON CANCER Z85.038. TECHNIQUE: Imaging Protocol: Axial computed tomography images with coronal and sagittal reformatted images were created and reviewed CONTRAST MATERIAL: Intravenous: Omnipaque 350 Contrast volume:100 ml Oral: Yes COMPARISON: CR XR PORTABLE CHEST AP from 08/13/[address] CHEST/ABD/PEL W from 04/01/[address] CHEST/ABD/PEL W from 04/01/2021 FINDINGS: CHEST: LUNGS: Unchanged scarring is noted in the lateral basal segment of the left lower lobe. No concernin g left lung nodules nor pleural effusion.. In the opposite-right lung there are benign-appearing inc reased markings in right lower lobe, similar to previous. No new nodules. No pleural effusions. No focal findings in the trachea and mainstem bronchi. MEDIASTINUM: There is no hilar nor mediastinal adenopathy. Distal tip of the Port-A-Cath is at the SV C-RA junction. CARDIAC: Heart size is normal. There is no pericardial effusion.Caliber of the thoracic aorta is wit hin normal limits. OSSEOUS: No significant osseous lesions.. ABDOMEN: There is no ascites. LIVER: Hepatic steatosis again noted, albeit slightly improved. No significant focal lesions evident in the liver. No dilatation of intrahepatic ducts. GALLBLADDER/BILIARY: The gallbladder is again noted to be surgically absent. CBD is not dilated. PANCREAS: No evidence of pancreatic mass nor dilatation of the pancreatic duct. SPLEEN: Spleen is not enlarged. There are no intrasplenic lesions. Splenic and portal veins are land nt. ADRENALS: There are no significant adrenal masses. KIDNEYS: No calculi nor hydronephrosis. No solid renal masses. No cysts evident. ABDOMINAL AORTA: Abdominal aorta is not enlarged. LYMPH NODES: There is no retroperitoneal nor paraaortic adenopathy. ABDOMINAL WALL: No evidence of significant anterior abdominal wall nor inguinal hernia. GI: Again noted is evidence of partial right hemicolectomy. At the level of the ileocolic anastomosi s there is some circumferential wall thickening, possibly significant. No leak. No abscess. PELVIS: LYMPH NODES: There is no intrapelvic nor inguinal adenopathy. GI: No evidence of sigmoid diverticulitis. URINARY BLADDER: No calculi nor masses evident REPRODUCTIVE: Uterus and adnexal regions are age-appropriate. OSSEOUS: No significant osseous lesions. Disc space narrowing L5-S1 level. No listhesis. Mild listhesis and anteriorly L4 upon L5 which is d ue to degenerative facet arthropathy. IMPRESSION: 1. Compared to the prior CT scan of March 2021 there is again noted an ileocolic anastomosis. Although there is no evidence of leak, there is some circumferential thickening of the wall oF the colon the anastomosis level. Recommend colonoscopy for direct visualization. 2. No evidence of metastatic disease in the chest, abdomen, and pelvis. 3. 4. RADIATION DOSE DELIVERED: 2,668.88mGy.cm Total DLP DATA REPOSITORY: All CT scans at this facility are submitted to the National Radiology Data Registry (NRDR) Dose Index Registry (DIR) with the [employer] (ACR). RADIATION OPTIMIZATION: All CT scans at this facility use at least one of these dose optimization te chniques: automated exposure control; mA and/or kV adjustment per patient size (includes targeted exa ms where dose is matched to clinical indication); or iterative reconstruction.
[2021-10-20] MEDS: Omnipaque 350 MG/ML 100 ML BTL 94 ML IV (10:12)
== END 2021-10-20 00:49 ==
LOC: DI 00:35
PROVIDERS: PCP Neuromusculoskeletal Medicine & OMM; Visit Provider Nurse Practitioner Adult Health
DX: Z85.038 Personal history of other malignant neoplasm of large intestine (principal); K63.89 Other specified diseases of intestine
CPT/HCPCS: 36591; 74177; 80053; 71260; 82378; 85025; J3490

== ENCOUNTER 2021-10-20 02:27 | Outpatient (RCR) | payer MEDICARE, SELFPAY ==
[2021-10-20] MEDS: Heparin 500 UNITS/5 ML SYRINGE IV (08:05)
[2021-10-20] MEDS: Normal Saline Flush 10 ML SYR IVP (08:05)
[2021-10-20 08:54] LABS: Abs Immature Grans 0.02 10^3/uL (0.0-0.06); Absolute Basophil Count 0.02 10^3/uL (0.0-0.2); Absolute Eosinophil Count 0.15 10^3/uL (0.0-0.7); Absolute Lymphocyte Count 0.91 10^3/uL (1.2-3.4); Absolute Neutrophil Count 4.26 10^3/uL (1.2-6.7); Basophils % 0.3; Eosinophils % 2.6; HGB 11.8 g/dL (11.2-15.7); Immature Grans % 0.3; Lymphocytes % 15.5; MCH 29.1 pg (27.0-33.0); MCHC 31.9 % (32.0-36.0); MCV 91.4 fL (80-95); Monocytes % 8.5; Neutrophils % 72.8; Nucleated RBC 0 %; RBC 4.05 10^6/uL (3.93-5.22); RDW 14.5 % (11.7-14.6); WBC 5.86 10^3/uL (4.4-10.8)
[2021-10-20] MEDS: Normal Saline Flush 10 ML SYR 30 ML IVP (08:56)
[2021-10-20 09:10] LABS: ALT 23 U/L (14-59); AST 18 U/L (15-37); Albumin 3.1 g/dL (3.4-5.0); Alkaline Phosphatase 105 U/L (46-116); BUN 24 mg/dL (7-18); Bilirubin, Total 0.3 mg/dL (0.2-1.0); CREATININE 0.9 mg/dL (0.55-1.02); Calcium 8.9 mg/dL (8.5-10.1); Chloride 104 mmol/L (98-107); Glucose 105 mg/dL (74-106); Potassium 3.6 mmol/L (3.5-5.1); Sodium 140 mmol/L (136-145); Total Protein 7.2 g/dL (6.4-8.2)
[2021-10-20] MEDS: Heparin 500 UNITS/5 ML SYRINGE (10:33)
[2021-10-20 17:23] LABS: CEA 4.2 ng/mL (See Note)
== END 2021-11-14 23:59 | disposition home or self-care (01) ==
LOC: INF 02:27
PROVIDERS: Internal Medicine; PCP Neuromusculoskeletal Medicine & OMM; Visit Provider Nurse Practitioner Adult Health
DX: C18.2 Malignant neoplasm of ascending colon (principal); Z45.2 Encounter for adjustment and management of vascular access device
CPT/HCPCS: 36591; 80053; 82378; 85025; J3490

== ENCOUNTER → 2021-10-31 11:38 | Outpatient (BNVA) | payer MEDICARE, SELFPAY | PROVIDERS: PCP Neuromusculoskeletal Medicine & OMM; Referring Provider Neuromusculoskeletal Medicine & OMM; Visit Provider Surgery | DX: R93.3 Abnormal findings on diagnostic imaging of other parts of digestive tract (principal); Z85.038 Personal history of other malignant neoplasm of large intestine; F44.9 Dissociative and conversion disorder, unspecified | CPT/HCPCS: 99212; 99213 ==

== ENCOUNTER 2021-10-31 16:06 | Outpatient (REF) | payer MEDICARE, SELFPAY ==
[2021-10-31 12:57] LABS: Source Nasal/Nares
[2021-10-31 16:11] LABS: COVID-19 PCR Negative (Negative)
== END 2021-10-31 16:07 | disposition home or self-care (01) ==
LOC: LBN 16:06
PROVIDERS: PCP Neuromusculoskeletal Medicine & OMM; Visit Provider Surgery
DX: Z20.822 Contact with and (suspected) exposure to COVID-19 (principal); Z01.812 Encounter for preprocedural laboratory examination
CPT/HCPCS: 87635

== ENCOUNTER 2021-11-03 09:49 | Day surgery (SDC) | payer MEDICARE, SELFPAY ==
--- NOTE | 2021-11-03 06:47 | COLE_ITS ---
Colonoscopy Report Date of procedure: 11/03/21 Pre-op diagnosis general: Hx of colon cancer, abnormal CT scan Post-op diagnosis procedure note: same (diverticulosis) Procedure: Colonoscopy with biopsies Surgeon: Lorena Toney Anesthesia Type: General:No Airway (Alf Shane CRNA and RUBÉN Rosario) Estimated blood loss (mL): 3 Pathology: other (anastamotic biopsies) Complications: None Disposition: same day Indications: Maryjo is a pleasant 71-year-old female diagnosed with colon cancer, status post right colectomy. She had a normal colonoscopy in September 2020. Repeat CT scan this month done for surveillance showed thickening at the anastomosis. Her labs also showed a slight increase in her CEA. I discussed the colonoscopy with Maryjo. Understandably Maryjo is quite nervous and anxious about her colonoscopy. She is requesting some Ativan or Versed when she gets to same-day surgery. I will send anesthesia a note so that they can see her as soon as possible and get her consented in that where she can get something for her anxiety. She also has a past medical history of dissociative disorder and tells me that since her colon cancer diagnosis she has been a little bit more susceptible to that. She just wanted me to be aware that when she wakes up from her anesthesia she may be a much younger version of herself. She did not have any issues with the prep last year so we will use the same MiraLAX prep. Risks, benefits and complications have been reviewed. Complications include but are not limited to bleeding, pain, perforation, missed small lesion/polyp, sore throat, aspiration and adverse reaction to the medications. Questions were ente rtained and answered to their satisfaction and they wished to proceed. No guarantees were given or implied. Colonoscopy under sedation Prep: Miralax/Dulcolax Procedure Start Time: 11:59 Procedure End Time: 12:22 Retraction Time: 11 minutes Findings: some inflammation around the anastamosis. No masses diverticulosis Procedure Description: After informed consent was obtained the patient was taken to the procedure room and placed in a left decubitous position. Monitors were applied and a time out was done. The patients name, date of , procedure, allergies to medications and metal in their body was reviewed. The patient was then sedated. Once sedated and comfortable a rectal exam was done. External exam was normal. Internal exam revealed a normal sphincter tone and no palpable masses. The scope was then introduced and retro-flexed. No internal hemorrhoids, polyps or masses were identified on retro-flexion. The scope was then advanced to the anastamosis without difficulty. There were some visible sutures. There was some mild thickening which looked more inflammatory then polypoid. Biopsies were done. The prep was good. The scope was then slowly retracted over 11 minutes back into the rectum. There was mild sigmoid diverticulosis noted. The scope was removed and the patient was woken up and taken back to Same day surgery in stable condition. The patient tolerated the procedure well and there were no immediate complications. Follow up: The patient should follow up in 11 years unless they develop changes in bowel habits or other new gastrointestinal complaints.
--- NOTE | 2021-11-03 06:48 | PDOC.DSDIS_ITS ---
Discharge Plan Disposition Patient Disposition: HOME Condition: Good Discharge Details Reason For Visit: Colonoscopy Attending Provider: Lorena Toney Primary Care Provider: Shayan Headley [place] Meds and New Rx's Prescriptions: Continued Flovent HFA 44 mcg/actuation HFA aerosol inhaler 2 puff inhalation BID RF: 0 gabapentin 300 mg capsule 300 mg PO TID RF: 0 hydrocodone-acetaminophen 5-325 mg tablet 1 tab PO QHS PRNRF: 0 hydroxyzine HCl 10 mg tablet 10 mg PO QHS RF: 0 prochlorperazine maleate 5 mg tablet 10 mg PO Q6H PRNRF: 0 tramadol 50 mg tablet 50 mg PO Q8H PRNRF: 0 albuterol sulfate [Ventolin HFA] 90 mcg/actuation HFA aerosol inhaler 2 puff inhalation Q6H PRNRF: 0 cyclobenzaprine 5 mg tablet 5 mg PO QHS RF: 0 famotidine 20 mg tablet 20 mg PO BID PRNRF: 0 lansoprazole 30 mg capsule,delayed release(DR/EC) 30 mg PO DAILY RF: 0 lidocaine-prilocaine 2.5-2.5 % cream 1 applic topical ONCE RF: 0 ondansetron HCl 4 mg tablet 4 mg PO Q8H PRNRF: 0 potassium chloride 20 mEq tablet extended release 20 meq PO BID RF: 0 prochlorperazine 25 mg suppository 25 mg [place] Q12H PRNRF: 0 pseudoephedrine HCl 30 mg tablet 30 mg PO Q6H PRNRF: 0 rizatriptan 10 mg tablet See Rx Instructions PO .COMPLEX RF: 0 triamcinolone acetonide 0.5 % cream 1 applic topical DAILY RF: 0 levothyroxine [Synthroid] 112 MCG tablet 112 mcg PO DAILY RF: 0 fluoxetine 40 MG capsule 80 mg PO DAILY RF: 0 zolpidem 5 MG tablet 5 mg PO .QHS RF: 0 risperidone 0.5 MG tablet 0.5 mg PO TID RF: 0 methylphenidate HCl 20 mg tablet 20 mg PO TID PRNRF: 0 acetaminophen 500 mg Tablet 1,000 mg PO QID PRNRF: 0 Discontinued bisacodyl [Dulcolax (bisacodyl)] 5 mg tablet,delayed release (DR/EC) 5 mg PO ONCE Qty: 4 RF: 0 polyethylene glycol 3350 17 gram/dose powder 17 g PO ONCE Qty: 238 RF: 0 Discharge Instructions Additional Instructions: Findings: diverticulosis inflammation of the anastamosis Follow up: 1 year Please call if you develop: fevers >101.5 Nausea or Vomiting Abdominal pain that is not transient Rectal bleeding that is more then a tbsp A hard abdomen and inability to pass gas DAY SURGERY UNIT POST ENDOSCOPY INSTRUCTIONS Instructions for everyone who is given Anesthesia: For your safety, please do the following for the next 24 Hours: a. Do not drive or operate dangerous equipment b. Do not drink alcohol beverages or use any recreational drugs for the first 24 hours or while taking pain medications. The medications in your body may have a reaction that can be dangerous. c. Do not make any important decisions or sign any important papers 1. Generally there are no restrictions on your activity after a day or so has gone by, but you may feel a bit fatigued for a few days. 2. After you arrive home you may have a light meal and return to a normal diet as you can tolerate it without feeling sick to your stomach. 3. After surgery, you may feel pain or discomfort. This should be only transient, but if it persists please contact your doctor. 4. If there are any questions regarding the findings of your procedure, please feel free to contact your doctor. 6. If you are unable to contact your doctor with a problem, contact the hospital at [phone]. 7. Continue all your regular medications unless directed otherwise. I understand the above instructions and have no questions. Signature of Patient or Responsible Adult Escort Date/Time Name of Responsible Adult Escort Signature of Nurse Date/Time Activity:: Activity as Tolerated Diet:: As Tolerated Discharge Orders Discharge Orders: Discharge Order (Routine); Ordered 11/03/21 Ordered By: Lorena Toney
[2021-11-03 10:02] VITALS: BP 133/79; PULSE 82; RESP 18; TEMP 36.8; O2SAT 94
[2021-11-03] MEDS: Lactated Ringers 1,000 ML 80 ML IV (11:03)
--- NOTE | 2021-11-03 11:28 | W.ANESPRE ---
General Info Date of Service Date Performed: 11/03/21 Height: 5 ft 3 in Weight: 101.1 kg Body Mass Index (BMI): 39.4 Surgical Procedure: Operation Date: 11/03/21 11:20 Proposed Procedures Side Surgeon p Colonoscopy Lorena Toney MD Meds Allergies and Home Medications Allergies Allergy/AdvReac Type Severity Reaction Status Date / Time niacin Allergy Unknown Skin Rash Unverified 11/03/21 10:09 codeine Allergy Verified 11/03/21 10:09 Penicillins AdvReac Severe Dizziness/L Unverified 11/03/21 10:09 ightheade Sulfa (Sulfonamide AdvReac Unknown Nausea Unverified 11/03/21 10:09 Antibiotics) cortisone AdvReac Psychosis Verified 11/03/21 10:09 meperidine [From Demerol] AdvReac Visual Verified 11/03/21 10:09 Disturbances NSAIDS (Non-Steroidal AdvReac Verified 11/03/21 10:09 Anti-Inflamma Home Medication Medication Instructions Recorded levothyroxine [Synthroid] 112 mcg PO DAILY tab-cap 02/15/17 fluoxetine 80 mg PO DAILY 05/02/17 risperidone 0.5 mg PO TID 05/02/17 zolpidem 5 mg PO .QHS 05/02/17 methylphenidate HCl 20 mg PO TID PRN 07/15/20 acetaminophen 1,000 mg PO QID PRN 08/09/20 albuterol sulfate 90 mcg/actuation 2 puff INHALATION Q6H PRN 09/16/21 aerosol inhaler fluticasone propionate 44 2 puff INHALATION BID 09/16/21 mcg/actuation HFA aerosol inhaler gabapentin 300 mg capsule 300 mg PO TID 09/16/21 hydrocodone 5 mg-acetaminophen 325 1 tab PO QHS PRN 09/16/21 mg tablet hydroxyzine HCl 10 mg tablet 10 mg PO QHS 09/16/21 prochlorperazine maleate 5 mg 10 mg PO Q6H PRN tab 09/16/21 tablet tramadol 50 mg tablet 50 mg PO Q8H PRN tab 09/16/21 cyclobenzaprine 5 mg tablet 5 mg PO QHS 10/30/21 famotidine 20 mg tablet 20 mg PO BID PRN 10/30/21 lansoprazole 30 mg capsule,delayed 30 mg PO DAILY 10/30/21 release lidocaine-prilocaine 2.5 %-2.5 % 1 applic TOPICAL ONCE 10/30/21 topical cream ondansetron HCl 4 mg tablet 4 mg PO Q8H PRN 10/30/21 potassium chloride 20 mEq 20 meq PO BID 10/30/21 tablet,extended release prochlorperazine 25 mg rectal 25 mg [place] Q12H PRN 10/30/21 suppository pseudoephedrine HCl 30 mg tablet 30 mg PO Q6H PRN tab 10/30/21 rizatriptan 10 mg tablet See Rx Instructions PO .COMPLEX 10/30/21 triamcinolone acetonide 0.5 % 1 applic TOPICAL DAILY 10/30/21 topical cream bisacodyl 5 mg tablet,delayed 5 mg PO ONCE #4 tab 10/31/21 release polyethylene glycol 3350 17 17 g PO ONCE #238 g 10/31/21 gram/dose oral powder Current Visit Medications: Current Medications Generic Name Dose Route Start Last Admin Trade Name Freq PRN Reason Stop Dose Admin Hyoscyamine Sulfate 0.125 mg 11/03/21 06:49 Hyoscyamine 0.125 Mg Sl/Oral/Chew SL DIRECTED PRN Ringer's Solution 1,000 mls @ 80 mls/hr 11/03/21 06:00 11/03/21 11:03 IV 11/30/21 23:59 80 mls/hr INFUSION MARCO ANTONIO Administration IV Miscellaneous Supplies 1 each 11/03/21 06:00 Iv Access IV 11/30/21 23:59 DIRECTED MARCO ANTONIO Ondansetron HCl 4 mg 11/03/21 06:49 Ondansetron 4 Mg/2 Ml Vial IVP Q4H PRN PRN Nausea / Vomiting Sodium Chloride 0 ml 11/03/21 06:00 Normal Saline Flush 10 Ml Syr IV 11/30/21 23:59 PRN PRN Sodium Chloride 0 ml 11/03/21 06:00 Normal Saline 10 Ml Vial IJ 11/30/21 23:59 DIRECTED PRN Sterile Water 0 ml 11/03/21 06:00 Water,Injection,Sterile 10 Ml Vial IJ 11/30/21 23:59 DIRECTED PRN PFSH Active Problems Active Problems: Problem Status Onset Code Colon cancer, ascending C18.2 PA (dyspnea on exertion) R06.00 Obesity E66.9 Iron deficiency anemia D50.9 Medical History Medical History Anxiety Asthma Depression Dissociative identity disorder Epistaxis, recurrent GERD (gastroesophageal reflux disease) Hx of small bowel obstruction Hyperlipidemia Hypertension Hypothyroidism Knee arthropathy Migraine headache Primary osteoarthritis of left knee Steroid injection: 09/25/2021 Primary osteoarthritis of right knee Steroid injection: 09/25/2021 PTSD (post-traumatic stress disorder) Thrombocythemia Surgical History Surgical History History of cholecystectomy S/P right hemicolectomy S/P right rotator cuff repair Tobacco Smoking/Tobacco Use Status: Former Tobacco Use Alcohol Alcohol Intake: former Substance Use Substance use: Occasionally Substance use type: marijuana Vital Signs and Lab Results Vital Signs Most Recent Vital Signs in EMR: Most Recent Vital Signs Temp Pulse Resp BP Pulse Ox 36.8 C 82 18 133/79 94 11/03/21 10:02 11/03/21 10:02 11/03/21 10:02 11/03/21 10:02 11/03/21 10:02 Lab Results Blood Type / Crossmatch: No Data to Display Complete Blood Count: White Blood Count 5.86 10^3/uL (4.4-10.8) 10/20/21 08:22 10/20/21 Red Blood Count 4.05 10^6/uL (3.93-5.22) 10/20/21 08:22 10/20/21 Hemoglobin 11.8 g/dL (11.2-15.7) 10/20/21 08:22 10/20/21 Hematocrit 37.0 % (36.0-46.0) 10/20/21 08:22 10/20/21 Platelet Count 10^3/uL (130-400) 10/20/21 08:22 10/20/21 Complete Metabolic Panel: Sodium Level 140 mmol/L (136-145) 10/20/21 08:22 10/20/21 Potassium Level 3.6 mmol/L (3.5-5.1) 10/20/21 08:22 10/20/21 Chloride Level 104 mmol/L (98-107) 10/20/21 08:22 10/20/21 Carbon Dioxide Level 27.0 mmol/L (21.0-32.0) 10/20/21 08:22 10/20/21 Blood Urea Nitrogen 24 mg/dL (7-18) H 10/20/21 08:22 10/20/21 Creatinine 0.9 mg/dL (0.55-1.02) 10/20/21 08:22 10/20/21 Estimated GFR/1.73 m2 >= 60.00 (mL/min/1.73m2) 10/20/21 08:22 10/20/21 Calcium Level 8.9 mg/dL (8.5-10.1) 10/20/21 08:22 10/20/21 Albumin 3.1 g/dL (3.4-5.0) L 10/20/21 08:22 10/20/21 Glucose Level 105 mg/dL (74-106) 10/20/21 08:22 10/20/21 Liver Function Panel: Alanine Aminotransferase (ALT/SGPT) 23 U/L (14-59) 10/20/21 08:22 10/20/21 Aspartate Amino Transf (AST/SGOT) 18 U/L (15-37) 10/20/21 08:22 10/20/21 Coagulation Panel: No Data to Display Cardiac Panel: No Data to Display Arterial Blood Gas: No Data to Display Venous Blood Gas: No Data to Display Pancreas Panel: No Data to Display Thyroid Panel: No Data to Display Infectious Disease: Coronavirus (COVID-19)(PCR) Negative (Negative) 10/31/21 11:55 10/31/21 Coronavirus 2019 Source Nasal/Nares 10/31/21 11:55 10/31/21 Blood Cultures: No Data to Display Toxicology Panel: No Data to Display Anesthesia Assessment and Plan Anesthesia History Personal History: No History of Anesthesia Complications Family History: No Family History of Anesthesia Complications Exercise Tolerance Exercise Tolerance: Metabolic Equivalents>4 Pertinent Negatives Pertinent Negatives: No Symptoms of GERD, No Major Cardiovascular Symptoms or Complaints, No Major Pulmonary Symptoms or Complaints and No History of CVA/TIA Cardiac & Pulmonary Exam Cardiac Exam: Normal S1/S2 Heart Sounds Pulmonary Exam: Clear Bilateral Breath Sounds Implantable Cardiac Device Does patient have a Pacemaker or an ICD?: No Airway Exam Known Difficult Airway: No Mallampati Class: 1 Mouth Opening: Normal (> 3cm) Thyromental Distance: Greater than 3 cm Neck Range of Motion: Full ROM Neck Circumference: Normal Teeth Condition: Normal Dentition ASA Classification ASA Score: ASA 2 Emergency Case?: No NPO Status NPO Status: NPO Clears >2 hours, Solids >8 hours Anesthesia Plan Resuscitation Status: Full Code Anesthesia Technique: General Anesthesia Airway Planned: Natural Airway Monitors Used: Standard Monitors
[2021-11-03 11:31] VITALS: BMI 39.4
--- NOTE | 2021-11-03 12:13 | BOWEL_PTH ---
PATIENT: Maryjo Whiteside LOC: [facility] U#:[id number] AGE/SX: 71/F ROOM: RE11/03/[address]: Lorena Toney MD : [id number] BED: DIS: 11/03/2021 SPEC #: [id number] RECD: 11/03/21 13:09 STATUS: ALICIA REQ #: [id number] ZAK: 11/03/21 12:[address]: Lorena Toney DEPT: Surgical Specimen RECD BY: Sary Barnes ENTERED: 11/03/21 13:10 SP TYPE: Bowel OTHR DR: Shayan Headley Tissues: 1 - BIOPSY BOWEL Procedures: GROSS AND MICRO LEVEL 4 Comments: [id number]
[2021-11-03 12:27] VITALS: BP 92/44; PULSE 73; RESP 16; TEMP 36.2; O2SAT 94
[2021-11-03 12:33] VITALS: BP 92/44; PULSE 73; RESP 12; TEMPC 36.2; O2SAT 93
--- NOTE | 2021-11-03 12:33 | W.ANESPOSTOP ---
Postoperative Evaluation Date, Time and Location Date Performed: 11/03/21 Time Performed: 12:33 Patient Location: Day Surgery Unit Vital Signs Most Recent Imported Vital Signs: Most Recent Vital Signs Temp Pulse Resp BP Pulse Ox 36.8 C 82 18 133/79 94 11/03/21 10:02 11/03/21 10:02 11/03/21 10:02 11/03/21 10:02 11/03/21 10:02 Most Recent Manually Entered Vital Signs: Adult Blood Pressure: 92/44 Heart Rate: 73 Respirations: 12 Oxygen Saturation (%): 93 Temperature (C): 36.2 C Pain Score (0-10 Scale): 0 Assessment Mental Status: Awake (Alert & Oriented to Patient Baseline) Airway and Respiratory Function: Patent airway with normal (patient baseline) respiratory exam Cardiovascular Function: Hemodynamically Stable Hydration Status: Adequately Hydrated Nausea & Vomiting: No Nausea or Vomiting Pain: Pt. Denies Any Pain Peripheral Nerve Block: Patient did not receive a nerve block
[2021-11-03 12:57] VITALS: BP 134/76; PULSE 81; RESP 16; TEMP 36.6; O2SAT 95
== END 2021-11-03 13:18 | disposition home or self-care (01) ==
LOC: SUR 09:49
PROVIDERS: PCP Neuromusculoskeletal Medicine & OMM; Visit Provider Surgery
PROC: 0DJD8ZZ Inspection of Lower Intestinal Tract, Via Natural or Artificial Opening Endoscopic (ICD-10-PCS; CPT 45378; principal; 2021-11-03 11:15)
DX: R93.3 Abnormal findings on diagnostic imaging of other parts of digestive tract (principal); K57.30 Diverticulosis of large intestine without perforation or abscess without bleeding; F44.9 Dissociative and conversion disorder, unspecified; Z98.0 Intestinal bypass and anastomosis status; K52.89 Other specified noninfective gastroenteritis and colitis
CPT/HCPCS: 45380; 88305

== ENCOUNTER 2021-12-18 02:30 | Outpatient (RCR) | payer MEDICARE, SELFPAY ==
[2021-12-18] MEDS: Normal Saline Flush 10 ML SYR IVP (13:03)
[2021-12-18] MEDS: Heparin 500 UNITS/5 ML SYRINGE IV (13:03)
== END 2022-01-12 23:59 | disposition home or self-care (01) ==
LOC: INF 02:30
PROVIDERS: PCP Neuromusculoskeletal Medicine & OMM; Visit Provider Nurse Practitioner Adult Health
DX: C18.2 Malignant neoplasm of ascending colon (principal); Z45.2 Encounter for adjustment and management of vascular access device
CPT/HCPCS: 96523

== ENCOUNTER 2022-05-06 01:44 | Outpatient (RCR) | payer MEDICARE, SELFPAY ==
[2022-05-06] MEDS: Normal Saline Flush 10 ML SYR IVP (13:19)
[2022-05-06] MEDS: Heparin 500 UNITS/5 ML SYRINGE IV (13:20)
== END 2022-05-14 23:59 | disposition home or self-care (01) ==
LOC: INF 01:44
PROVIDERS: PCP Neuromusculoskeletal Medicine & OMM; Visit Provider Internal Medicine
DX: Z45.2 Encounter for adjustment and management of vascular access device (principal)
CPT/HCPCS: 96523

== ENCOUNTER 2022-06-10 01:59 | Outpatient (CLI) | payer MEDICARE, SELFPAY ==
--- NOTE | 2022-06-10 13:00 | DI.CT_ITS ---
Exam(s) CT CHEST/ABD/PEL W EXAM: CT CHEST/ABD/PEL W CLINICAL HISTORY: RESTAGING STAGE III COLON CA, C18.2; ELEVATED CEA TECHNIQUE: Imaging Protocol: Axial computed tomography images with coronal and sagittal reformatted images were created and reviewed CONTRAST MATERIAL: Intravenous: Omnipaque 350 contrast volume:100 mL Oral: Yes COMPARISON: CT CT CHEST/ABD/PEL W from 10/20/2021 FINDINGS: CHEST: Tracheobronchial tree: Patent where visualized. Pulmonary parenchyma: No consolidation or dominant measurable mass. There is scarring in the lung bas es. No pulmonary nodules are present. Visualized thyroid gland: Not well visualized. Mediastinum and Hailey: No dominant adenopathy or fluid collection. The esophagus is unremarkable. Pleura: No effusion or pneumothorax. Heart: The heart is not dilated. No coronary artery calcifications are seen. No pericardial effusion. Pulmonary arteries: No pulmonary emboli are identified. Aorta: Thoracic aorta non-dilated. Mild atherosclerosis. Lymph nodes: Within normal limits. Tubes, Catheters, and Lines: The tip of the central venous catheter is in good position. Soft tissues: Unremarkable. Bones:Within normal limits for the patient's age. No aggressive osseous lesions. ABDOMEN: Liver: There is diffuse fatty infiltration of the liver. No measurable mass. Portal, Superior Mesenteric, and Splenic Veins: Unremarkable. Gallbladder and Biliary Tract: Status post cholecystectomy. No significant biliary ductal dilatation . Pancreas: Normal density, no abnormal calcifications or inflammatory process. Spleen: Normal. Adrenals: No masses seen. Kidneys: Normal size, contour and axis. Nonobstructing left renal stone. No masses seen. Abdominal Aorta: Abdominal portion non-dilated. Bowel: No evidence of bowel obstruction. There are diverticula seen in the sigmoid colon, but no ofelia dence of acute diverticulitis. There is mild thickening of the antrum of the stomach. No other sign ificant bowel wall thickening is seen. No evidence of appendicitis. Peritoneal Cavity: No ascites, collection or mesenteric inflammatory response. No free air. Lymph Nodes: Within normal limits. Bones: Within normal limits for the patient's age. No aggressive osseous lesions are present. Soft Tissues: Unremarkable. PELVIS: Bladder: Symmetric distention, no gross wall thickening. Reproductive Organs: Unremarkable as visualized. Lymph Nodes: Within normal limits. Bones: Within normal limits. IMPRESSION: 1. No evidence of chest, abdominal or pelvic metastatic disease. 2. Mild thickening of the wall of the antrum of the stomach. This may be due to underdistention but infectious/inflammatory gastritis or neoplasm cannot be excluded. Upper GI or upper endoscopy may be obtained for further evaluation. RADIATION DOSE DELIVERED: 2,470.08mGy.cm Total DLP DATA REPOSITORY: All CT scans at this facility are submitted to the National Radiology Data Registry (NRDR) Dose Index Registry (DIR) with the [employer] (A[employer]). RADIATION OPTIMIZATION: All CT scans at this facility use at least one of these dose optimization te chniques: automated exposure control; mA and/or kV adjustment per patient size (includes targeted exa ms where dose is matched to clinical indication); or iterative reconstruction.
[2022-06-10] MEDS: Omnipaque 350 MG/ML 100 ML BTL IJ (13:41)
[2022-06-10] MEDS: Normal Saline Flush 10 ML SYR IVP (13:47)
== END 2022-06-10 02:19 ==
LOC: DI 02:00
PROVIDERS: PCP Neuromusculoskeletal Medicine & OMM; Visit Provider Internal Medicine
DX: C18.2 Malignant neoplasm of ascending colon (principal); K31.89 Other diseases of stomach and duodenum; R97.0 Elevated carcinoembryonic antigen [CEA]
CPT/HCPCS: 74177; 71260; J3490

== ENCOUNTER 2022-06-10 02:28 | Outpatient (RCR) | payer MEDICARE, SELFPAY ==
[2022-05-26] MEDS: Heparin 500 UNITS/5 ML SYRINGE IV (14:05)
[2022-05-26] MEDS: Normal Saline Flush 10 ML SYR IVP (14:05)
[2022-05-26 14:12] LABS: Abs Immature Grans 0.02 10^3/uL (0.0-0.06); Absolute Basophil Count 0.03 10^3/uL (0.0-0.2); Absolute Eosinophil Count 0.12 10^3/uL (0.0-0.7); Absolute Monocyte Count 0.45 10^3/uL (0.1-0.8); Absolute Neutrophil Count 4.78 10^3/uL (1.2-6.7); Basophils % 0.5; Eosinophils % 1.8; HCT 40.3 % (36.0-46.0); Immature Grans % 0.3; Lymphocytes % 18.2; MCH 30.4 pg (27.0-33.0); MCHC 32.3 % (32.0-36.0); MCV 94 fL (80-95); MPV 8.5 fL (8.0-11.0); Monocytes % 6.8; Neutrophils % 72.4; Platelet Count 280 10^3/uL (130-400); RBC 4.28 10^6/uL (3.93-5.22); RDW 14.5 % (11.7-14.6); RDW-SD 50.4 fL
[2022-05-26 14:42] LABS: ALT 33 U/L (14-59); AST 23 U/L (15-37); Albumin 3.3 g/dL (3.4-5.0); Alkaline Phosphatase 86 U/L (46-116); BUN 20 mg/dL (7-18); Bilirubin, Total 0.2 mg/dL (0.2-1.0); CREATININE 1.1 mg/dL (0.55-1.02); Calcium 8.5 mg/dL (8.5-10.1); Chloride 103 mmol/L (98-107); Estimated GFR 48.96 (mL/min/1.73m2); Ferritin 178 ng/mL (8-252); Glucose 143 mg/dL (74-106); Potassium 3.7 mmol/L (3.5-5.1); Sodium 141 mmol/L (136-145); Total Protein 7.3 g/dL (6.4-8.2)
[2022-05-27 18:37] LABS: CEA 18.1 ng/mL (See Note)
[2022-06-10] MEDS: Normal Saline Flush 10 ML SYR IVP ×2 (11:08→13:55)
[2022-06-10] MEDS: Heparin 500 UNITS/5 ML SYRINGE IV (13:55)
== END 2022-06-14 23:59 | disposition home or self-care (01) ==
LOC: INF 02:28
PROVIDERS: PCP Neuromusculoskeletal Medicine & OMM; Visit Provider Internal Medicine
DX: C18.9 Malignant neoplasm of colon, unspecified (principal); Z45.2 Encounter for adjustment and management of vascular access device
CPT/HCPCS: 36591; 80053; 82378; 82728; 85025

== ENCOUNTER 2022-07-28 03:12 | Outpatient (RCR) | payer MEDICARE, SELFPAY ==
[2022-07-28] MEDS: Normal Saline Flush 10 ML SYR IVP (14:17)
[2022-07-28] MEDS: Heparin 500 UNITS/5 ML SYRINGE IV (14:18)
== END 2022-08-14 23:59 | disposition home or self-care (01) ==
LOC: INF 03:12
PROVIDERS: PCP Neuromusculoskeletal Medicine & OMM; Visit Provider Internal Medicine
DX: Z45.2 Encounter for adjustment and management of vascular access device (principal)
CPT/HCPCS: 96523

== ENCOUNTER 2022-09-11 01:19 | Outpatient (RCR) | payer MEDICARE, SELFPAY ==
[2022-09-11] MEDS: Normal Saline Flush 10 ML SYR IVP (13:04)
[2022-09-11] MEDS: Heparin 500 UNITS/5 ML SYRINGE (13:06)
== END 2022-09-14 23:59 | disposition home or self-care (01) ==
LOC: INF 01:19
PROVIDERS: PCP Neuromusculoskeletal Medicine & OMM; Visit Provider Internal Medicine
DX: Z45.2 Encounter for adjustment and management of vascular access device (principal)
CPT/HCPCS: 96523

== ENCOUNTER → 2022-09-18 10:55 | Outpatient (BNVA) | payer MEDICARE, SELFPAY | PROVIDERS: PCP Neuromusculoskeletal Medicine & OMM; Referring Provider Neuromusculoskeletal Medicine & OMM; Visit Provider Surgery | DX: Z12.11 Encounter for screening for malignant neoplasm of colon (principal); R97.0 Elevated carcinoembryonic antigen [CEA]; C18.9 Malignant neoplasm of colon, unspecified; K21.9 Gastro-esophageal reflux disease without esophagitis; R93.3 Abnormal findings on diagnostic imaging of other parts of digestive tract ==

== ENCOUNTER 2022-10-14 08:07 | Day surgery (SDC) | payer MEDICARE, SELFPAY ==
--- NOTE | 2022-10-14 06:31 | ENDO_ITS ---
Date of service: 10/14/22 Time of Service: 11:21 Endoscopy Report DATE OF PROCEDURE: 10/14/22 PRE-OP DIAGNOSIS: Hx oc colon cancer, Abnormal CT scan, Increasing CEA PROCEDURE: 1. EGD with biopsies 2. Flexible Sigmoidoscopy SURGEON: Lorena Toney ANESTHESIA TYPE: General:No Airway ESTIMATED BLOOD LOSS: 10 PATHOLOGY: other (Bx of antrum, body and GE junction. Bx of mass at 15 and 30 cm) COMPLICATIONS: None DISPOSITION: same day INDICATIONS: The patient? is a pleasant ? 72-year-old female who is here to discuss another screening colonoscopy. ? She was diagnosed with Stage III colon cancer in 2019 and underwent resection, chemo and radiation. She underwent another Colonoscopy last year which was normal. She had a CT scan recently that showed some thickening of the stomach. Her CEA is rising and she is anemic.? She denies any changes in bowel habits, melena, hematochezia, unintentional weight loss or family history of colon cancer.? The procedure and risks were discussed.? The prep was reviewed in detail.? Risks, benefits and complications have been reviewed. Complications include but are not limited to bleeding, pain, perforation, missed small lesion/polyp, sore throat, aspiration and adverse reaction to the medications. Questions were entertained and answered to their satisfaction and they wished to proceed. No guarantees were given or implied. PREP: Miralax/Dulcolax PROCEDURE DESCRIPTION: After informed consent was obtained the patient was take to the procedure room and placed in a supine position. Monitors were applied and a time out was done. The patients name, date of , procedure type, allergies to medications and metal in their body was reviewed. A bite block was placed and the patient was sedated. Once sedated and comfortable the gastroscope was advanced through the oropharynx which was grossly normal into the esophagus. The proximal and mid- esophagus were normal. In the distal esophagus there was evidence of reflux noted. The scope was advanced into the stomach and through the pylorus into the 3rd portion of the duodenum. The duodenum was noted to be normal. The scope was retracted back into the stomach. There was moderate inflammation noted in the antrum and body. Biopsies were done to rule out H. pylori. There were no ulcers. The scope was retro-flexed. The cardia and fundus were noted to be normal. There was no hiatal hernia noted. The scope was retracted back into the esophagus and biopsies were done of the GE junction to rule out Feldman's. The Z line was regular. The GE junction was at 35 cm. While the patient was still sedated they were placed in a left decubitous position. A rectal exam was done. External exam was normal. Internal exam revealed a decreased sphincter tone and no palpable masses. The scope was then introduced and retro-flexed. No internal hemorrhoids, masses or polyps were identified on retroflexion. The scope was then advanced to 30 cm were there was a friable mass noted. This was biopsied and the area was tattooed. The scope could not pass past the mass even though there was no obvious obstruction. The scope was then retracted down to 15 cm were there was another mass noted that was friable. The area was biopsied and tattoed. The scope was removed and the patient was woken up and taken back to Same day surgery in stable condition. The patient tolerated the procedure well and there were no immediate complications.
--- NOTE | 2022-10-14 06:32 | W.PM.DSUDISC ---
Date of service: 10/14/22 Time of Service: 11:16 Discharge Plan Disposition Patient Disposition: HOME Condition: Good Discharge Details Reason For Visit: [place]/EGD Attending Provider: Lorena Toney Primary Care Provider: Shayan Headley [facility] and New Rx's Prescriptions: New pantoprazole [Protonix] 40 mg tablet,delayed release (DR/EC) 40 mg PO DAILY Qty: 90 3RF Continued lorazepam [Ativan] 1 mg tablet 1 mg PO ONCE PRN (Reason: anxiety) Qty: 1 0RF Rx Instructions: Take the morning of your procedure with a sip of water fluticasone propionate [Flovent HFA] 44 mcg/actuation HFA aerosol inhaler 2 puff inhalation BID PRN Rx Instructions: administer with spacer hydrocodone-acetaminophen 5-325 mg tablet 1 tab PO QHS PRN hydroxyzine HCl 10 mg tablet 10 mg PO QHS prochlorperazine maleate 5 mg tablet 10 mg PO Q6H PRN tramadol 50 mg tablet 50 mg PO Q8H PRN albuterol sulfate [Ventolin HFA] 90 mcg/actuation HFA aerosol inhaler 2 puff inhalation Q6H PRN cyclobenzaprine 5 mg tablet 5 mg PO QHS PRN lansoprazole 30 mg capsule,delayed release(DR/EC) 30 mg PO DAILY lidocaine-prilocaine 2.5-2.5 % cream 1 applic topical ONCE PRN ondansetron HCl 4 mg tablet 4 mg PO Q8H PRN prochlorperazine 25 mg suppository 25 mg [place] Q12H PRN pseudoephedrine HCl 30 mg tablet 30 mg PO Q6H PRN rizatriptan 10 mg tablet See Rx Instructions PO .COMPLEX Rx Instructions: take 1 tab at onset of headache; if no relief may repeat 1 tab after at least 2 hrs; max = 3 tabs/24 hr PO triamcinolone acetonide 0.5 % cream 1 applic topical DAILY levothyroxine [Synthroid] 112 MCG tablet 150 mcg PO DAILY gabapentin 300 mg Tablet 300 mg PO TID fluoxetine 40 MG capsule 80 mg PO DAILY zolpidem 5 MG tablet 5 mg PO .QHS risperidone 0.5 MG tablet 0.5 mg PO TID methylphenidate HCl 20 mg tablet 20 mg PO TID PRN Label Comments: TK 1 T PO TID PRN acetaminophen 500 mg Tablet 1,000 mg PO BID Discharge Instructions Instructions: Gastritis (DC) Additional Instructions: Findings: Inflammation of the stomach 2 new large polyps in the colon. These look like cancer Follow up: I will call you with results and then we will make a plan Please call if you develop: fevers >101.5 Nausea or Vomiting Abdominal pain that is not transient Rectal bleeding that is more then a tbsp A hard abdomen and inability to pass gas DAY SURGERY UNIT POST ENDOSCOPY INSTRUCTIONS Instructions for everyone who is given Anesthesia: For your safety, please do the following for the next 24 Hours: a. Do not drive or operate dangerous equipment b. Do not drink alcohol beverages or use any recreational drugs for the first 24 hours or while taking pain medications. The medications in your body may have a reaction that can be dangerous. c. Do not make any important decisions or sign any important papers 1. Generally there are no restrictions on your activity after a day or so has gone by, but you may feel a bit fatigued for a few days. 2. After you arrive home you may have a light meal and return to a normal diet as you can tolerate it without feeling sick to your stomach. 3. After surgery, you may feel pain or discomfort. This should be only transient, but if it persists please contact your doctor. 4. If there are any questions regarding the findings of your procedure, please feel free to contact your doctor. 6. If you are unable to contact your doctor with a problem, contact the hospital at [phone]. 7. Continue all your regular medications unless directed otherwise. I understand the above instructions and have no questions. Signature of Patient or Responsible Adult Escort Date/Time Name of Responsible Adult Escort Signature of Nurse Date/Time Activity:: Activity as Tolerated Diet:: As Tolerated
[2022-10-14 08:42] VITALS: BP 133/66; PULSE 90; RESP 20; TEMP 36.7; O2SAT 95
[2022-10-14] MEDS: Normal Saline-STERILE FIELD 0.9% 10 ML SYR (09:08)
[2022-10-14] MEDS: Lactated Ringers 1,000 ML 80 ML IV (09:08)
--- NOTE | 2022-10-14 09:46 | W.ANESPRE ---
General Info Date of Service Date Performed: 10/14/22 Height: 5 ft 3 in Weight: 106.4 kg Body Mass Index (BMI): 41.5 Surgical Procedure: Operation Date: 10/14/22 10:05 Proposed Procedure Side Surgeon p Colonoscopy/Gastroscopy Lorena Toney MD Meds Allergies and Home Medications Allergies Allergy/AdvReac Type Severity Reaction Status Date / Time iodine Allergy Severe Anaphylaxis Verified 10/14/22 08:31 niacin Allergy Unknown Skin Rash Verified 10/14/22 08:31 codeine Allergy MULLINS Verified 10/14/22 08:31 Penicillins AdvReac Severe Dizziness/L Verified 10/14/22 08:31 ightheade cortisone AdvReac Intermediate Psychosis Verified 10/14/22 08:31 meperidine [From Demerol] AdvReac Intermediate Visual Verified 10/14/22 08:31 Disturbances Sulfa (Sulfonamide AdvReac Intermediate Nausea Verified 10/14/22 08:31 Antibiotics) NSAIDS (Non-Steroidal AdvReac Verified 10/14/22 08:31 Anti-Inflamma Home Medication Medication Instructions Recorded levothyroxine 112 mcg tablet 150 mcg PO DAILY 02/15/17 (Synthroid) fluoxetine 40 mg capsule 80 mg PO DAILY 05/02/17 risperidone 0.5 mg tablet 0.5 mg PO TID 05/02/17 zolpidem 5 mg tablet 5 mg PO .QHS 05/02/17 methylphenidate HCl 20 mg tablet 20 mg PO TID PRN 07/15/20 acetaminophen 500 mg tablet 1,000 mg PO BID 08/09/20 albuterol sulfate 90 mcg/actuation 2 puff inhalation Q6H PRN 09/16/21 aerosol inhaler (Ventolin HFA) fluticasone propionate 44 2 puff inhalation BID PRN 09/16/21 mcg/actuation HFA aerosol inhaler (Flovent HFA) hydrocodone 5 mg-acetaminophen 325 1 tab PO QHS PRN 09/16/21 mg tablet hydroxyzine HCl 10 mg tablet 10 mg PO QHS 09/16/21 prochlorperazine maleate 5 mg 10 mg PO Q6H PRN 09/16/21 tablet tramadol 50 mg tablet 50 mg PO Q8H PRN 09/16/21 cyclobenzaprine 5 mg tablet 5 mg PO QHS PRN 10/30/21 lansoprazole 30 mg capsule,delayed 30 mg PO DAILY 10/30/21 release lidocaine-prilocaine 2.5 %-2.5 % 1 applic topical ONCE PRN 10/30/21 topical cream ondansetron HCl 4 mg tablet 4 mg PO Q8H PRN 10/30/21 prochlorperazine 25 mg rectal 25 mg SC Q12H PRN 10/30/21 suppository pseudoephedrine HCl 30 mg tablet 30 mg PO Q6H PRN 10/30/21 rizatriptan 10 mg tablet See Rx Instructions PO .COMPLEX 10/30/21 triamcinolone acetonide 0.5 % 1 applic topical DAILY 10/30/21 topical cream lorazepam 1 mg tablet (Ativan) 1 mg PO ONCE PRN anxiety #1 tab 09/18/22 gabapentin 300 mg tablet 300 mg PO TID 10/13/22 Current Visit Medications: Current Medications Generic Name Dose Route Start Last Admin Trade Name Freq PRN Reason Stop Dose Admin Hyoscyamine Sulfate 0.125 mg 10/14/22 06:33 Hyoscyamine 0.125 Mg Sl/Oral/Chew SL DIRECTED PRN Ringer's Solution 1,000 mls @ 80 mls/hr 10/14/22 06:00 10/14/22 09:08 IV 11/12/22 23:59 80 mls/hr INFUSION MARCO ANTONIO Administration IV Miscellaneous Supplies 1 each 10/14/22 06:00 Iv Access IV 11/12/22 23:59 DIRECTED MARCO ANTONIO Ondansetron HCl 4 mg 10/14/22 06:33 Ondansetron 4 Mg/2 Ml Vial IVP Q4H PRN PRN Nausea / Vomiting Sodium Chloride 0 ml 10/14/22 06:00 Normal Saline Flush 10 Ml Syr IV 11/12/22 23:59 PRN PRN Sodium Chloride 0 ml 10/14/22 06:00 Normal Saline 10 Ml Vial IJ 11/12/22 23:59 DIRECTED PRN Sterile Water 0 ml 10/14/22 06:00 Water,Injection,Sterile 10 Ml Vial IJ 11/12/22 23:59 DIRECTED PRN PFSH Active Problems Active Problems: Problem Status Onset Code Elevated CEA R97.0 Anemia D64.9 Elevated cholesterol E78.00 Colon cancer, ascending C18.2 PA (dyspnea on exertion) R06.00 Obesity E66.9 Iron deficiency anemia D50.9 Medical History Medical History Anxiety Asthma Depression Dissociative identity disorder Epistaxis, recurrent GERD (gastroesophageal reflux disease) Hx of small bowel obstruction Hyperlipidemia Hypertension Hypothyroidism Knee arthropathy Migraine headache Primary osteoarthritis of left knee Steroid injection: 09/25/2021 Primary osteoarthritis of right knee Steroid injection: 09/25/2021 PTSD (post-traumatic stress disorder) Stage III carcinoma of colon (~08/06/20) Thrombocythemia Surgical History Surgical History History of arthroscopy of right knee History of cholecystectomy History of colonoscopy (~10/2021) History of tonsillectomy S/P right hemicolectomy S/P right rotator cuff repair Tobacco Smoking/Tobacco Use Status: Former Tobacco Use Alcohol Alcohol Intake: former Substance Use Substance use: Occasionally Substance use type: marijuana Vital Signs and Lab Results Vital Signs Most Recent Vital Signs in EMR: Most Recent Vital Signs Temp Pulse Resp BP Pulse Ox 36.7 C 90 20 133/66 95 10/14/22 08:42 10/14/22 08:42 10/14/22 08:42 10/14/22 08:42 10/14/22 08:42 Lab Results Blood Type / Crossmatch: No Data to Display Complete Blood Count: No Data to Display Complete Metabolic Panel: No Data to Display Liver Function Panel: No Data to Display Coagulation Panel: No Data to Display Cardiac Panel: No Data to Display Arterial Blood Gas: No Data to Display Venous Blood Gas: No Data to Display Pancreas Panel: No Data to Display Thyroid Panel: No Data to Display Infectious Disease: No Data to Display Blood Cultures: No Data to Display Toxicology Panel: No Data to Display Anesthesia Assessment and Plan Anesthesia History Personal History: No History of Anesthesia Complications Family History: No Family History of Anesthesia Complications Exercise Tolerance Exercise Tolerance: Metabolic Equivalents>4 Pertinent Negatives Pertinent Negatives: No Symptoms of GERD (Somewhat controlled with medication ), No Major Cardiovascular Symptoms or Complaints and No Major Pulmonary Symptoms or Complaints (Occassional marijuana) Cardiac & Pulmonary Exam Cardiac Exam: Normal S1/S2 Heart Sounds Pulmonary Exam: Clear Bilateral Breath Sounds Implantable Cardiac Device Does patient have a Pacemaker or an ICD?: No Airway Exam Known Difficult Airway: No Mallampati Class: 3 Mouth Opening: Normal (> 3cm) Thyromental Distance: Greater than 3 cm Neck Range of Motion: Full ROM Neck Circumference: Normal Teeth Condition: Normal Dentition ASA Classification ASA Score: ASA 3 Emergency Case?: No NPO Status NPO Status: NPO Clears >2 hours, Solids >8 hours Anesthesia Plan Resuscitation Status: Full Code Anesthesia Technique: General Anesthesia Airway Planned: Natural Airway Monitors Used: Standard Monitors
[2022-10-14 09:50] VITALS: BMI 41.5
--- NOTE | 2022-10-14 10:20 | STOM_PTH ---
PATIENT: Maryjo Whiteside LOC: [facility] U#:[id number] AGE/SX: 72/F ROOM: RE10/14/[address]: Lorena Toney MD : 1950 BED: DIS: 10/14/2022 SPEC #: [id number] RECD: 10/14/22 12:54 STATUS: JAYLAInder REQ #: [id number] ZAK: 10/14/22 10:[address]: Lorena Toney DEPT: Surgical Specimen RECD BY: Sary Barnes ENTERED: 10/14/22 12:56 SP TYPE: STOMACH OTHR DR: Shayan Headley Tissues: 1 - STOMACH BIOPSY 2 - STOMACH BIOPSY 3 - ESOPHAGUS BIOPSY 4 - BIOPSY BOWEL 5 - BIOPSY BOWEL Procedures: GROSS AND MICRO LEVEL 4 Comments: [id number]
[2022-10-14] MEDS: Endoscopic Tattoo 5 ML SYR IJ (10:35)
[2022-10-14 10:55] VITALS: BP 107/52; PULSE 75; RESP 18; TEMP 36.7; O2SAT 96
--- NOTE | 2022-10-14 10:57 | W.ANESPOSTOP ---
Postoperative Evaluation Date, Time and Location Date Performed: 10/14/22 Time Performed: 10:58 Patient Location: Day Surgery Unit Vital Signs Most Recent Imported Vital Signs: Most Recent Vital Signs Temp Pulse Resp BP Pulse Ox 36.7 C 90 20 133/66 95 10/14/22 08:42 10/14/22 08:42 10/14/22 08:42 10/14/22 08:42 10/14/22 08:42 Most Recent Manually Entered Vital Signs: Adult Blood Pressure: 107/52 Heart Rate: 75 Respirations: 12 Oxygen Saturation (%): 98 Temperature (C): 36.3 C Pain Score (0-10 Scale): 0 Pain Score Most Recent Pain Score: Most Recent Pain Score Pain Level 0 10/14/22 08:42 Assessment Mental Status: Awake (Alert & Oriented to Patient Baseline) Airway and Respiratory Function: Patent airway with normal (patient baseline) respiratory exam Cardiovascular Function: Hemodynamically Stable Hydration Status: Adequately Hydrated Nausea & Vomiting: No Nausea or Vomiting Pain: Pt. Denies Any Pain Peripheral Nerve Block: Patient did not receive a nerve block
[2022-10-14 10:58] VITALS: BP 107/52; PULSE 75; RESP 12; TEMPC 36.3; O2SAT 98
[2022-10-14 11:25] VITALS: BP 122/95; PULSE 84; RESP 20; TEMP 37; O2SAT 96
== END 2022-10-14 12:40 | disposition home or self-care (01) ==
PROVIDERS: PCP Neuromusculoskeletal Medicine & OMM; Visit Provider Surgery
PROC: (CPT 43239; principal; 2022-10-14 10:00)
DX: Z12.11 Encounter for screening for malignant neoplasm of colon (principal); Z85.038 Personal history of other malignant neoplasm of large intestine; K63.89 Other specified diseases of intestine; R97.0 Elevated carcinoembryonic antigen [CEA]; D64.9 Anemia, unspecified; K21.9 Gastro-esophageal reflux disease without esophagitis; K29.70 Gastritis, unspecified, without bleeding; D01.0 Carcinoma in situ of colon
CPT/HCPCS: 43239; 45331; 45335; 36593; 88305; J3490

== ENCOUNTER → 2022-10-28 14:32 | Outpatient (BNVA) | payer MEDICARE, SELFPAY | PROVIDERS: PCP Neuromusculoskeletal Medicine & OMM; Referring Provider Neuromusculoskeletal Medicine & OMM; Visit Provider Surgery | DX: Z91.89 Other specified personal risk factors, not elsewhere classified (principal); Z85.038 Personal history of other malignant neoplasm of large intestine | CPT/HCPCS: 99213 ==

== ENCOUNTER 2022-12-15 02:36 | Outpatient (RCR) | payer MEDICARE, SELFPAY ==
[2022-12-15] MEDS: Normal Saline Flush 10 ML SYR IVP (14:32)
[2022-12-15] MEDS: Heparin 500 UNITS/5 ML SYRINGE IV (14:33)
[2022-12-15 14:45] LABS: Abs Immature Grans 0.01 10^3/uL (0.0-0.06); Absolute Basophil Count 0.03 10^3/uL (0.0-0.2); Absolute Eosinophil Count 0.21 10^3/uL (0.0-0.7); Absolute Lymphocyte Count 1.31 10^3/uL (1.2-3.4); Absolute Monocyte Count 0.63 10^3/uL (0.1-0.8); Basophils % 0.5; Eosinophils % 3.8; HCT 39.9 % (36.0-46.0); HGB 12.9 g/dL (11.2-15.7); Immature Grans % 0.2; Lymphocytes % 23.9; MCH 29.8 pg (27.0-33.0); MCHC 32.3 % (32.0-36.0); MCV 92 fL (80-95); MPV 8.4 fL (8.0-11.0); Monocytes % 11.5; Neutrophils % 60.1; Platelet Count 377 10^3/uL (130-400); RBC 4.33 10^6/uL (3.93-5.22); RDW 12.2 % (11.7-14.6); RDW-SD 41.5 fL; WBC 5.49 10^3/uL (4.4-10.8)
[2022-12-15 15:04] LABS: ALT 21 U/L (14-59); AST 18 U/L (15-37); Albumin 3.2 g/dL (3.4-5.0); Alkaline Phosphatase 82 U/L (46-116); Anion Gap 10.3 mmol/L (3-11); BUN 20 mg/dL (7-18); Bilirubin, Total 0.3 mg/dL (0.2-1.0); CO2 24.7 mmol/L (21.0-32.0); CREATININE 0.9 mg/dL (0.55-1.02); Calcium 9.5 mg/dL (8.5-10.1); Chloride 106 mmol/L (98-107); Estimated GFR 67.92 (mL/min/1.73m2); Glucose 100 mg/dL (74-106); Potassium 4.2 mmol/L (3.5-5.1); Sodium 141 mmol/L (136-145); Total Protein 7.3 g/dL (6.4-8.2)
== END 2022-12-15 23:59 | disposition home or self-care (01) ==
LOC: INF 02:36
PROVIDERS: PCP Neuromusculoskeletal Medicine & OMM; Visit Provider Internal Medicine
DX: C18.9 Malignant neoplasm of colon, unspecified (principal); Z45.2 Encounter for adjustment and management of vascular access device
CPT/HCPCS: 36415; 80053; 96523; 85025

== ENCOUNTER → 2022-12-31 13:54 | Outpatient (BNVA) | payer MEDICARE, SELFPAY | PROVIDERS: PCP Neuromusculoskeletal Medicine & OMM; Referring Provider Neuromusculoskeletal Medicine & OMM; Visit Provider Surgery | DX: C18.7 Malignant neoplasm of sigmoid colon (principal) | CPT/HCPCS: 99214 ==

== ENCOUNTER 2023-01-06 13:00 | Outpatient (RCR) | payer MEDICARE, SELFPAY ==
[2023-01-06] MEDS: Alteplase 2 MG VIAL (12:40)
[2023-01-06] MEDS: Normal Saline Flush 10 ML SYR IVP (13:10)
[2023-01-06] MEDS: Heparin 500 UNITS/5 ML SYRINGE IV (13:10)
== END 2023-01-12 23:59 | disposition home or self-care (01) ==
LOC: INF 13:00
PROVIDERS: PCP Neuromusculoskeletal Medicine & OMM; Visit Provider Internal Medicine
DX: Z01.818 Encounter for other preprocedural examination (principal)
CPT/HCPCS: 86850; 86900; 86901; J2997

== ENCOUNTER 2023-01-08 12:09 | Inpatient (IN) | payer MEDICARE, SELFPAY ==
--- NOTE | 2023-01-07 19:50 | ROE_ITS ---
Date of service: 01/08/23 Time of Service: 12:18 Operative Note Operative Note DATE OF PROCEDURE: 01/08/23 PRE-OP DIAGNOSIS: Colon cancer POST-OP DIAGNOSIS: same PROCEDURE: Completion colectomy with creation of end ileostomy SURGEON: Kye Partida [employer] DISPATCHER: Halie Jeff ANESTHESIA TYPE: Local By Surgeon, General LMA/ETT and Other (Bilateral tap blocks) Refer to Anesthesia Record ESTIMATED BLOOD LOSS: 200 PATHOLOGY: other (Colon, peritoneal implant from right lower quadrant) COMPLICATIONS: None Patient was transported to: PACU Patient's condition: stable Indications: Maryjo is a 72-year-old woman with a past medical history of an ascending colon cancer. She underwent right hemicolectomy followed by chemotherapy. During her surveillance colonoscopies, she was found to have 2 more lesions. Both were biopsy confirmed adenocarcinoma's. She is here for completion colectomy and creation of a permanent end ileostomy Findings: Sigmoid colon tumor, and rectal tumor with extension into the pelvic floor and posterior uterus. Procedure Description: After establishing general endotracheal anesthesia, the anesthesia specialist performed bilateral ultrasound-guided tap blocks. Morton urinary catheter was used to decompress the bladder. next, I prepped and draped the abdomen in the usual fashion. I then anesthetized the midline skin with local anesthetic. I made an longitudinal midline incision. I dissected down to the fascia which I incised along the length of the incision. I then opened the peritoneum as well. I performed a brief examination of the peritoneal cavity. The liver appeared normal and healthy. There was no disseminated carcinomatosis, but there was a firm, dense, contracted mass in the anterior portion of the right pelvic floor. I sharply excised this specimen. I then began dissecting the colon. I turned my attention to the ileocolic anastomosis from previous surgery. This was in the right upper quadrant. I mobilized the anastomosis towards the midline by lysing adhesions. Once this was elevated in the operative field, I dissected the greater omentum off the transverse colon and reflected it towards the stomach. Once this was complete, I found a suitable location towards the end of the ileum to serve as the division point and the planned ileostomy. I made a small defect in the mesenteric border, and divided the small intestine with a single fire of the DANIKA stapler. Next, using the LigaSure, I divided the remaining mesentery of the very distal small bowel, and carried the dissection up along the transverse colon. I continued dividing the transverse colon up t owards the splenic flexure. Next, I turned my attention to mobilizing the descending colon. I incised the white line of Toldt, and dissected the mesocolon off of the retroperitoneum. I continued this dissection cephalad towards the splenic flexure completing the mobilization of the transverse colon. Next, I continued dividing the mesocolon with sequential fires of the LigaSure. I carried this dissection down to the sigmoid colon. At this point, I incised the lateral attachments of the sigmoid colon and mobilized it up onto its mesentery. There were several adhesions along the pelvic floor. As I brought the dissection down onto the distal sigmoid and onto the proximal rectum, it started to become apparent that the distal tumor was densely adhered to the pelvic floor, and the posterior aspect of the uterus. I carried this dissection as low as I safely could into the pelvic floor, but there remained several thick adhesions, and what I suspect is extension of the tumor into the anterior portion of the pelvis. At this point, it was clear I would not be able to obtain a safe distal margin within the floor of the pelvis, and I felt the safest thing to do was complete the dissection and division of the rectum to maximize operative safety. Therefore, after dividing the posterior aspect of the mesorectum, I divided the rectum with a TA stapler. The colon and proximal rectum were passed off the field as a single specimen. There was a small amount of bleeding from the pelvic floor adjacent to the division, that I was able to control with stitches. Next, I irrigated the pelvic floor. I examined it carefully. Rectal staple line looked fine. Placed a surgical drain in the pelvis and brought it out through a separate stab incision in the left lower quadrant. Next, I turned my attention to maturation of the end ileostomy. I carefully examined the peritoneal cavity. There were no sponges, and instrument counts were correct. I gently mobilize some of the small bowel mesentery to ensure appropriate length for the end ileostomy. I then found a suitable location towards the right upper quadrant, and created a small circular incision on the skin. I dissected down to the fascia and incised it in a cruciate fashion. I gently delivered the ileum up to the anterior abdominal wall taking great care to ensure that the mesentery was not twisted, and the remainder of the small bowel was appropriately oriented. Next, I closed the midline fascia with running PDS sutures. The overlying skin and soft tissues were irrigated, and the skin was closed with surgical roque. I then excised the staple line on the end of the ileum, and matured the ileostomy with interrupted Vicryl stitches. The stoma device was applied, the external skin was washed, and a caitlin negative pressure wound dressing was used for the midline wound. Surgical drain was affixed in place with a stitch, and placed a closed suction drainage. The patient was then awakened from anesthesia and transferred to the recovery unit.
--- NOTE | 2023-01-07 19:53 | W.PM.HP.N ---
Date of service: 01/08/23 Time of Service: 07:20 Assessment and Plan Assessment and plan (1) Colon cancer: Status: Chronic Assessment and plan: Total abdominal colectomy today with creation of end ileostomy. History of Present Illness History of Present Illness Chief Complaint: Colon cancer Narrative: Maryjo is a 72 year old woman who previously underwent right hemicolectomy for colon cancer. She was undergoing surveillance colonoscopy when 2 more lesions were discovered. These are both biopsy confirmed adenocarcinoma. PFSH All Active Problems (Updated 01/08/23 @ 17:45 by Kye Partida MD) Colon cancer (Chronic) PA (dyspnea on exertion) (Acute) Obesity (Chronic) Iron deficiency anemia (Acute) Elevated cholesterol (Chronic) Anemia (Chronic) Medical History (Updated 01/08/23 @ 17:45 by Kye Partida MD) Anxiety Asthma Cecum mass Colon cancer high risk Colon cancer, ascending Depression Dissociative identity disorder Elevated CEA Epistaxis, recurrent GERD (gastroesophageal reflux disease) Hx of small bowel obstruction Hyperlipidemia Hypertension Hypothyroidism Knee arthropathy Migraine headache Primary osteoarthritis of left knee Steroid injection: 09/25/2021 Primary osteoarthritis of right knee Steroid injection: 09/25/2021 PTSD (post-traumatic stress disorder) Per pt. states no current triggers Stage III carcinoma of colon (~08/06/20) Thrombocythemia Surgical History History of arthroscopy of right knee History of cholecystectomy History of colonoscopy (~10/2021) History of tonsillectomy S/P right hemicolectomy S/P right rotator cuff repair Social History Smoking/Tobacco Use Status: Former Tobacco Use Quit Date: 11/15/65 Smoking risk assessment performed?: Yes Alcohol Intake: former Drug use: Occasionally Substance use type: marijuana Do you feel safe at home: Yes Do you feel safe in your relationship?: Yes Meds Allergies and Home Medications Allergies Allergy/AdvReac Type Severity Reaction Status Date / Time iodine Allergy Severe Anaphylaxis Verified 01/08/23 06:40 niacin Allergy Unknown Skin Rash Verified 01/08/23 06:40 codeine Allergy MULLINS Verified 01/08/23 06:40 Penicillins AdvReac Severe Dizziness/L Verified 01/08/23 06:40 ightheade cortisone AdvReac Intermediate Psychosis Verified 01/08/23 06:40 meperidine [From Demerol] AdvReac Intermediate Visual Verified 01/08/23 06:40 Disturbances Sulfa (Sulfonamide AdvReac Intermediate Nausea Verified 01/08/23 06:40 Antibiotics) Home Medications Medication Instructions Recorded Confirmed Type fluoxetine 40 mg capsule 80 mg PO DAILY 05/02/17 01/08/23 History risperidone 0.5 mg tablet 0.5 mg PO BID 05/02/17 01/08/23 History zolpidem 5 mg tablet 5 mg PO .QHS 05/02/17 01/08/23 History methylphenidate HCl 20 mg tablet 20 mg PO TID PRN 07/15/20 01/08/23 History acetaminophen 500 mg tablet 1,000 mg PO BID 08/09/20 01/08/23 History albuterol sulfate 90 mcg/actuation 2 puff inhalation Q6H PRN 09/16/21 01/08/23 History aerosol inhaler (Ventolin HFA) hydrocodone 5 mg-acetaminophen 325 1 tab PO QHS PRN 09/16/21 01/08/23 History mg tablet prochlorperazine maleate 5 mg 10 mg PO Q6H PRN 09/16/21 01/08/23 History tablet tramadol 50 mg tablet 50 mg PO Q8H PRN 09/16/21 01/08/23 History cyclobenzaprine 5 mg tablet 0 mg PO HS PRN PRN 10/30/21 01/08/23 History ondansetron HCl 4 mg tablet 4 mg PO Q8H PRN 10/30/21 01/08/23 History prochlorperazine 25 mg rectal 25 mg CO Q12H PRN 10/30/21 01/08/23 History suppository pseudoephedrine HCl 30 mg tablet 30 mg PO Q6H PRN 10/30/21 01/08/23 History rizatriptan 10 mg tablet See Rx Instructions PO .COMPLEX 10/30/21 01/08/23 History triamcinolone acetonide 0.5 % 1 applic topical DAILY 10/30/21 01/08/23 History topical cream pantoprazole 40 mg tablet,delayed 40 mg PO DAILY #90 tabs 10/14/22 01/08/23 Rx release (Protonix) bisacodyl 5 mg tablet,delayed 5 mg PO ONCE colonscopy bowel prep 12/31/22 01/08/23 Rx release (Dulcolax (bisacodyl)) #8 tabs levothyroxine 150 mcg capsule 300 mcg PO DAILY 12/31/22 01/08/23 History metronidazole 500 mg tablet 500 mg PO .COMPLEX #8 tabs 12/31/22 01/08/23 Rx neomycin 500 mg tablet 500 mg PO Q8H #8 tabs 12/31/22 01/08/23 Rx ondansetron HCl 8 mg tablet 8 mg PO .COMPLEX #3 tabs 12/31/22 01/08/23 Rx polyethylene glycol 3350 17 238 g PO ONCE colonoscopy prep 12/31/22 01/08/23 Rx gram/dose oral powder #238 grams lorazepam 1 mg tablet (Ativan) 0.5 mg PO Q6H PRN PRN anxiety #5 01/05/23 01/08/23 Rx tabs fluticasone propionate 44 44 mcg inhalation QAM 01/08/23 01/08/23 History mcg/actuation HFA aerosol inhaler (Flovent HFA) gabapentin 600 mg tablet 600 mg PO TID 01/08/23 01/08/23 History levothyroxine 150 mcg tablet 300 mcg PO DAILY@0600 01/08/23 01/08/23 History Exam Const General: cooperative and comfortable Orientation: alert, awake and oriented x3 Resp Effort & Inspection: normal respiratory effort Auscultation: clear to auscultation bilaterally GI Inspection: normal to inspection Palpation: soft, no hernias and nontender Time Spent Time spent with Patient: <40 minutes Time was spent: preparing to see the patient(eg.review tests) and counseling the patient
[2023-01-08] VITALS (22 sets, daily range): BP systolic 86–166; BP diastolic 44–88; PULSE 57–112; RESP 12–22; TEMP 36.2–37.2; O2SAT 93–100; BMI 41.6
[2023-01-08 06:19] LABS: Source Nasal/Nares
[2023-01-08 06:49] LABS: COVID-19 PCR Negative (Negative)
--- NOTE | 2023-01-08 06:56 | W.ANESPRE ---
General Info Date of Service Date Performed: 01/08/23 Height: 5 ft 3 in Weight: 106.594 kg Body Mass Index (BMI): 41.6 Surgical Procedure: Operation Date: 01/08/23 07:50 Proposed Procedure Side Surgeon p Abdominal Colectomy w/Creation End Ileostomy Kye Partida MD Meds Allergies and Home Medications Allergies Allergy/AdvReac Type Severity Reaction Status Date / Time iodine Allergy Severe Anaphylaxis Verified 01/08/23 06:40 niacin Allergy Unknown Skin Rash Verified 01/08/23 06:40 codeine Allergy MULLINS Verified 01/08/23 06:40 Penicillins AdvReac Severe Dizziness/L Verified 01/08/23 06:40 ightheade cortisone AdvReac Intermediate Psychosis Verified 01/08/23 06:40 meperidine [From Demerol] AdvReac Intermediate Visual Verified 01/08/23 06:40 Disturbances Sulfa (Sulfonamide AdvReac Intermediate Nausea Verified 01/08/23 06:40 Antibiotics) Home Medication Medication Instructions Recorded fluoxetine 40 mg capsule 80 mg PO DAILY 05/02/17 risperidone 0.5 mg tablet 0.5 mg PO TID 05/02/17 zolpidem 5 mg tablet 5 mg PO .QHS 05/02/17 methylphenidate HCl 20 mg tablet 20 mg PO TID PRN 07/15/20 acetaminophen 500 mg tablet 1,000 mg PO BID 08/09/20 albuterol sulfate 90 mcg/actuation 2 puff inhalation Q6H PRN 09/16/21 aerosol inhaler (Ventolin HFA) fluticasone propionate 44 2 puff inhalation BID PRN 09/16/21 mcg/actuation HFA aerosol inhaler (Flovent HFA) hydrocodone 5 mg-acetaminophen 325 1 tab PO QHS PRN 09/16/21 mg tablet prochlorperazine maleate 5 mg 10 mg PO Q6H PRN 09/16/21 tablet tramadol 50 mg tablet 50 mg PO Q8H PRN 09/16/21 cyclobenzaprine 5 mg tablet 5 mg PO QHS PRN 10/30/21 ondansetron HCl 4 mg tablet 4 mg PO Q8H PRN 10/30/21 prochlorperazine 25 mg rectal 25 mg PA Q12H PRN 10/30/21 suppository pseudoephedrine HCl 30 mg tablet 30 mg PO Q6H PRN 10/30/21 rizatriptan 10 mg tablet See Rx Instructions PO .COMPLEX 10/30/21 triamcinolone acetonide 0.5 % 1 applic topical DAILY 10/30/21 topical cream pantoprazole 40 mg tablet,delayed 40 mg PO DAILY #90 tabs 10/14/22 release (Protonix) bisacodyl 5 mg tablet,delayed 5 mg PO ONCE colonscopy bowel prep 12/31/22 release (Dulcolax (bisacodyl)) #8 tabs gabapentin 300 mg tablet 600 mg PO TID 12/31/22 levothyroxine 150 mcg capsule 300 mcg PO DAILY 12/31/22 metronidazole 500 mg tablet 500 mg PO .COMPLEX #8 tabs 12/31/22 neomycin 500 mg tablet 500 mg PO Q8H #8 tabs 12/31/22 ondansetron HCl 8 mg tablet 8 mg PO .COMPLEX #3 tabs 12/31/22 polyethylene glycol 3350 17 238 g PO ONCE colonoscopy prep 12/31/22 gram/dose oral powder #238 grams lorazepam 1 mg tablet (Ativan) 0.5 mg PO Q6H PRN PRN anxiety #5 01/05/23 tabs Current Visit Medications: Current Medications Generic Name Dose Route Start Last Admin Trade Name Freq PRN Reason Stop Dose Admin Acetaminophen 1,000 mg 01/08/23 06:00 Acetaminophen 500 Mg Tab PO 01/08/23 16:00 PREOP MARCO ANTONIO Celecoxib 200 mg 01/08/23 06:00 Celecoxib 200 Mg Cap PO 01/08/23 16:00 PREOP MARCO ANTONIO Gabapentin 300 mg 01/08/23 06:00 Gabapentin 300 Mg Cap PO 01/08/23 16:00 PREOP [facility] Heparin Sodium (Porcine) 5,000 units 01/08/23 06:00 Heparin 5,000 Units/Ml Vial SC 01/08/23 16:00 PREOP [facility] Ringer's Solution 1,000 mls @ 80 mls/hr 01/08/23 06:00 IV 02/06/23 23:59 INFUSION [facility] Cefazolin Sodium/Dextrose 2 gm in 50 mls @ 100 mls/hr 01/08/23 06:00 Ancef Duplex IVPB 01/08/23 16:00 PREOP [facility] IV Miscellaneous Supplies 1 each 01/08/23 06:00 Iv Access IV 02/06/23 23:59 DIRECTED MARCO ANTONIO Sodium Chloride 0 ml 01/08/23 06:00 Normal Saline Flush 10 Ml Syr IV 02/06/23 23:59 PRN PRN Sodium Chloride 0 ml 01/08/23 06:00 Normal Saline 10 Ml Vial IJ 02/06/23 23:59 DIRECTED PRN Sterile Water 0 ml 01/08/23 06:00 Water,Injection,Sterile 10 Ml Vial IJ 02/06/23 23:59 DIRECTED PRN PFSH Active Problems Active Problems: Problem Status Onset Code Colon cancer, ascending C18.2 PA (dyspnea on exertion) R06.00 Obesity E66.9 Iron deficiency anemia D50.9 Elevated cholesterol E78.00 Anemia D64.9 Elevated CEA R97.0 Colon cancer high risk Z91.89 Medical History Medical History Anxiety Asthma Depression Dissociative identity disorder Epistaxis, recurrent GERD (gastroesophageal reflux disease) Hx of small bowel obstruction Hyperlipidemia Hypertension Hypothyroidism Knee arthropathy Migraine headache Primary osteoarthritis of left knee Steroid injection: 09/25/2021 Primary osteoarthritis of right knee Steroid injection: 09/25/2021 PTSD (post-traumatic stress disorder) Per pt. states no current triggers Stage III carcinoma of colon (~08/06/20) Thrombocythemia Surgical History Surgical History History of arthroscopy of right knee History of cholecystectomy History of colonoscopy (~10/2021) History of tonsillectomy S/P right hemicolectomy S/P right rotator cuff repair Tobacco Smoking/Tobacco Use Status: Former Tobacco Use Alcohol Alcohol Intake: former Substance Use Substance use: Occasionally Substance use type: marijuana Vital Signs and Lab Results Vital Signs Most Recent Vital Signs in EMR: Most Recent Vital Signs Temp Pulse Resp BP Pulse Ox 36.4 C L 112 H 20 166/83 H 93 01/08/23 06:00 01/08/23 06:00 01/08/23 06:00 01/08/23 06:00 01/08/23 06:00 Lab Results Blood Type / Crossmatch: Patient ABO/Rh A Positive 01/06/23 Antibody Screen NEGATIVE 01/06/23 Complete Blood Count: White Blood Count 5.49 10^3/uL (4.4-10.8) 12/15/22 14:19 Red Blood Count 4.33 10^6/uL (3.93-5.22) 12/15/22 14:19 Hemoglobin 12.9 g/dL (11.2-15.7) 12/15/22 14:19 Hematocrit 39.9 % (36.0-46.0) 12/15/22 14:19 Platelet Count 377 10^3/uL (130-400) 12/15/22 14:19 Complete Metabolic Panel: Sodium 141 mmol/L (136-145) 12/15/22 14:19 Potassium 4.2 mmol/L (3.5-5.1) 12/15/22 14:19 Chloride 106 mmol/L (98-107) 12/15/22 14:19 Carbon Dioxide 24.7 mmol/L (21.0-32.0) 12/15/22 14:19 BUN 20 mg/dL (7-18) H 12/15/22 14:19 Creatinine 0.9 mg/dL (0.55-1.02) 12/15/22 14:19 Est GFR (CKD-EPI 2020) 67.92 (mL/min/1.73m2) 12/15/22 14:19 Calcium 9.5 mg/dL (8.5-10.1) 12/15/22 14:19 Albumin 3.2 g/dL (3.4-5.0) L 12/15/22 14:19 Glucose 100 mg/dL (74-106) 12/15/22 14:19 Liver Function Panel: Alanine Aminotransferase (ALT/SGPT) 21 U/L (14-59) 12/15/22 14:19 Aspartate Amino Transf (AST/SGOT) 18 U/L (15-37) 12/15/22 14:19 Coagulation Panel: No Data to Display Cardiac Panel: No Data to Display Arterial Blood Gas: No Data to Display Venous Blood Gas: No Data to Display Pancreas Panel: No Data to Display Thyroid Panel: No Data to Display Infectious Disease: Coronavirus (COVID-19)(PCR) Negative (Negative) 01/08/23 06:15 Coronavirus 2019 Source Nasal/Nares 01/08/23 06:15 Blood Cultures: No Data to Display Toxicology Panel: No Data to Display Imaging and Studies Imaging and Studies Study information below may be from another EMR and interpreted by another provider. Please see original notes in EMR for more complete details. EKG Summary: EKG PATIENT NAME: MARKO GILL #: [id number] ORDERING PROVIDER: Enrique Brown #: [id number] PRIMARY CARE PROVIDER:BASILIO GOLDMAN DO DATE/TIME OF SERVICE: 07/16/20 1114 : 1950PERFORMING LOCATION: [place] APPROVED REPORT Exam: Resting ECG Patient Location: I HR:79 bpm ECG Measurements Heart Rate 79 AXIS PA 148 P 40 QRSd 84 QRS 18 QT 403 T66 QTc 463 Conclusion Sinus rhythm...normal P axis, V-rate 60- 99 Nonspecific T abnormalities, anterior leads...T <-0.10mV, V2-V4 <Electronically signed by RICH MELENDEZ MD in OV> E-Sign Date: 07/16/20 E-Sign Time: 1156 Anesthesia Assessment and Plan Anesthesia History Personal History: No History of Anesthesia Complications Family History: No Family History of Anesthesia Complications Exercise Tolerance Exercise Tolerance: Metabolic Equivalents>4 Pertinent Negatives Pertinent Negatives: No Symptoms of GERD and No History of CVA/TIA Cardiac & Pulmonary Exam Cardiac Exam: Normal S1/S2 Heart Sounds Pulmonary Exam: Clear Bilateral Breath Sounds Implantable Cardiac Device Does patient have a Pacemaker or an ICD?: No Airway Exam Known Difficult Airway: No Mallampati Class: 3 Mouth Opening: Narrow (< 3cm) Thyromental Distance: Greater than 3 cm Neck Range of Motion: Full ROM Neck Circumference: Normal Teeth Condition: Normal Dentition (two broken lower teeth per patient) ASA Classification ASA Score: ASA 3 Emergency Case?: No NPO Status NPO Status: NPO Clears >2 hours, Solids >8 hours Anesthesia Plan Resuscitation Status: Full Code Anesthesia Technique: General Anesthesia Airway Planned: Endotracheal Tube Pain Management: Surgeon and patient request nerve block Monitors Used: Standard Monitors Preoperative Comments:: Patient refused epidural, did consent for bilateral TAP blocks
[2023-01-08] MEDS: Acetaminophen 500 MG TAB 1000 MG PO (06:58)
[2023-01-08] MEDS: Celecoxib 200 MG CAP PO (06:59)
[2023-01-08] MEDS: Lactated Ringers 1,000 ML 80 ML IV ×2 (06:59→13:34)
[2023-01-08] MEDS: ceFAZolin 2 GM/50 ML BAG IVPB (08:25)
[2023-01-08] MEDS: Heparin 5,000 UNITS/ML VIAL 5000 UNITS SC (08:40)
[2023-01-08] MEDS: Bupivacaine 0.25% Pres-Free 30 ML VIAL (08:55)
--- NOTE | 2023-01-08 10:43 | W.ANESNERVE ---
Nerve Block Single Injection Procedure Date and Time Date Performed: 01/08/23 Procedure Start: 08:27 Location Where Procedure Performed Procedure Location: Operating Room Procedure Stop: 08:34 Reason Performed: Postoperative Analgesia Requesting Provider: Kye Partida Timeout Performed Timeout Performed: Yes Monitoring Used ECG, Blood Pressure, SpO2 and ETCO2 Sterility Sterility: Hand Hygiene, Surgical Cap, Surgical Mask, Sterile Gloves and Chlorhexidine Sedation Given During Procedure Sedation Given (Indicate Dose Given): No Sedation given Patient Mental Status Patient Mental Status: Performed under general anesthesia Nerve Block 1st Nerve Block: Laterality: Bilateral Block Type: TAP Bilateral Ultrasound Image Saved?: Yes Needle / Catheter Used: 120mm SonoPlex II Local Anesthetic Bolus (Indicate Dose Given): None, Injected in 3-5ml increments after negative blood aspiration, Half of Total block solution given into each side and Bupivacaine 0.25% Dose:: 40 ml Additives (Indicate Dose Given): None Ultrasound: Sterile probe cover and gel used Nerve Stimulator: Not Used Paresthesia: None Procedure Tolerated: No Complications and Patient tolerated well Procedure Outcome: Successful Performed By: Alf Butterfield
--- NOTE | 2023-01-08 10:49 | BOWEL_PTH ---
PATIENT: Maryjo Whiteside LOC: U#:[id number] AGE/SX: 72/F ROOM: RE01/08/[address]: Kye Partida MD : 1950 BED: A DIS: 01/14/2023 SPEC #: [id number] RECD: 01/08/23 12:53 STATUS: SOUInder REQ #: [id number] AZK: 01/08/23 10:[address]: Kye Partida DEPT: Surgical Specimen RECD BY: Sary Barnes ENTERED: 01/08/23 12:54 SP TYPE: Bowel OTHR DR: Shayan Headley Tissues: 1 - BOWEL RESECTION(OTHER) 2 - PERITONEUM/OBDULIA BIOPSY Procedures: IMMUNOPEROXIDASE STAIN GROSS AND MICRO LEVEL 5 GROSS AND MICRO LEVEL 6 [id number] IPEX Comments: [id number]
[2023-01-08] MEDS: HYDROmorphone 2 MG/ML SYR IVP ×2 (12:52→12:59)
--- NOTE | 2023-01-08 14:22 | W.ANESPOSTOP ---
Postoperative Evaluation Date, Time and Location Date Performed: 01/08/23 Time Performed: 14:22 Patient Location: PACU Vital Signs Most Recent Imported Vital Signs: Most Recent Vital Signs Temp Pulse Resp BP Pulse Ox 36.6 C 62 18 95/44 L 97 01/08/23 14:05 01/08/23 14:05 01/08/23 14:05 01/08/23 14:05 01/08/23 14:05 Pain Score Most Recent Pain Score: Most Recent Pain Score Pain Level 2 01/08/23 14:05 Assessment Mental Status: Awake (Alert & Oriented to Patient Baseline) Airway and Respiratory Function: Patent airway with normal (patient baseline) respiratory exam Cardiovascular Function: Hemodynamically Stable Hydration Status: Adequately Hydrated Nausea & Vomiting: No Nausea or Vomiting Pain: Pain is tolerable per patient Peripheral Nerve Block: Regional nerve block not resolved at time of post operative discharge
[2023-01-08] MEDS: MORPHine 4 MG/ML SYR IVP ×5 (16:07→23:29)
[2023-01-08] MEDS: Normal Saline Flush 10 ML SYR IVP ×2 (16:08→21:21)
[2023-01-08] MEDS: Nystatin POWDER 60 GM JAR TP (16:57)
[2023-01-08] MEDS: Ondansetron 4 MG/2 ML VIAL IVP (18:00)
[2023-01-08] MEDS: Enoxaparin 40 MG/0.4 ML SYR SC (18:01)
[2023-01-08] MEDS: Lactated Ringers 1,000 ML 75 ML IV ×2 (18:46→23:30)
[2023-01-08] MEDS: Gabapentin 600 MG TAB PO (19:38)
[2023-01-08] MEDS: LORazepam 2 MG/ML VIAL 0.5 MG IVP (21:21)
[2023-01-09] VITALS (56 sets, daily range): BP systolic 63–153; BP diastolic 22–79; PULSE 83–109; RESP 12–27; TEMP 36.7–37.9; O2SAT 90–97
[2023-01-09] MEDS: MORPHine 4 MG/ML SYR IVP ×4 (02:16→08:47)
[2023-01-09] MEDS: Ondansetron 4 MG/2 ML VIAL IVP ×2 (02:16→19:40)
[2023-01-09] MEDS: Levothyroxine 150 MCG TAB 300 MCG PO (05:33)
[2023-01-09] MEDS: Normal Saline Flush 10 ML SYR IVP ×8 (05:33→21:58)
[2023-01-09 06:40] LABS: Abs Immature Grans 0.05 10^3/uL (0.0-0.06); Absolute Eosinophil Count 0.01 10^3/uL (0.0-0.7); Absolute Lymphocyte Count 0.68 10^3/uL (1.2-3.4); Absolute Monocyte Count 0.88 10^3/uL (0.1-0.8); Absolute Neutrophil Count 8.61 10^3/uL (1.2-6.7); Eosinophils % 0.1; HCT 34.8 % (36.0-46.0); HGB 11.1 g/dL (11.2-15.7); Immature Grans % 0.5; Lymphocytes % 6.6; MCH 29.5 pg (27.0-33.0); MCHC 31.9 % (32.0-36.0); MCV 93 fL (80-95); MPV 9.8 fL (8.0-11.0); Monocytes % 8.6; Neutrophils % 84.2; Platelet Count 200 10^3/uL (130-400); RBC 3.76 10^6/uL (3.93-5.22); RDW 12.8 % (11.7-14.6); RDW-SD 43.5 fL; WBC 10.23 10^3/uL (4.4-10.8)
[2023-01-09 06:50] LABS: Anion Gap 3.7 mmol/L (3-11); BUN 20 mg/dL (7-18); CO2 26.3 mmol/L (21.0-32.0); CREATININE 0.8 mg/dL (0.55-1.02); Chloride 106 mmol/L (98-107); Estimated GFR 78.24 (mL/min/1.73m2); Glucose 124 mg/dL (74-106); Potassium 3.4 mmol/L (3.5-5.1); Sodium 136 mmol/L (136-145)
[2023-01-09] MEDS: FLUoxetine 20 MG CAP 80 MG PO (09:11)
[2023-01-09] MEDS: Gabapentin 600 MG TAB PO ×3 (09:12→19:53)
[2023-01-09] MEDS: risperiDONE 0.5 MG TAB PO ×2 (09:12→19:53)
[2023-01-09] MEDS: Mometasone 220 MCG 14 DOSE INHALER 1 PUFF IH (09:16)
[2023-01-09] MEDS: Pantoprazole 40 MG VIAL IV (09:29)
--- NOTE | 2023-01-09 10:12 | IN_ITS ---
PT Notes Physical Therapy Inpatient Initial Evaluation Date: 01/09/23 Referring Doctor: Kye Partida PT Orders: PT CONSULT: Limited ability Precautions: Fall. Standard. Abdominal surgery. Head of bed elevated to 45 degrees for NG tube. Patient Profile/Admitting Diagnosis: Maryjo is 72 yo female that underwent surgery on 01/08/23 for colectomy with creation of end ileostomy secondary to cancer. She had previous surgery and chemotherapy, but recent colonoscopy found additional lesions. Patient is POD #1 and having difficulty with pain management. PMHX: See EMR Social History/Home Situation: Lives with spouse and a daughter is staying there. Only lives on main level of home, has 6 LEAH. Equipment Owned/DME: Cane Subjective: Cleared by nursing to see patient and patient is agreeable to PT. Patient is in bed with head elevated to at least 45 degrees at time of consult with NG tube and pandya catheter. Objective: General Observation: Patient is pleasant Mental Status: A&O x3 Pain: Rating not given, but reports high and nursing working on management strat egy with provider ROM: Right Upper Extremity: Shoulder Flexion WFL. Shoulder abduction WFL. Elbow flexion WFL. Wrist flexion WFL. Opening and closing of hand WFL. Left Upper Extremity: Shoulder Flexion WFL. Shoulder abduction WFL. Elbow flexion WFL. Wrist flexion WFL. Opening and closing of hand WFL. Right Lower Extremity: Hip flexion WFL. Hip abduction WFL. Knee flexion WFL. Ankle dorsiflexion WFL. Ankle plantarflexion WFL. Left Lower Extremity: Hip flexion WFL. Hip abduction WFL. Knee flexion WFL. Ankle dorsiflexion WFL. Ankle plantarflexion WFL. Strength: Right Upper Extremity: Not formally assessed due to abdominal pain Left Upper Extremity: Not formally assessed due to abdominal pain Right Lower Extremity: Not formally assessed due to abdominal pain Left Lower Extremity: Not formally assessed due to abdominal pain Sensation: Intact as to pain and pressure on bilateral lower extremities. Bed Mobility/Transfers: Patient in too much pain to work on bed mobility or transfers. 2-3 person MAX A for repositioning in bed Gait: Not assessed Stairs: Not assessed Balance: Unable to assess Therapeutic Exercise (64154) for instruction in therapeutic exercises to develop strength and endurance, range of motion and flexibility: 5 minutes Heel slides x5 Quad sets x5 Ankle pumps x10 Provided patient with bed exercises: Access Code: [email or web address] URL: [email or web address] Date: 01/09/2023 Prepared by: Mindy Givens Exercises * Supine Heel Slide - 3 x daily - 5 reps * Supine Isometric Hamstring Set - 3 x daily - 5 reps - 5 hold * Supine Quad Set - 3 x daily - 5 reps - 5 hold * Supine Gluteal Sets - 3 x daily - 5 reps - 5 hold * Supine Ankle Pumps - 3 x daily - 10 reps * Supine Hip Abduction - 3 x daily - 5 reps Special Tests: Mobility Limitations Standardized Measure [facility] AM-PAC 6 clicks Basic Mobility Inpatient Short Form: Raw Score: 6 CMS Score: 100% Informed Consent/Education: Patient instructed in purpose of PT consult and plan of care. Assessment: Patient presents with clinical signs and symptoms consistent with current/admitting diagnoses that have resulted to mobility limitations, gait instability, generalized weakness, and impairment of motor control as demonstrated by the following impairment level findings: 1. Decreased strength to all major muscle groups 2. Impaired sitting/standing balance 3. Impaired activity tolerance 4. Limitation of trunk mobility Impairments are contributing to the following functional limitations: 1. Dependent bed mobility skills 2. Dependence with transfers 3. Inability to safely ambulate without assistive device and physical assistance 4. Increase completion time for mobility ADL performance 5. Increased fall risk 6. Inability to negotiate steps alone safely Patient is assessed as a High complexity based on the following: History: 72 year old female with impairment level findings, functional limitations, and past medical history as indicated above Examination: Demonstrable impairment in strength, balance, and mobility level with underlying impairments and functional limitations as documented above Presentation: Evolving Decision Making: High complexity Patient quickly fatigues with bed exercises. Nursing assist to reposition up in bed and she has a lot of pain with this. Goals: Goals x1 week 1. Supine-Sit: Mod A 2. Sit-Supine: Mod A 3. Sit-Stand: Mod A 4. Stand-Sit: Mod A 5. Bed-Chair: Mod A 6. Chair-Bed: Mod A 7. Independent gait on level surface with use of least restrictive device for at least 300 feet without report of pain nor dyspnea 8. Good static and dynamic standing balance/tolerance 9. Independent with home exercise program 10. Min A with bed mobility Plan of Care/Treatment Plan: 1-2x/day, 7 days/week x1 week. Plan of care has been reviewed with the LEAD RIDER providing the service under Physical Therapy direction. Initiate Physical Therapy intervention for strengthening, bed mobility, transfers, gait, stairs, balance training, and use of assistive device. Discharge Plan DISCHARGE RECOMMENDATIONS: SNF for continued rehabilitation TREATMENT CODE/TIME: 9:50-10:12 (22 minutes), 85167 Thank you for the opportunity to participate in the care of this patient. Mindy Givens, PT, DPT, OCS [facility] [place], [place]
--- NOTE | 2023-01-09 10:55 | W.PM.PROGNOT ---
Date of Service Date of service: 01/09/23 Time of Service: 12:00 Assessment and Plan Assessment and plan (1) Status post colectomy: Status: Acute Assessment and plan: 72-year-old woman postop day #1 from completion (total) colectomy because of recurrent colon cancer. She is hemodynamically stable. She has an end ileostomy that looks healthy but not yet having any significant output. Overall she is doing pretty good but her pain control is somewhat inadequate subjectively and we will see if we can make some adjustments to get this under better control. Plan for today: #IV Tylenol, IV Toradol, Dilaudid [employer] CONSULTANT #Remove NG tube #Ice chips only for today, probably clears tomorrow as tolerated #Remove Morton catheter tonight with void check in the morning #Gentle 500 cc bolus of LR to replace NG tube losses #Slight increase in IV fluid rate until she starts taking p.o. #Strict output measurements from the ileostomy - this will be necessary for discharge planning to ensure she is not becoming dehydrated before discharge #Morning lab work #Out of bed and ambulate at least 3 times per day #DVT prophylaxis Subjective Subjective Interval history since last seen: At the bedside the patient has abdominal discomfort, but no other complaints. She denies nausea. She does have an NG tube. She has had difficulty swallowing oral medications with the NG tube in place. She has had adequate urine output. She does report that she feels dry mouth and thirsty. Exam Narrative Exam Narrative: General: Nontoxic, comfortable and interactive. She does not appear to be in pain. Neuro: Alert and oriented x3 Psych: Good mood and affect, good insight and understanding. Abdomen: Soft, nondistended, mildly tender as expected in all 4 quadrants. The dressing is clean, dry and intact. The ileostomy bag has a scant amount of bilious enteric fluid in it but no significant amount of air. The drain has serosanguineous fluid in it and a scant amount. The NG tube has bilious drainage in it. 600 cc overnight. Morton catheter has very dark urine and it. The urine in the tubing is chief ii dispatcher and more clear. Objective Last Vital Signs Temp 98.1 F 01/09/23 07:33 Pulse 97 H 01/09/23 07:33 Resp 20 01/09/23 07:33 BP 144/79 H 01/09/23 07:33 Pulse Ox 94 02/25/23 09:50 Laboratory Results - last 24 hr 01/09/23 01/09/23 06:10 06:10 WBC 10.23 RBC 3.76 L Hgb 11.1 L Hct 34.8 L MCV 93 MCH 29.5 MCHC 31.9 L RDW 12.8 Plt Count 200 MPV 9.8 Immature Gran % 0.5 Neutrophils % 84.2 Lymphocytes % 6.6 Monocytes % 8.6 Eosinophils % 0.1 Basophils % 0.0 Nucleated RBC % 0.0 Absolute Neutrophils 8.61 H Absolute Lymphocytes 0.68 L Absolute Monocytes 0.88 H Absolute Eosinophils 0.01 Absolute Basophils 0.00 Sodium 136 Potassium 3.4 L Chloride 106 Carbon Dioxide 26.3 Anion Gap 3.7 BUN 20 H Creatinine 0.8 Est GFR (CKD-EPI 2020) 78.24 Glucose 124 H Calcium 9.0 Time Spent with Patient Time Spent with Patient: <25 minutes Time was spent: preparing to see the patient(eg.review tests), ordering medications,tests, procedures, indepentently interpreting results and counseling the patient
[2023-01-09] MEDS: Ketorolac 15 MG/ML VIAL IVP ×2 (13:35→21:59)
[2023-01-09] MEDS: Lactated Ringers 1,000 ML 100 ML IV ×2 (13:37→19:43)
[2023-01-09] MEDS: Lactated Ringers 500 ML IV (14:15)
[2023-01-09] MEDS: Enoxaparin 40 MG/0.4 ML SYR SC (17:51)
--- NOTE | 2023-01-09 18:00 | PDOC.CMIN ---
- If Service Date Differs Date of service: 01/09/23 Time of Service: 18:00 Care Management Initial Assess REASON FOR HOSPITALIZATION:: Colon cancer. PAST MEDICAL HISTORY/PAST SURGICAL HISTORY:: All Active Problems: Colon cancer (Chronic), PA (dyspnea on exertion) (Acute), Obesity (Chronic), Iron deficiency anemia (Acute), Elevated cholesterol (Chronic), and Anemia (Chronic). Medical History: Anxiety, Asthma, Cecum mass, Colon cancer high risk,. Colon cancer, ascending, Depression, Dissociative identity disorder,. Elevated CEA, Epistaxis, recurrent, GERD (gastroesophageal reflux disease), Hx of small bowel obstruction, Hyperlipidemia, Hypertension,. Hypothyroidism, Knee arthropathy, Migraine headache, Primary osteoarthritis of left knee - Steroid injection: 09/25/2021, Primary osteoarthritis of right knee - Steroid injection: 09/25/2021, PTSD (post-traumatic stress disorder) - Per pt. states no current triggers, Stage III carcinoma of colon (~08/06/20), and Thrombocythemia. Surgical History: History of arthroscopy of right knee, History of cholecystectomy, History of colonoscopy (~10/2021), History of tonsillectomy, S/P right hemicolectomy, and S/P right rotator cuff repair. PREVIOUS FUNCTIONAL STATUS/SOCIAL/FAMILY SUPPORTS:: Maryjo lives in [place] with her , Martell. She has three adult daughters, two of whom live out of [facility] and one who resides in [place], [place]. Her family is very supportive of her. 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 She is independent with her ADLs at baseline. CURRENT FUNCTIONAL STATUS:: Maryjo is lying in bed when comes to meet with her. Her , Martell, and one of her daughters is present in the room. Maryjo inquires if she will have nursing help when she returns home and assures her we will continue to assess her needs and will put appropriate services in place upon discharge. ADVANCE DIRECTIVES:: None on file but patient says she has completed an Advance Directives. Has patient been provided with info about the portal/API?: Yes Did the patient sign up for the portal?: No CODE STATUS:: Full Code INSURANCE COVERAGE / FINANCIAL ISSUES:: BCBS [place] Medicare Advantage. CURRENT HOME/COMMUNITY SERVICES/EQUIPMENT:: No home or community services. Maryjo owns a cane and a walker. PRIMARY CARE PHYSICIAN:: Shayan Headley DO. POTENTIAL DISCHARGE NEEDS:: Follow up appointments with PCP and surgeon, new RN and PT vs short term rehab. PATIENT/FAMILY EDUCATION NEEDS:: Review of discharge instructions including medications, limitations and follow up plan of care; discuss Ask Me Three and self management. ANTICIPATED BARRIERS TO DISCHARGE:: None identified at this time. TRANSPORTATION:: To be determined as it is dependent on disposition. PLAN:: Patient will return home with [facility] RN and PT services vs short term rehab when medically cleared by provider. She will follow up with her PCP[facility] oncology and plan of care as instructed. Transportation is dependent on disposition. If she is discharged home, she will be transported via private vehicle by her in which case she will likely need a lift assist to get into her home. CM will continue to support patient, family and any discharge needs.
[2023-01-09] MEDS: Nystatin POWDER 60 GM JAR TP (19:00)
[2023-01-09] MEDS: Zolpidem 5 MG TAB PO (21:55)
[2023-01-10] VITALS (138 sets, daily range): BP systolic 99–132; BP diastolic 42–82; PULSE 81–115; RESP 11–29; TEMP 36.1–37.6; O2SAT 86–96
[2023-01-10] MEDS: Normal Saline Flush 10 ML SYR IVP ×2 (03:36→07:27)
[2023-01-10] MEDS: Lactated Ringers 1,000 ML 100 ML IV ×2 (05:43→17:21)
[2023-01-10] MEDS: Ketorolac 15 MG/ML VIAL IVP ×3 (05:44→21:12)
[2023-01-10] MEDS: Levothyroxine 150 MCG TAB 300 MCG PO (05:44)
[2023-01-10 07:18] LABS: ALT 37 U/L (14-59); AST 29 U/L (15-37); Albumin 2.3 g/dL (3.4-5.0); Alkaline Phosphatase 66 U/L (46-116); BUN 18 mg/dL (7-18); Bilirubin, Total 0.3 mg/dL (0.2-1.0); CREATININE 0.7 mg/dL (0.55-1.02); Calcium 8.9 mg/dL (8.5-10.1); Chloride 106 mmol/L (98-107); Estimated GFR 91.83 (mL/min/1.73m2); Glucose 88 mg/dL (74-106); Potassium 3.2 mmol/L (3.5-5.1); Sodium 140 mmol/L (136-145); Total Protein 5.7 g/dL (6.4-8.2)
[2023-01-10] MEDS: Mometasone 220 MCG 14 DOSE INHALER 1 PUFF IH (07:21)
[2023-01-10] MEDS: Ondansetron 4 MG/2 ML VIAL IVP (07:26)
[2023-01-10] MEDS: Rizatriptan 10 MG TAB PO (07:26)
[2023-01-10] MEDS: risperiDONE 0.5 MG TAB PO ×2 (07:29→21:12)
[2023-01-10] MEDS: Gabapentin 600 MG TAB PO ×3 (07:29→21:12)
[2023-01-10] MEDS: FLUoxetine 20 MG CAP 80 MG PO (07:29)
[2023-01-10] MEDS: Pantoprazole 40 MG VIAL IV (13:10)
[2023-01-10] MEDS: Enoxaparin 40 MG/0.4 ML SYR SC (17:23)
[2023-01-10] MEDS: Zolpidem 5 MG TAB PO (21:12)
[2023-01-11 01:55] VITALS: BP 138/50; PULSE 101; O2SAT 92
[2023-01-11 02:00] VITALS: BP 138/50; PULSE 94; RESP 16; TEMP 36.7; O2SAT 91
[2023-01-11] MEDS: Levothyroxine 150 MCG TAB 300 MCG PO (04:50)
[2023-01-11] MEDS: Ketorolac 15 MG/ML VIAL IVP (04:50)
[2023-01-11] MEDS: Lactated Ringers 1,000 ML 100 ML IV ×2 (05:14→13:41)
[2023-01-11] MEDS: Pantoprazole 40 MG VIAL IV (07:56)
[2023-01-11] MEDS: Normal Saline Flush 10 ML SYR IVP ×2 (07:57→15:49)
[2023-01-11 08:00] VITALS: O2SAT 92
[2023-01-11] MEDS: Mometasone 220 MCG 14 DOSE INHALER 1 PUFF IH (08:05)
--- NOTE | 2023-01-11 08:16 | PT.INTREAT ---
Date of service: 01/10/23 PT Notes Visit Reasons: Colon Cancer Inpatient Physical Therapy Treatment Note [facility] Date: 01/10/23 SUBJECTIVE: Maryjo states that she is willing to go for a walk. She c/o pain in abdominal area with mvmt. OBJECTIVE: [] BED MOBILITY/TRANSFERS Supine-sit: min A Sit-supine: min/mod A Sit-stand: min A x2 Stand-sit: CGA Bed-Chair: min A x2 Chair-bed: min A x2 GAIT Assistive Device:FWW Weight bearing: AT Assist: CGA Distance: approx 15' Deviation: proper breathing techniques. ASSESSMENT: tolerated session well. Pain increases anytime pressure to stomach area ie bending forward etc. PLAN: continue to progress functional mobility following PT POC. TREATMENT CODE/TIME: 25 min. [id number]
[2023-01-11] MEDS: risperiDONE 0.5 MG TAB PO ×2 (08:36→21:25)
[2023-01-11] MEDS: FLUoxetine 20 MG CAP 80 MG PO (08:36)
[2023-01-11] MEDS: Gabapentin 600 MG TAB PO ×3 (08:36→21:26)
[2023-01-11 08:54] VITALS: BP 152/62; PULSE 97; O2SAT 93
--- NOTE | 2023-01-11 08:59 | CMPROGNOTE_ITS ---
- If Service Date Differs Date of service: 01/11/23 Time of Service: 09:00 Care Management Progress Note S/O: Maryjo is sitting in her chair, visiting with her Martell when CM met with her. She is awake, pleasant and easily engages in conversation. Maryjo shares that her plan is to discharge home with New [facility] RN/PT/OT/HUNTING GUIDE services when medically ready, although she would consider discharging to a SNF for STR, if needed. Martell is in complete support of her discharging home with full [facility] services and is eager to learn Ostomy Care. He is also reaching out to the [facility] to see if they have a commode and Shower chair with a plan to order online if unable to obtain locally. From a PT standpoint, Brandi from PT reports that she is motivated to get stronger and is progressing well. CM will place a [facility] referral, if patient is agreeable. Earlier this morning, CM met with patients daughters Mindy and Lydia who shared concerns with their mother going home and their father's ability to care for her. CM advised that discharge planning considerations are still to be determined and will be based on Maryjo's progress with PT. Also, treatment plan with oncology is in the beginning stages and may effect ability to get timely treatment if discharging to a SNF. CM gave Mindy caregiver resources, if Maryjo is discharged home and support beyond [facility] is needed. A: 72 year old female admitted to [facility] on 01/08/23 for Colon cancer. P: Patient will return home with new [facility] RN, PT, OT, HUNTING GUIDE services vs short term rehab when medically cleared by provider. She will follow up with her PCP, [facility], [facility] oncology and plan of care as instructed. Transportation is dependent on disposition. If she is discharged home, she will be transported via private vehicle by her in which case she will likely need a lift assist to get into her home. CM will continue to support patient, family and any discharge needs.
--- NOTE | 2023-01-11 12:08 | PT.INTREAT ---
Date of service: 01/11/23 Time of Service: 10:36 PT Notes Visit Reasons: Colon Cancer Inpatient Physical Therapy Treatment Note [facility] Date: 01/11/2023 PRECAUTIONS: Activity as tolerated SUBJECTIVE: Maryjo is pleasant and agreeable to participating in PT this morning. She reports that she is having pain at rest and is tired. Nursing reports that she was able to walk with FWW support earlier this morning. OBJECTIVE: PAIN: Patient reports pain everywhere and rates it as a 10/10 prior to PT session in a.m.; decreased pain in p.m. BED MOBILITY/TRANSFERS Sit-supine: Max A with HOB at 20 degrees Sit-stand: SBA Stand-sit: SBA GAIT Assistive Device: FWW Weight bearing: Full Assist: SBA Distance: 50' in a.m.; 60' in p.m. Deviation: Slow pacing, SOB, standing rest x1; improved pacing in p.m., minimal SOB ASSESSMENT: Patient tolerated session with complaint of global pain. She was able to tolerate a progression in gait distance with FWW support and SBA. She demonstrates SOB with gait training, requiring standing rest x1. PLAN: Continue with global strengthening, gait and transfer training for improved mobility and activity tolerance. TREATMENT CODE/TIME: Session 1: 25 minutes; 25799 x2 (10:36) Session 2: 30 minutes; 72029 x2 (13:20)
[2023-01-11 16:40] VITALS: BP 147/75; PULSE 97; RESP 18; TEMP 37.2; O2SAT 95
[2023-01-11] MEDS: Enoxaparin 40 MG/0.4 ML SYR SC (19:09)
--- NOTE | 2023-01-11 20:00 | W.PM.PROGNOT ---
Date of Service Date of service: 01/11/23 Time of Service: 20:00 Assessment and Plan Assessment and plan (1) Status post colectomy: Status: Acute Assessment and plan: I think Maryjo is doing very well after completion colectomy. I will Hep-Lock her IV fluids and advance her diet today. I suspect we will be able to get the drain out in the next day or so. Subjective Subjective Interval history since last seen: Feels much better today compared to yesterday. She has been up out of bed and sitting in the chair for a while. She was able to relate with the assistance of physical therapy and nursing today. Exam GI Inspection: non-distended Palpation: soft and tender Other: Stoma is working fine. Jorge L dressing is fine. Effluent to the surgical drain is serosanguineous Objective Last Vital Signs Temp 99.0 F 01/11/23 16:40 Pulse 97 H 01/11/23 16:40 Resp 18 01/11/23 16:40 BP 147/75 H 01/11/23 16:40 Pulse Ox 95 01/11/23 16:40 Time Spent with Patient Time Spent with Patient: 25-34 minutes Time was spent: preparing to see the patient(eg.review tests) and counseling the patient
[2023-01-11] MEDS: Acetaminophen 500 MG TAB PO (21:26)
[2023-01-11] MEDS: Zolpidem 5 MG TAB PO (21:26)
[2023-01-12 01:40] VITALS: BP 119/52; PULSE 111; RESP 18; TEMP 36.7; O2SAT 93
[2023-01-12] MEDS: Levothyroxine 150 MCG TAB 300 MCG PO (06:51)
[2023-01-12 08:16] VITALS: BP 143/71; PULSE 114; RESP 20; TEMP 37.3; O2SAT 94
[2023-01-12] MEDS: Mometasone 220 MCG 14 DOSE INHALER 1 PUFF IH (08:49)
--- NOTE | 2023-01-12 08:52 | PDOC.CMPRO ---
- If Service Date Differs Date of service: 01/12/23 Time of Service: 08:52 Care Management Progress Note S/O: Maryjo was sitting in her chair visiting with her Martell when CM met with her. She is planning to discharge home with Full [facility] services when Medically ready. Dr. Arias anticipates that she will be medically ready tomorrow. Maryjo's surgical pouch is being changed and she is receiving Ostomy Care and education. CM plans to fax [employer] Order, after her primary nurse has ordering info. Also, CM faxed a referral to [facility] for information since she is interested in MOW and information about services. Of note, Maryjo shared with CM that she had multiple negative interactions with a particular RN while in the ICU. CM reassured patient that her concerns would be shared with [facility]. CM will continue to follow. A: 72 year old female admitted to [facility] on 01/08/23 for Colon cancer. P: Patient will return home with new Home Health RN, PT, OT, INVESTIGATOR WELFARE services vs short term rehab when medically cleared by provider. She will follow up with her PCP, [facility], [facility] oncology and plan of care as instructed. Transportation is dependent on disposition. If she is discharged home, she will be transported via private vehicle by her in which case she will likely need a lift assist to get into her home. CM will continue to support patient, family and any discharge needs.
--- NOTE | 2023-01-12 09:49 | PGE_ITS ---
Date of Service Date of service: 01/12/23 Time of Service: 09:49 Assessment and Plan Assessment and plan (1) Status post colectomy: Status: Acute Assessment and plan: POD#5-subtotal colectomy for recurrent colon cancer -Patient is tolerating a regular diet -Patient is very high anxiety -Patient is on chronic pain meds and benzodiazepines. Controlling her pain has been challenging She is not doing any of her colostomy cares at this time. She will have home health for her new colostomy. She will need home PT and OT. -Continue nutritional supplements -Routine postop care and PT -And discharged on (2) Colon cancer: Status: Chronic (3) Obesity: Status: Chronic (4) Iron deficiency anemia: Status: Acute (5) Elevated cholesterol: Status: Chronic (6) Anemia: Status: Chronic (7) Anxiety: (8) Asthma: (9) GERD (gastroesophageal reflux disease): (10) Hx of small bowel obstruction: (11) Hyperlipidemia: (12) Hypertension: (13) Hypothyroidism: Subjective Subjective Interval history since last seen: Pt is doing well. no headaches. No CP or SOB. no productive cough. no dysuria. no leg pain or swelling. She is tolerating a regular diet. She is not able to do any of her own colostomy cares. She feels very weak. She was able to walk 60 feet with PT today. Exam Const General: cooperative and anxious Nutritional Appearance: obese Orientation: alert, awake and oriented x3 Other: L: CTA b/l H: R/R/R osotmy-pink/patent/ productive. Bowel sounds Jorge L is in place with minimal strike-through Lower extremities no redness or breakdown Objective Last Vital Signs Temp 37.3 C 01/12/23 08:16 Pulse 114 H 01/12/23 08:16 Resp 20 01/12/23 08:16 BP 143/71 H 01/12/23 08:16 Pulse Ox 94 01/12/23 08:16 Time Spent with Patient Time Spent with Patient: >50 minutes Time was spent: preparing to see the patient(eg.review tests), obtaining and/or reviewing separately otained hiistory, ordering medications,tests, procedures, referring, communicating with other health managed care coordinator, indepentently interpreting results, counseling the patient and care coordination
[2023-01-12] MEDS: FLUoxetine 20 MG CAP 80 MG PO (10:07)
[2023-01-12] MEDS: risperiDONE 0.5 MG TAB PO ×2 (10:07→19:38)
[2023-01-12] MEDS: Gabapentin 600 MG TAB PO ×3 (10:07→19:38)
[2023-01-12] MEDS: Normal Saline Flush 10 ML SYR IVP (10:11)
[2023-01-12] MEDS: Normal Saline 10 ML VIAL IJ (10:17)
[2023-01-12] MEDS: Pantoprazole 40 MG VIAL IV (10:19)
--- NOTE | 2023-01-12 11:44 | PT.INNT ---
Date of service: 01/12/23 Time of Service: 11:44 PT Notes Visit Reasons: Colon Cancer 01/12/2023 Hold morning PT session per patient request, as she did not sleep well overnight due to pain and is exhausted. Relayed to nursing. Will attempt to resume PT services later today.
--- NOTE | 2023-01-12 12:34 | PDOC.HHF2F ---
Home Health Referral Home Health Orders Clinical synopsis of why skilled professionals are needed: colon cancer Medical diagnosis necessitation home health referral: obese/cancer/anemia/weekeness/hatfield Registered Nurse: Check all that apply Instruct on new or changed medication(s)/assess compliance: Ordered Instruct on ostomy care: Ordered Assess for exacerbation of medical condition, instruct patient/caregivers on signs and symptoms to report for early detection: Ordered Assess wound for signs and symptoms of infection, instruct on wound care and/or provide skilled wound care consisting of: new ostomy Physical Therapist: Check all that apply Increase strength & endurance for safe mobility at home: Ordered To design/establish home maintenance program: Ordered Home safety evaluation and teaching/gait training including stair management (if applicable): Ordered Occupational Therapist: Evaluate and treat for patient unable to perform ADL/IADL/self-care: Ordered Upper extremity strengthening, range and motion: Ordered Home Bound Status Requires the aid of supportive device (check all that apply): Walker Assistance of another person (Describe assistance and medical necessity): weakness/laparotomy Patient has a condition such that leaving home is medically contraindicated (Describe): cannot drive/recen surgery Describe why leaving home would require a considerable and taxing effort: Side effects from pain medication (sedation/drowsiness), Requires frequent rest periods and Safety Concerns: describe Encounter Date and Reason: I certify that a FTF encounter for this patient was performed on January 12, 2023 and that such encounter was related to the primary reason the patient requires home health services. The encounter was conducted in the following manner: By me as the certifying physician, SUPERINTENDENT WAREHOUSE, PA or By an inpatient physician, SUPERINTENDENT WAREHOUSE or PA during an inpatient stay who communicated findings to me, Certification And Authentication I certify that I composed the above information based on my clinical judgment relating to this patient's medical condition and, if applicable, clinical findings communicated to me by the NPP or inpatient physician who performed the FTF encounter. Name of Provider that will be monitoring home health services: Kye Partida
--- NOTE | 2023-01-12 14:03 | PT.INTREAT ---
Date of service: 01/12/23 Time of Service: 13:22 PT Notes Visit Reasons: Colon Cancer Inpatient Physical Therapy Treatment Note [facility] Date: 01/12/2023 PRECAUTIONS: Activity as tolerated SUBJECTIVE: Maryjo is pleasant and agreeable to participating in PT. She reports that she was able to get a little sleep this morning and feels better. She also reports that she has been able to tolerate an advanced diet today. OBJECTIVE: PAIN: Patient reports pain in abdominal area BED MOBILITY/TRANSFERS Sit-supine: Max A with HOB at 20 degrees Sit-stand: SBA Stand-sit: SBA GAIT Assistive Device: FWW Weight bearing: Full Assist: SBA Distance: 50' x2 Deviation: Slow pacing, SOB, seated rest x1, increased pain TOILETING: Patient toileted with assist ASSESSMENT: Patient tolerated session with complaint of global pain. She was able to tolerate a gait training FWW support and SBA, although requires seated rest due to pain, SOB, and fatigue. PLAN: Continue with global strengthening, gait and transfer training for improved mobility and activity tolerance. TREATMENT CODE/TIME: Session 1: Refused Session 2: 38 minutes; 30567 x3 (13:22)
[2023-01-12 15:26] VITALS: BP 127/67; PULSE 106; RESP 16; TEMP 36.7; O2SAT 92
[2023-01-12] MEDS: Protein Nutritional Supplement 16 GM 1 OUNCE PACKET PO ×2 (16:14→19:37)
--- NOTE | 2023-01-12 16:33 | CHAPLAIN ---
Maryjo was in bed when I visited. He , Heriberto, was just leaving. Maryjo was tearful at first telling me how hard this has been for here. She had surgery on Wednesday, her second surgery since being diagnosed with colon cancer in 2019. Maryjo shared some personal history and also told me about her three daughters and grandchildren. At one point she and Heriberto were raising two grandsons, who now live with their dad. I will continue to visit.
--- NOTE | 2023-01-12 17:08 | NUR.NOTE ---
Nursing Note:Nurse provided education on ostomy care, per patient ostomy appliance has not been changed since surgery. Upon removal of appliance nurse noted, appliance leaking onto the peristomal skin, redness, weeping and open areas noted. patient denies any pain at site. Stoma beefy red with small amount of stool and mucus noted. Nurse updated MD who came to bedside to assess. No new orders. Nurse reviewed with patient importance of maintian peristomal skin, skin was cleansed with soap and water, dried, stoma powder applied, followed by skin prep and appliance placed. Patient and who was present for teaching verbalized verbalized understanding. Patient will notify nurse with any concerns of visible leaks, will plan to change appliance in 3 days or sooner if leaking.
[2023-01-12] MEDS: Enoxaparin 40 MG/0.4 ML SYR SC (17:48)
[2023-01-12] MEDS: Acetaminophen 500 MG TAB 1000 MG PO (19:37)
[2023-01-12] MEDS: Zolpidem 5 MG TAB PO (21:37)
[2023-01-12 22:49] VITALS: BP 143/85; PULSE 99; RESP 20; TEMP 37.2; O2SAT 92
[2023-01-13] MEDS: oxyCODONE 10 MG TAB PO ×3 (03:31→18:11)
[2023-01-13] MEDS: Normal Saline Flush 10 ML SYR IVP ×3 (05:53→09:19)
[2023-01-13] MEDS: Acetaminophen 500 MG TAB 1000 MG PO ×3 (05:53→17:21)
[2023-01-13] MEDS: Levothyroxine 150 MCG TAB 300 MCG PO (05:53)
[2023-01-13 06:45] LABS: Platelet Count 396 10^3/uL (130-400)
[2023-01-13 07:34] VITALS: BP 159/89; PULSE 80; RESP 17; TEMP 36.4; O2SAT 94
[2023-01-13] MEDS: Mometasone 220 MCG 14 DOSE INHALER 1 PUFF IH (07:42)
[2023-01-13] MEDS: Nystatin POWDER 60 GM JAR TP ×2 (08:57→12:59)
[2023-01-13] MEDS: FLUoxetine 20 MG CAP 80 MG PO (08:57)
[2023-01-13] MEDS: Gabapentin 600 MG TAB PO ×3 (08:57→20:21)
[2023-01-13] MEDS: risperiDONE 0.5 MG TAB PO ×2 (08:58→20:21)
[2023-01-13] MEDS: Pantoprazole 40 MG VIAL IV (09:07)
[2023-01-13] MEDS: LORazepam 2 MG/ML VIAL 0.5 MG IVP (09:18)
--- NOTE | 2023-01-13 10:50 | CMPROGNOTE_ITS ---
- If Service Date Differs Date of service: 01/13/23 Time of Service: 10:50 Care Management Progress Note S/O: Maryjo was lying in bed when CM met with her. She is planning to discharge home with Full [facility] services when Medically ready. Yesterday, Dr. Arias felt that she would be medically ready today but Maryjo is hopeful discharge can happen on since she is exhausted today. Maryjo's surgical pouch was changed yesterday and ongoing Ostomy Care and education is being provided. Per nursing, exact ostomy supplies for discharge are unknown because they haven't found one that will stick well to her skin with the Ostomy being near a skin fold. CM plans to fax [employer] Order, when supplies are identified by nursing or surgeon. NATALIA Maldonado is planning on discussing this with Dr. Partida today. Also, CM faxed a referral to [facility] for information since she is interested in MOW and information about services. CM will continue to follow. A: 72 year old female admitted to [facility] on 01/08/23 for Colon cancer. P: Patient will return home with [facility] RN, PT, OT, BLOCK CLEANER services vs s hort term rehab when medically cleared by provider. She will follow up with her PCP, [facility], [facility] oncology and plan of care as instructed. Transportation is dependent on disposition. If she is discharged home, she will be transported via private vehicle by her in which case she will likely need a lift assist to get into her home. CM will continue to support patient, family and any discharge needs.
--- NOTE | 2023-01-13 14:40 | PT.INTREAT ---
Date of service: 01/13/23 Time of Service: 13:58 PT Notes Visit Reasons: Colon Cancer Inpatient Physical Therapy Treatment Note [facility] Date: 01/13/2023 PRECAUTIONS: Activity as tolerated SUBJECTIVE: Maryjo is pleasant and agreeable to participating in PT. She states that she is feeling better overall, however had some significant abdominal pain after eating lunch today. OBJECTIVE: PAIN: No c/o pain during PT session BED MOBILITY/TRANSFERS Supine: Min A Sit-stand: SBA Stand-sit: SBA GAIT Assistive Device: FWW Weight bearing: Full Assist: SBA Distance: 100' Deviation: Improved pacing, no c/o pain nor SOB TOILETING: Patient toileted independently ASSESSMENT: Patient tolerated session without complaint of pain, however, of increased fatigue with gait training. She was able to tolerate a progression in gait distance with FWW support and SBA. PLAN: Continue with global strengthening, gait and transfer training for improved mobility and activity tolerance. TREATMENT CODE/TIME: Session 1: Refused x2 Session 2: 15 minutes; [id number] (13:58)
[2023-01-13 15:15] VITALS: BP 150/77; PULSE 71; RESP 17; TEMP 36.7; O2SAT 96
--- NOTE | 2023-01-13 17:08 | CHAPLAIN ---
Maryjo said she was feeling better emotionally today, and more prepared to go home. She has some ostomy care teaching today, and said that went well. This afternoon she talked about her family and how much narcisa she has from being a grandmother. She may be discharged tomorrow. She appreciated the prayer shawl I brought her.
[2023-01-13] MEDS: Enoxaparin 40 MG/0.4 ML SYR SC (17:21)
--- NOTE | 2023-01-13 19:33 | W.PM.PROGNOT ---
Date of Service Date of service: 01/13/23 Time of Service: 17:30 Assessment and Plan Assessment and plan (1) Status post colectomy: Status: Acute Assessment and plan: She is doing great. I removed the surgical drain. We will plan for discharge tomrrow. Subjective Subjective Interval history since last seen: She feels great today. She is tolerating diet without any issue and she was able to change the stoma device with some assistance today. Exam GI Other: I removed the FERNANDA dressing. The skin is clean and there is no erythema. Wound is healing nicely. Objective Last Vital Signs Temp 98.1 F 01/13/23 15:15 Pulse 71 01/13/23 15:15 Resp 17 01/13/23 15:15 BP 150/77 H 01/13/23 15:15 Pulse Ox 96 01/13/23 15:15 Laboratory Results - last 24 hr 01/13/23 06:40 Plt Count 396 Time Spent with Patient Time Spent with Patient: <25 minutes Time was spent: preparing to see the patient(eg.review tests), counseling the patient and care coordination
[2023-01-13] MEDS: Zolpidem 5 MG TAB PO (21:09)
[2023-01-13 23:22] VITALS: BP 157/91; PULSE 90; RESP 14; TEMP 36.6; O2SAT 96
[2023-01-14] MEDS: Acetaminophen 500 MG TAB 1000 MG PO ×3 (00:22→11:27)
[2023-01-14] MEDS: oxyCODONE 10 MG TAB PO (00:22)
[2023-01-14] MEDS: Levothyroxine 150 MCG TAB 300 MCG PO (06:38)
--- NOTE | 2023-01-14 06:58 | W.PM.DS.N ---
Date of service: 01/14/23 Time of Service: 06:58 DS: Diagnosis Discharge Diagnosis (1) Status post colectomy: Status: Acute Discharge Plan Disposition Patient Disposition: Home W/Home Health Services Condition: Good Discharge Details Reason For Visit: Colon Cancer Admit Date/Time: 01/08/23 12:09 Admit Provider: Kye Partida Attending Provider: Kye Partida Primary Care Provider: Shayan Headley Hospital Course Hospital Course: Maryjo is a 72-year-old woman with biopsy-proven adenocarcinoma of her colon. She had a past medical history most significant for right hemicolectomy (also for adenocarcinoma). She underwent completion colectomy on January 08. Her postoperative course was complicated by some mild postoperative pain that was managed with a INSURANCE CLAIMS PROCESSOR. She progressed nicely thereafter, was seen by physical therapy to help with ambulation. Diet was slowly advanced and well-tolerated. Surgical drain dried up and was removed. And, she was suitable for discharge with home health services on January 14. Home Meds and New Rx's Prescriptions: Continued levothyroxine 150 mcg capsule 300 mcg PO DAILY prochlorperazine maleate 5 mg tablet 10 mg PO Q6H PRN albuterol sulfate [Ventolin HFA] 90 mcg/actuation HFA aerosol inhaler 2 puff inhalation Q6H PRN cyclobenzaprine 5 mg tablet 0 mg PO HS PRN PRN Rx Instructions: 10-15MG prochlorperazine 25 mg suppository 25 mg HI Q12H PRN pseudoephedrine HCl 30 mg tablet 30 mg PO Q6H PRN rizatriptan 10 mg tablet See Rx Instructions PO .COMPLEX Rx Instructions: take 1 tab at onset of headache; if no relief may repeat 1 tab after at least 2 hrs; max = 3 tabs/24 hr PO triamcinolone acetonide 0.5 % cream 1 applic topical DAILY lorazepam [Ativan] 1 mg tablet 0.5 mg PO Q6H PRN PRN (Reason: anxiety) Qty: 5 0RF Rx Instructions: Do not take w/ narcotics or ambien/sleeping pills pantoprazole [Protonix] 40 mg tablet,delayed release (DR/EC) 40 mg PO DAILY Qty: 90 3RF gabapentin 600 mg Tablet 600 mg PO TID levothyroxine 150 mcg Tablet 300 mcg PO DAILY@0600 fluticasone propionate [Flovent HFA] 44 mcg/actuation HFA aerosol inhaler 44 mcg INHALATION QAM Patient Comments: INHALE TWO PUFFS BY MOUTH EVERY MORNING Rx Instructions: 2 PUFFS EVERY MORNING fluoxetine 40 MG capsule 80 mg PO DAILY zolpidem 5 MG tablet 5 mg PO .QHS risperidone 0.5 MG tablet 0.5 mg PO BID methylphenidate HCl 20 mg tablet 20 mg PO TID PRN Patient Comments: TK 1 T PO TID PRN acetaminophen 500 mg Tablet 1,000 mg PO BID Discontinued bisacodyl [Dulcolax (bisacodyl)] 5 mg tablet,delayed release (DR/EC) 5 mg PO ONCE Qty: 8 0RF Rx Instructions: take per colonoscopy instructions polyethylene glycol 3350 17 gram/dose powder 238 g PO ONCE Qty: 238 0RF Rx Instructions: take per colonoscopy instructions neomycin 500 mg tablet 500 mg PO Q8H Qty: 8 0RF Rx Instructions: as directed for bowel prep metronidazole 500 mg tablet 500 mg PO .COMPLEX Qty: 8 0RF Rx Instructions: 500 mg orally per bowel prep; ondansetron HCl 8 mg tablet 8 mg PO .COMPLEX Qty: 3 0RF Rx Instructions: 8 mg orally; tramadol 50 mg tablet 50 mg PO Q8H PRN ondansetron HCl 4 mg tablet 4 mg PO Q8H PRN No Action hydrocodone-acetaminophen 5-325 mg tablet 1 tab PO QHS PRN Discharge Instructions Instructions: Ileostomy Care (GEN), Ileostomy Diet (GEN), Colectomy (GEN) Additional Instructions: Maryjo, you have done a great job in the early phases of recovering from a big operation. You should feel a little better each day. Do not be alarmed if you have some soreness as her activity levels increase. You should be up and walking a bit every day, and your strength and exercise tolerance should slowly improve. 1. Resume all of your medications from before your surgery. 2. Okay to use tylenol and ibuprofen over the counter as needed for postoperative pain. Please obtain the prescription for tramadol for severe postoperative pain. 3. Shower with warm soapy water and pat all wounds dry. Use a bandaid if needed to protect your clothing. If the surgical sites are clean and dry, you do not need to bandage the 4. No soaking or tub baths until I see you in the office. 5. No heavy lifting (greater than 10 pounds) until I see you in the office. 6. Call the office (or go directly to the emergency room after hours) if you notice any of the following: Develop chills (warm to touch), or if you have a thermometer and your temperature is above 101 Difficulty breathing or difficultly swallowing Persistent vomiting Any bleeding ? exceeding one tablespoon 7. Call your physician if the site where your intravenous was started becomes red, swollen, painful, and warm to touch. 8. Be thoughtful about the character of your ileostomy output. Ideally, it would be the consistency of thick applesauce. If it becomes more watery, make sure that you drink enough liquids to stay well-hydrated. A simple rule of thumb is if you feel thirsty, then drink some water Referrals: Kye Partida MD [ [facility] STAFF PHYSICIAN] - (Follow-up in my office on January 20 at 11 AM) Activity:: Activity as Tolerated Equipment/Supplies:: Ileostomy supplies Diet:: Try anything you like. Read the ileostomy diet document DS: Summary Time Spent with Patient providing and/or coordinating discharge services: Greater than 30 minutes Status at Discharge Functional status at discharge: uses cane/walker Overall status at discharge: patient is progressing back to baseline Mental Status: mental status grossly normal Speech and Movement: speech and movement normal Mood: congruent mood Affect: normal affect Exam Const General: cooperative and comfortable Orientation: awake and oriented x3 Eyes General: appearance normal, both eyes and all related structures Conjunctivae: conjunctivae normal Sclera: sclerae normal Resp Effort & Inspection: normal respiratory effort and able to speak in complete sentences Cardio Jugular venous pressure: no JVD Rate: regular rate GI Inspection: non-distended Palpation: soft, no guarding, no hernias and nontender Auscultation: normal bowel sounds Other: Incision is clean, without erythema, and with a tiny bit of ecchymosis that is resolving. There is no discharge Skin General skin exam: normal turgor Neuro General: patient alert, patient awake and patient oriented x3 Cognition: normal cognition Extrem Right lower extremity: no edema Left lower extremity: no edema Psych Mental Status: mental status grossly normal Speech and Movement: speech and movement normal Mood: congruent mood Affect: normal affect DS: Data Vitals/I&O Vitals and I&O: Vital Signs Temperature 97.9 F 01/13/23 23:22 Temperature Source Tympanic 01/13/23 23:22 Pulse 90 01/13/23 23:22 Pulse Rhythm Regular 01/14/23 01:00 Pulse 102 H 01/10/23 04:00 Respiratory Rate 14 01/13/23 23:22 Respiratory Effort Normal, Non-Labored 01/14/23 01:00 Respiratory Depth Normal 01/14/23 01:00 Respiratory Pattern Normal 01/14/23 01:00 Blood Pressure 157/91 H 01/13/23 23:22 Blood Pressure Mean 83 01/11/23 08:54 Blood Pressure Position Supine 01/09/23 14:43 Pulse Oximetry 96 01/13/23 23:22 Respiratory End-tidal CO2 20 01/08/23 14:05 Oxygen Delivery Method Room Air 01/13/23 23:22 Oxygen Flow Rate 0 01/13/23 23:22 Pain Level 2 01/14/23 06:37 Comment RN notified 01/13/23 03:36 Intake & Output 01/13/23 01/13/23 01/14/23 11:59 23:59 11:59 Intake Total 240 / 240 Output Total 1065 / 1515 250 / 1515 550 / 550 Balance -825 / -1275 -250 / -1275 -550 / -550 Weight 223 lb 1.725 oz Intake: Oral 240 / 240 Output: Drainage 50 / 65 Left Lower Abdomen 50 / 65 Urine 1050 / 1250 200 / 1250 350 / 350 Stool 200 / 200 Other: Urine Color Yellow Yellow Urine Appearance Clear Clear Clear Urine Odor Normal Comment mixed in with stool Stool Characteristics Black Voiding Methods Toilet Toilet Data Completed and Pending Labs on day of discharge: Labs from last 24 hours 01/13/23 06:40 Plt Count 396 PFSH All Active Problems Status post colectomy (Acute) Colon cancer (Chronic) PA (dyspnea on exertion) (Acute) Obesity (Chronic) Iron deficiency anemia (Acute) Elevated cholesterol (Chronic) Anemia (Chronic) Medical History Anxiety Asthma Cecum mass Colon cancer high risk Colon cancer, ascending Depression Dissociative identity disorder Elevated CEA Epistaxis, recurrent GERD (gastroesophageal reflux disease) Hx of small bowel obstruction Hyperlipidemia Hypertension Hypothyroidism Knee arthropathy Migraine headache Primary osteoarthritis of left knee Steroid injection: 09/25/2021 Primary osteoarthritis of right knee Steroid injection: 09/25/2021 PTSD (post-traumatic stress disorder) Per pt. states no current triggers Stage III carcinoma of colon (~08/06/20) Thrombocythemia Surgical History History of arthroscopy of right knee History of cholecystectomy History of colonoscopy (~10/2021) History of tonsillectomy S/P right hemicolectomy S/P right rotator cuff repair Social History Smoking/Tobacco Use Status: Former Tobacco Use Quit Date: 11/15/65 Smoking risk assessment performed?: Yes Alcohol Intake: former Drug use: Occasionally Substance use type: marijuana Do you feel safe at home: Yes Do you feel safe in your relationship?: Yes Time Spent with Patient Time Spent with Patient: 45-69 minutes Time was spent: preparing to see the patient(eg.review tests), referring, communicating with other health healthcare or medical, counseling the patient and care coordination
[2023-01-14 07:21] VITALS: BP 138/81; PULSE 90; RESP 16; TEMP 36.6; O2SAT 95
[2023-01-14] MEDS: Normal Saline Flush 10 ML SYR IVP ×3 (07:45→14:16)
[2023-01-14] MEDS: FLUoxetine 20 MG CAP 80 MG PO (07:45)
[2023-01-14] MEDS: Pantoprazole 40 MG VIAL IV (07:45)
[2023-01-14] MEDS: risperiDONE 0.5 MG TAB PO (07:45)
[2023-01-14] MEDS: Gabapentin 600 MG TAB PO ×2 (07:45→13:36)
--- NOTE | 2023-01-14 08:47 | OT.INIE ---
Occupational Therapy Notes Inpatient Occupational Therapy Evaluation Date: 01/14/23 Referring Doctor:Laurie Arias MD OT Orders: Urgent: Weakness Precautions: Fall, Standard, full PATIENT PROFILE/ADMITTING DIAGNOSIS: Pt is a 72 year old female who was admitted for the following after she underwent surgery on 01/08/23 for colectomy with creation of end ileostomy secondary to cancer. She had previous surgery and chemotherapy, but recent colonoscopy found additional lesions. Past Medical History: All Active Problems?(Updated 01/08/23 @ 17:45 by Kye Partida MD) Colon cancer (Chronic) PA (dyspnea on exertion) (Acute) Obesity (Chronic) Iron deficiency anemia (Acute) Elevated cholesterol (Chronic) Anemia (Chronic) Medical History?(Updated 01/08/23 @ 17:45 by Kye Partida MD) Anxiety Asthma Cecum mass Colon cancer high risk Colon cancer, ascending Depression Dissociative identity disorder Elevated CEA Epistaxis, recurrent GERD (gastroesophageal reflux disease) Hx of small bowel obstruction Hyperlipidemia Hypertension Hypothyroidism Knee arthropathy Migraine headache Primary osteoarthritis of left knee Steroid injection: 1Primary osteoarthritis of right knee Steroid injection: 1PTSD (post-traumatic stress disorder) Per pt. states no current triggersStage III carcinoma of colon (~08/06/20) Thrombocythemia Surgical History? History of arthroscopy of right knee History of cholecystectomy History of colonoscopy (~10/2021) History of tonsillectomy S/P right hemicolectomy S/P right rotator cuff repair Social History/Home Situation: Pt states that she lives in a private home with her . She notes that she is receiving HH services prior and would like to continue this. She states that she has difficulty with her LE dressing and bathing at times but notes that she has a really supportive who can (A) her as needed. She typically performs her functional mobility with a cane. Equipment owned/DME: JONI nair SUBJECTIVE: Pt states that she is doing well. She notes that the plan is for her to return home with her . She states that she is looking forward to this but would like to resume HH services if possible. OBJECTIVE: General Observation: Pleasnant, colostomy, IV in (R) UE Mental Status: A&Ox4 Pain: no c/o pain during OT session ROM: RUE WFL for performance of her ADLS L UE WFL for performance of her ADLS STRENGTH: RUE 3+/5 throughout LUE 4/5 throughout FUNCTIONAL MOBILITY/ADLS: Self Care Training [id number]: OT educated and trained pt in adaptive equipment including sock aid, dressing stick and horticultural therapist to be used to (A) with (I) in her ADL performance. EATING seated in chair (I) with hand to mouth and appropriate use of silverware. BALANCE: Static sitting Good Dynamic Sitting Good SPECIAL TESTS: Daily Activity Limitations Standardized Measure [facility] AM -PAC ?6 clicks? Daily Activity Inpatient Short Form: Raw score: 20 Standardized score: 42.03 CMS score: 38.32% INFORMED CONSENT/EDUCATION: Pt instructed in purpose of OT Consult and plan of care. ASSESSMENT: Patient is a 72-year-old female referred to occupational therapy services with diagnosis of underwent surgery on 01/08/23 for colectomy with creation of end ileostomy secondary to cancer. She had previous surgery and chemotherapy, but recent colonoscopy found additional lesions . Patient presents with clinical signs and symptoms consistent with dx, as demonstrated by the following impairment level findings/ functional limitations: Impairments in ADL/IADL routines, decreased functional activity tolerance, increased fatigue, decreased (I) in energy conservation. Patient is assessed as a Low 18440 complexity based on the following: History: see above Examination: see functional limitations as noted above Presentation: evolving Decision Making: low complexity GOALS N/A seen for OT consult only. PLAN OF CARE/TREATMENT PLAN: See for OT consult only. DISCHARGE RECOMMENDATIONS Home with OT when medically cleared per MD. OT recommends the following- Shower seat for increased safety awareness during bathing Hand held shower held Grab bars in shower to (A) with safety Commode to increased safety with toileting routine during her nighttime routine. TREATMENT TIME/MINUTES/CODES 15485, [id number], 20 minutes (08:15) MACIE Cavazos/[facility]
[2023-01-14] MEDS: Mometasone 220 MCG 14 DOSE INHALER 1 PUFF IH (08:58)
[2023-01-14] MEDS: LORazepam 2 MG/ML VIAL 0.5 MG IVP (12:07)
--- NOTE | 2023-01-14 12:36 | PDOC.HHF2F_ITS ---
Home Health Referral Registered Nurse: Check all that apply Instruct on new or changed medication(s)/assess compliance: Ordered Instruct on ostomy care: Ordered Assess for exacerbation of medical condition, instruct patient/caregivers on signs and symptoms to report for early detection: Ordered Physical Therapist: Check all that apply Increase strength & endurance for safe mobility at home: Ordered To design/establish home maintenance program: Ordered Home safety evaluation and teaching/gait training including stair management (if applicable): Ordered Occupational Therapist: Evaluate and treat for patient unable to perform ADL/IADL/self-care: Ordered Home Bound Status Requires the aid of supportive device (check all that apply): Walker Patient has a condition such that leaving home is medically contraindicated (Describe): cannot drive/recen surgery Encounter Date and Reason: I certify that a FTF encounter for this patient was performed on January 14, 2023 and that such encounter was related to the primary reason the patient requires home health services. The encounter was conducted in the following manner: * By me as the certifying physician, PHYSICIAN UNDERWRITER, PA or * By an inpatient physician, PHYSICIAN UNDERWRITER or PA during an inpatient stay who communicated findings to me, Certification And Authentication I certify that I composed the above information based on my clinical judgment relating to this patient's medical condition and, if applicable, clinical findings communicated to me by the NPP or inpatient physician who performed the FTF encounter. Name of Provider that will be monitoring home health services: Kye Partida
--- NOTE | 2023-01-14 13:27 | PT.INTREAT ---
Date of service: 01/14/23 Time of Service: 13:00 PT Notes Visit Reasons: Colon Cancer Inpatient Physical Therapy Treatment Note [facility] Date: 01/14/2023 PRECAUTIONS: Activity as tolerated SUBJECTIVE: Maryjo is pleasant and agreeable to participating in PT. She reports that she is excited about discharging to home later today. OBJECTIVE: Issued FWW for patient's use at home upon discharge. Completed [facility] form and submitted to Care Management. PAIN: No c/o pain during PT session BED MOBILITY/TRANSFERS Supine-sit: Min A Sit-stand: I Stand-sit: I GAIT Assistive Device: FWW Weight bearing: Full Assist: S Distance: 120' Deviation: Improved pacing, no c/o pain nor SOB TOILETING: Patient toileted independently ASSESSMENT: Patient tolerated session without complaint of pain, however, of increased fatigue with gait training. She was able to tolerate a progression in gait distance with FWW support and SBA. PLAN: Patient to discharge to home later today, per provider. Recommend PT upon discharge. TREATMENT CODE/TIME: Session 1: Hold x2 Session 2: 15 minutes; 30789 (13:00)
[2023-01-14] MEDS: Heparin 500 UNITS/5 ML SYRINGE IVP (14:15)
--- NOTE | 2023-01-14 14:53 | W.PM.DS.N ---
Date of service: 01/14/23 Time of Service: 14:56 DS: Diagnosis Discharge Diagnosis (1) Status post colectomy: Status: Acute Discharge Plan Disposition Patient Disposition: Home W/Home Health Services Condition: Good Discharge Details Reason For Visit: Colon Cancer Admit Date/Time: 01/08/23 12:09 Admit Provider: Kye Partida Attending Provider: Kye Partida Primary Care Provider: Shayan Headley Hospital Course Hospital Course: Maryjo is a 72-year-old woman with biopsy-proven adenocarcinoma of her colon. She had a past medical history most significant for right hemicolectomy (also for adenocarcinoma). She underwent completion colectomy on January 08. Her postoperative course was complicated by some mild postoperative pain that was managed with a [employer]ESS [employer] MACHINE TENDER. She progressed nicely thereafter, was seen by physical therapy to help with ambulation. Diet was slowly advanced and well-tolerated. Surgical drain dried up and was removed. And, she was suitable for discharge with home health services on January 14. Home Meds and New Rx's Prescriptions: New oxycodone 5 mg tablet 5 mg PO Q8H PRN (Reason: pain) Qty: 15 0RF Rx Instructions: Take 1 tablet by mouth up to every 8 hours if needed for severe pain. Do not drive while taking this medication. Continued levothyroxine 150 mcg capsule 300 mcg PO DAILY prochlorperazine maleate 5 mg tablet 10 mg PO Q6H PRN albuterol sulfate [Ventolin HFA] 90 mcg/actuation HFA aerosol inhaler 2 puff inhalation Q6H PRN cyclobenzaprine 5 mg tablet 0 mg PO HS PRN PRN Rx Instructions: 10-15MG prochlorperazine 25 mg suppository 25 mg [place] Q12H PRN pseudoephedrine HCl 30 mg tablet 30 mg PO Q6H PRN rizatriptan 10 mg tablet See Rx Instructions PO .COMPLEX Rx Instructions: take 1 tab at onset of headache; if no relief may repeat 1 tab after at least 2 hrs; max = 3 tabs/24 hr PO triamcinolone acetonide 0.5 % cream 1 applic topical DAILY lorazepam [Ativan] 1 mg tablet 0.5 mg PO Q6H PRN PRN (Reason: anxiety) Qty: 5 0RF Rx Instructions: Do not take w/ narcotics or ambien/sleeping pills pantoprazole [Protonix] 40 mg tablet,delayed release (DR/EC) 40 mg PO DAILY Qty: 90 3RF gabapentin 600 mg Tablet 600 mg PO TID levothyroxine 150 mcg Tablet 300 mcg PO DAILY@0600 fluticasone propionate [Flovent HFA] 44 mcg/actuation HFA aerosol inhaler 44 mcg INHALATION QAM Patient Comments: INHALE TWO PUFFS BY MOUTH EVERY MORNING Rx Instructions: 2 PUFFS EVERY MORNING fluoxetine 40 MG capsule 80 mg PO DAILY zolpidem 5 MG tablet 5 mg PO .QHS risperidone 0.5 MG tablet 0.5 mg PO BID methylphenidate HCl 20 mg tablet 20 mg PO TID PRN Patient Comments: TK 1 T PO TID PRN acetaminophen 500 mg Tablet 1,000 mg PO BID Discontinued bisacodyl [Dulcolax (bisacodyl)] 5 mg tablet,delayed release (DR/EC) 5 mg PO ONCE Qty: 8 0RF Rx Instructions: take per colonoscopy instructions polyethylene glycol 3350 17 gram/dose powder 238 g PO ONCE Qty: 238 0RF Rx Instructions: take per colonoscopy instructions neomycin 500 mg tablet 500 mg PO Q8H Qty: 8 0RF Rx Instructions: as directed for bowel prep metronidazole 500 mg tablet 500 mg PO .COMPLEX Qty: 8 0RF Rx Instructions: 500 mg orally per bowel prep; ondansetron HCl 8 mg tablet 8 mg PO .COMPLEX Qty: 3 0RF Rx Instructions: 8 mg orally; tramadol 50 mg tablet 50 mg PO Q8H PRN ondansetron HCl 4 mg tablet 4 mg PO Q8H PRN No Action hydrocodone-acetaminophen 5-325 mg tablet 1 tab PO QHS PRN Discharge Instructions Instructions: Ileostomy Care (GEN), Ileostomy Diet (GEN), Colectomy (GEN) Additional Instructions: Maryjo, you have done a great job in the early phases of recovering from a big operation. You should feel a little better each day. Do not be alarmed if you have some soreness as her activity levels increase. You should be up and walking a bit every day, and your strength and exercise tolerance should slowly improve. 1. Resume all of your medications from before your surgery. 2. Okay to use tylenol and ibuprofen over the counter as needed for postoperative pain. Please obtain the prescription for oxycodone for severe postoperative pain. 3. Shower with warm soapy water and pat all wounds dry. Use a bandaid if needed to protect your clothing. If the surgical sites are clean and dry, you do not need to bandage the 4. No soaking or tub baths until I see you in the office. 5. No heavy lifting (greater than 10 pounds) until I see you in the office. 6. Call the office (or go directly to the emergency room after hours) if you notice any of the following: Develop chills (warm to touch), or if you have a thermometer and your temperature is above 101 Difficulty breathing or difficultly swallowing Persistent vomiting Any bleeding ? exceeding one tablespoon 7. Call your physician if the site where your intravenous was started becomes red, swollen, painful, and warm to touch. 8. Be thoughtful about the character of your ileostomy output. Ideally, it would be the consistency of thick applesauce. If it becomes more watery, make sure that you drink enough liquids to stay well-hydrated. A simple rule of thumb is if you feel thirsty, then drink some water Stand Alone Forms: Nursing Discharge Form Referrals: Kye Partida MD [ [facility] STAFF PHYSICIAN] - 01/20/23 11:00 am (Follow-up in my office on January 20 at 11 AM) Activity:: Activity as Tolerated Equipment/Supplies:: Ileostomy supplies Diet:: Try anything you like. Read the ileostomy diet document Discharge Orders Discharge Orders: Discharge Order (Routine); Ordered 01/14/23 Ordered By: Kye Partida DS: Summary Time Spent with Patient providing and/or coordinating discharge services: Greater than 30 minutes Status at Discharge Functional status at discharge: uses cane/walker Overall status at discharge: patient is progressing back to baseline Mental Status: mental status grossly normal Speech and Movement: speech and movement normal Mood: congruent mood Affect: normal affect Exam Psych Mental Status: mental status grossly normal Speech and Movement: speech and movement normal Mood: congruent mood Affect: normal affect DS: Data Vitals/I&O Vitals and I&O: Vital Signs Temperature 97.9 F 01/14/23 07:21 Temperature Source Tympanic 01/14/23 07:21 Pulse 90 01/14/23 07:21 Pulse Rhythm Regular 01/14/23 07:45 Pulse 102 H 01/10/23 04:00 Respiratory Rate 16 01/14/23 07:21 Respiratory Effort Normal, Non-Labored 01/14/23 07:45 Respiratory Depth Normal 01/14/23 07:45 Respiratory Pattern Normal 01/14/23 07:45 Blood Pressure 138/81 01/14/23 07:21 Blood Pressure Mean 83 01/11/23 08:54 Blood Pressure Position Supine 01/09/23 14:43 Pulse Oximetry 95 01/14/23 07:21 Respiratory End-tidal CO2 20 01/08/23 14:05 Oxygen Delivery Method Room Air 01/14/23 07:21 Oxygen Flow Rate 0 01/14/23 07:21 Pain Level 1 01/14/23 07:21 Comment RN notified 01/13/23 03:36 Intake & Output 01/13/23 01/14/23 01/14/23 23:59 11:59 23:59 Output Total 250 / 1515 950 / 950 Balance -250 / -1275 -950 / -950 Output: Drainage 50 / 65 Left Lower Abdomen 50 / 65 Urine 200 / 1250 750 / 750 Stool 200 / 200 Other: Urine Color Yellow Yellow Urine Appearance Clear Clear Urine Odor Normal None Comment Voided in toilet Voiding Methods Toilet Toilet PFSH All Active Problems Status post colectomy (Acute) Colon cancer (Chronic) PA (dyspnea on exertion) (Acute) Obesity (Chronic) Iron deficiency anemia (Acute) Elevated cholesterol (Chronic) Anemia (Chronic) Medical History Anxiety Asthma Cecum mass Colon cancer high risk Colon cancer, ascending Depression Dissociative identity disorder Elevated CEA Epistaxis, recurrent GERD (gastroesophageal reflux disease) Hx of small bowel obstruction Hyperlipidemia Hypertension Hypothyroidism Knee arthropathy Migraine headache Primary osteoarthritis of left knee Steroid injection: 09/25/2021 Primary osteoarthritis of right knee Steroid injection: 09/25/2021 PTSD (post-traumatic stress disorder) Per pt. states no current triggers Stage III carcinoma of colon (~08/06/20) Thrombocythemia Surgical History History of arthroscopy of right knee History of cholecystectomy History of colonoscopy (~10/2021) History of tonsillectomy S/P right hemicolectomy S/P right rotator cuff repair Social History Smoking/Tobacco Use Status: Former Tobacco Use Quit Date: 11/15/65 Smoking risk assessment performed?: Yes Alcohol Intake: former Drug use: Occasionally Substance use type: marijuana Do you feel safe at home: Yes Do you feel safe in your relationship?: Yes Time Spent with Patient Time Spent with Patient: <45 minutes Time was spent: referring, communicating with other health career specialist, counseling the patient and care coordination
--- NOTE | 2023-01-14 15:58 | CMDISCH_ITS ---
- If Service Date Differs Date of service: 01/14/23 Time of Service: 15:58 LACE Index Scoring Tool - Questions: Length of Stay (in days): 4 - 6 Acuity (Admit via E.D.?): Yes Comorbidities: Any Tumor E.D. Visits: 0 - Answers: Total Score: 9 Risk of Readmission: Low Risk Care Management Discharge Reason for Hospitalization: Colon cancer. Discharge Plan: Maryjo returned home today with new orders for HH RN, PT, OT. called [facility] to inform them of her discharge, and requested that she be seen tomorrow, if possible. Maryjo's drove her home via private vehicle. CM requested a lift assist from [employer] to help get Maryjo into their home. She will follow up with surgical services on 01/20/23. [facility] sent Maryjo with supplies which should last her until this follow up appointment. PT provided a FWW from [employer]. She was very happy to be going home. Patient/Family Education Needs: Review discharge instructions and limitations, discussion of self care needs including ask me three. Services Needed at Discharge: Home Health Care Services (HH RN, PT, OT), Transportation (lift assist, [employer])
--- NOTE | 2023-01-14 16:34 | CHAPLAIN ---
Maryjo said she was being discharged this afternoon and very much looking forward to being home. She said she feels ready to come home and wants to get cleaned up and get into my own bed. She shared some personal history, telling me about some events in the 60s when she was involved in protests, and how she met her . All my dreams have come true, she said of her life. As she prepares for more chemo treatments at [facility], Maryjo said she believes that she needs to be strong to lead her and family through this because this is her role, and what she's always done.
--- NOTE | 2023-01-20 09:59 | INDS_ITS ---
Date of service: 01/20/23 PT Notes Visit Reasons: Colon Cancer Physical Therapy Inpatient Discharge Summary Date: 01/20/23 Dates of service: 01/09/2023 through 01/14/2023 This is a clinical summary of care provided for the duration of dates listed above. No charge was made in the completion of this documentation. Referring Doctor: Kye Partida PT Orders: PT CONSULT: Limited ability Precautions: Fall. Standard. Abdominal surgery. Head of bed elevated to 45 degrees for NG tube. Patient Profile/Admitting Diagnosis:?Maryjo is 72 yo female that underwent surgery on 01/08/23 for colectomy with creation of end ileostomy secondary to cancer. She had previous surgery and chemotherapy, but recent colonoscopy found additional lesions. Patient is POD #1 and having difficulty with pain management. PMHX: See EMR Social History/Home Situation: Lives with spouse and a daughter is staying there. Only lives on main level of home, has 6 LEAH. Equipment Owned/DME: Cane Subjective:? NT. See most recent SALES AND MANAGEMENT TRAINEE notes. Objective:? General Observation: NT. See most recent SALES AND MANAGEMENT TRAINEE notes. Mental Status: NT. See most recent SALES AND MANAGEMENT TRAINEE notes. Pain: NT. See most recent SALES AND MANAGEMENT TRAINEE notes. ROM: Right Upper Extremity: Shoulder Flexion WFL. Shoulder abduction WFL. Elbow flexion WFL. Wrist flexion WFL. Opening and closing of hand WFL. Left Upper Extremity: Shoulder Flexion WFL. Shoulder abduction WFL. Elbow flexion WFL. Wrist flexion WFL. Opening and closing of hand WFL. Right Lower Extremity: Hip flexion WFL. Hip abduction WFL. Knee flexion WFL. Ankle dorsiflexion WFL. Ankle plantarflexion WFL. Left Lower Extremity: Hip flexion WFL. Hip abduction WFL. Knee flexion WFL. Ankle dorsiflexion WFL. Ankle plantarflexion WFL. Strength: Right Upper Extremity: Not formally assessed due to abdominal pain Left Upper Extremity: Not formally assessed due to abdominal pain Right Lower Extremity: Not formally assessed due to abdominal pain Left Lower Extremity: Not formally assessed due to abdominal pain Sensation:?Intact as to pain and pressure on bilateral lower extremities. BED MOBILITY/TRANSFERS? Supine: Min A Sit-stand: SBA? Stand-sit: SBA ? GAIT? Assistive Device: FWW? Weight bearing: Full Assist: SBA ? Distance:? 100'? Deviation: Improved pacing, no c/o pain nor SOB Balance:? Sitting static: Normal Sitting dynamic: Normal Standing static: Fair Standing dynamic: Fair Assessment: Patient presents with clinical signs and symptoms consistent with current/admitting diagnoses that have resulted to mobility limitations, gait instability, generalized weakness, and impairment of motor control as de monstrated by the following impairment level findings: 1. Decreased strength to all major muscle groups 2. Impaired sitting/standing balance 3. Impaired activity tolerance 4. Limitation of trunk mobility Impairments are contributing to the following functional limitations: 1. Dependent bed mobility skills 2. Dependence with transfers 3. Inability to safely ambulate without assistive device and physical assistance 4. Increase completion time for mobility ADL performance 5. Increased fall risk 6. Inability to negotiate steps alone safely Goals: Goals x1 week 1. Supine-Sit: Mod A MET 2. Sit-Supine: Mod A MET 3. Sit-Stand: Mod A MET 4. Stand-Sit: Mod A MET 5. Bed-Chair: Mod A MET 6. Chair-Bed: Mod A MET 7. Independent gait on level surface with use of least restrictive device for at least 300 feet without report of pain nor dyspnea MET 8. Good static and dynamic standing balance/tolerance MET 9. Independent with home exercise program MET 10. Min A with bed mobility Discharge Plan DISCHARGE RECOMMENDATIONS: SNF for continued rehabilitation TREATMENT CODE/TIME: MI Thank you for the opportunity to participate in the care of this patient. Madhavi Humphries PT, DPT, CLT [facility] [place], [place]
== END 2023-01-14 15:09 | disposition home health service (06) | DRG 330 ==
LOC: MS 14:25 → ICU 01-09 13:49 → MS 01-12 08:14
PROVIDERS: Student in an Organized Health Care Education/Training Program; Admitting Provider Surgery; PCP Neuromusculoskeletal Medicine & OMM; Visit Provider Surgery
PROC: 0D1B0Z4 Bypass Ileum to Cutaneous, Open Approach (ICD-10-PCS; CPT 44140; principal; 2023-01-08 07:30)
DX: C18.7 Malignant neoplasm of sigmoid colon (principal); C20 Malignant neoplasm of rectum; E66.9 Obesity, unspecified; Z68.39 Body mass index [BMI] 39.0-39.9, adult; F41.9 Anxiety disorder, unspecified; J45.909 Unspecified asthma, uncomplicated; D50.9 Iron deficiency anemia, unspecified; E78.00 Pure hypercholesterolemia, unspecified; F44.81 Dissociative identity disorder; F32.A Depression, unspecified; K21.9 Gastro-esophageal reflux disease without esophagitis; E78.5 Hyperlipidemia, unspecified; I10 Essential (primary) hypertension; E03.9 Hypothyroidism, unspecified; M17.0 Bilateral primary osteoarthritis of knee; D75.839 Thrombocytosis, unspecified; F43.10 Post-traumatic stress disorder, unspecified; G43.909 Migraine, unspecified, not intractable, without status migrainosus; G89.18 Other acute postprocedural pain
CPT/HCPCS: 44155; 76942; 80048; 80053; 87635; 88305; 88360; 94640; 97163; 97165; 97530; 97535; 99221; J1650; 85025; 85049; 88307; 88309; 88361; 94664; J0131; J0690; J1100; J1170; J1644; J1885; J2060; J2270; J2370; J2405; J3475

== ENCOUNTER → 2023-01-20 11:00 | Outpatient (BNVA) | payer MEDICARE, SELFPAY | PROVIDERS: PCP Neuromusculoskeletal Medicine & OMM; Referring Provider Neuromusculoskeletal Medicine & OMM; Visit Provider Surgery | DX: Z48.815 Encounter for surgical aftercare following surgery on the digestive system (principal); C18.9 Malignant neoplasm of colon, unspecified ==

== ENCOUNTER → 2023-01-29 10:37 | Outpatient (BNVA) | payer MEDICARE, SELFPAY | PROVIDERS: PCP Neuromusculoskeletal Medicine & OMM; Referring Provider Neuromusculoskeletal Medicine & OMM; Visit Provider Surgery | DX: Z48.815 Encounter for surgical aftercare following surgery on the digestive system (principal); Z87.19 Personal history of other diseases of the digestive system; E78.5 Hyperlipidemia, unspecified ==

== ENCOUNTER → 2023-02-12 10:59 | Outpatient (BNVA) | payer MEDICARE, SELFPAY | PROVIDERS: PCP Neuromusculoskeletal Medicine & OMM; Referring Provider Neuromusculoskeletal Medicine & OMM; Visit Provider Surgery | DX: Z48.815 Encounter for surgical aftercare following surgery on the digestive system (principal); C18.7 Malignant neoplasm of sigmoid colon ==

== ENCOUNTER → 2023-02-24 15:08 | Outpatient (BNVA) | payer MEDICARE, SELFPAY | PROVIDERS: PCP Neuromusculoskeletal Medicine & OMM; Referring Provider Neuromusculoskeletal Medicine & OMM; Visit Provider Surgery | DX: C18.7 Malignant neoplasm of sigmoid colon (principal); Z48.815 Encounter for surgical aftercare following surgery on the digestive system ==

== ENCOUNTER 2023-03-26 01:02 | Outpatient (RCR) | payer MEDICARE, SELFPAY ==
[2023-03-26] MEDS: Heparin 500 UNITS/5 ML SYRINGE IV (14:11)
[2023-03-26] MEDS: Normal Saline Flush 10 ML SYR IVP (14:11)
[2023-03-26 14:21] LABS: Abs Immature Grans 0.01 10^3/uL (0.0-0.06); Absolute Basophil Count 0.02 10^3/uL (0.0-0.2); Absolute Eosinophil Count 0.11 10^3/uL (0.0-0.7); Absolute Lymphocyte Count 1.52 10^3/uL (1.2-3.4); Absolute Monocyte Count 0.59 10^3/uL (0.1-0.8); Absolute Neutrophil Count 4.71 10^3/uL (1.2-6.7); Basophils % 0.3; Eosinophils % 1.6; HCT 38.8 % (36.0-46.0); HGB 12.6 g/dL (11.2-15.7); Immature Grans % 0.1; Lymphocytes % 21.8; MCH 28.9 pg (27.0-33.0); MCHC 32.5 % (32.0-36.0); MCV 89 fL (80-95); MPV 8.3 fL (8.0-11.0); Monocytes % 8.5; Neutrophils % 67.7; Platelet Count 389 10^3/uL (130-400); RBC 4.36 10^6/uL (3.93-5.22); RDW 12.5 % (11.7-14.6); RDW-SD 40.8 fL; WBC 6.96 10^3/uL (4.4-10.8)
[2023-03-26 14:37] LABS: ALT 50 U/L (14-59); AST 48 U/L (15-37); Albumin 2.9 g/dL (3.4-5.0); Alkaline Phosphatase 157 U/L (46-116); Anion Gap 8.4 mmol/L (3-11); BUN 21 mg/dL (7-18); Bilirubin, Total 0.3 mg/dL (0.2-1.0); CO2 23.6 mmol/L (21.0-32.0); CREATININE 1.1 mg/dL (0.55-1.02); Calcium 9.5 mg/dL (8.5-10.1); Chloride 106 mmol/L (98-107); Estimated GFR 53.39 (mL/min/1.73m2); Glucose 105 mg/dL (74-106); Potassium 4.4 mmol/L (3.5-5.1); Sodium 138 mmol/L (136-145); Total Protein 7.3 g/dL (6.4-8.2)
[2023-03-26 23:15] LABS: CEA 16.6 ng/mL (See Note)
== END 2023-04-14 23:59 | disposition home or self-care (01) ==
LOC: INF 01:02
PROVIDERS: Internal Medicine Hematology & Oncology; PCP Neuromusculoskeletal Medicine & OMM; Visit Provider Internal Medicine
DX: C18.9 Malignant neoplasm of colon, unspecified (principal); Z45.2 Encounter for adjustment and management of vascular access device
CPT/HCPCS: 36591; 80053; 82378; 85025

== ENCOUNTER 2023-06-30 02:34 | Outpatient (RCR) | payer MEDICARE, MEDICAID, SELFPAY ==
[2023-06-30] MEDS: Normal Saline Flush 10 ML SYR IVP (13:46)
[2023-06-30] MEDS: Heparin 500 UNITS/5 ML SYRINGE IV (13:46)
== END 2023-07-15 23:59 | disposition home or self-care (01) ==
LOC: INF 02:34
PROVIDERS: PCP Neuromusculoskeletal Medicine & OMM; Visit Provider Internal Medicine
DX: Z93.2 Ileostomy status (principal); Z85.038 Personal history of other malignant neoplasm of large intestine; C18.9 Malignant neoplasm of colon, unspecified; Z45.2 Encounter for adjustment and management of vascular access device
CPT/HCPCS: 96523

== ENCOUNTER 2023-08-04 13:16 | Emergency (ER) | payer MEDICARE, MEDICAID, SELFPAY ==
[2023-08-04 13:13] VITALS: BP 128/107; PULSE 78; RESP 18; TEMP 36.9; O2SAT 98
--- NOTE | 2023-08-04 13:45 | DI.RAD_ITS ---
Exam(s) XR ELBOW RT COMPLETE EXAM: XR ELBOW RT COMPLETE CLINICAL HISTORY: pain s/p fall. TECHNIQUE: 2D digital imaging was performed. Three views. COMPARISON: No exams were available for comparison FINDINGS: BONES: No acute fracture is present. No bony destructive lesion is seen. JOINTS: The elbow is normally aligned. No joint effusion is seen. SOFT TISSUE: Normal. IMPRESSION: Unremarkable radiographs of the right elbow. DATA REPOSITORY: RADIATION DOSE DELIVERED:
--- NOTE | 2023-08-04 13:50 | ED.GENADUL_ITS ---
Discharge Plan Disposition Patient Disposition: Home Condition: Stable Discharge Details Clinical Impression: Fall, Contusion of right elbow Primary Care Provider: Shayan Headley ED Provider: Martell Mohamud Newnan Meds and New Rx's Prescriptions: Continued levothyroxine 150 mcg capsule 300 mcg PO DAILY prochlorperazine maleate 5 mg tablet 10 mg PO Q6H PRN albuterol sulfate [Ventolin HFA] 90 mcg/actuation HFA aerosol inhaler 2 puff inhalation Q6H PRN cyclobenzaprine 5 mg tablet 0 mg PO HS PRN PRN Rx Instructions: 10-15MG prochlorperazine 25 mg suppository 25 mg MI Q12H PRN pseudoephedrine HCl 30 mg tablet 30 mg PO Q6H PRN rizatriptan 10 mg tablet See Rx Instructions PO .COMPLEX Rx Instructions: take 1 tab at onset of headache; if no relief may repeat 1 tab after at least 2 hrs; max = 3 tabs/24 hr PO triamcinolone acetonide 0.5 % cream 1 applic topical DAILY nystatin 100,000 unit/gram powder 1 applic topical DAILY Qty: 60 12RF lorazepam [Ativan] 1 mg tablet 0.5 mg PO Q6H PRN PRN (Reason: anxiety) Qty: 5 0RF Rx Instructions: Do not take w/ narcotics or ambien/sleeping pills morphine concentrate 100 mg/5 mL (20 mg/mL) solution See Rx Instructions PO Q4H MDD 120 mg PRN (Reason: pain or dyspnea) Qty: 30 0RF Rx Instructions: 0.25-1.0 ml orally every 4 hours PRN; HOSPICE lorazepam 1 mg tablet 1 mg PO Q4H PRN (Reason: anxiety) Qty: 10 5RF Rx Instructions: hospice methylphenidate HCl 20 mg tablet See Rx Instructions PO TID MDD 4 tabs Qty: 28 0RF Rx Instructions: take 2 tablets am, 1 tablet noon and 1 tablet in the afternoon hospice for cancer related fatigue hydromorphone 2 mg tablet 2 mg PO Q4H MDD 4 tabs PRN (Reason: pain) Qty: 20 0RF Rx Instructions: hospice pantoprazole [Protonix] 40 mg tablet,delayed release (DR/EC) 40 mg PO DAILY Qty: 90 3RF gabapentin 600 mg Tablet 600 mg PO TID levothyroxine 150 mcg Tablet 300 mcg PO DAILY@0600 fluticasone propionate [Flovent HFA] 44 mcg/actuation HFA aerosol inhaler 44 mcg INHALATION QAM Patient Comments: INHALE TWO PUFFS BY MOUTH EVERY MORNING Rx Instructions: 2 PUFFS EVERY MORNING fluoxetine 40 MG capsule 80 mg PO DAILY zolpidem 5 MG tablet 5 mg PO .QHS risperidone 0.5 MG tablet 0.5 mg PO BID methylphenidate HCl 20 mg tablet 20 mg PO TID PRN Patient Comments: TK 1 T PO TID PRN acetaminophen 500 mg Tablet 1,000 mg PO BID Discharge Instructions Instructions: Contusion in Adults (ED) Additional Instructions: follow up with your hospice provider and take your regularly prescribed pain medications Medical Decision Making 73 yo female with hx of colon cancer no longer receiving treatment and is on hospice comes in with ems after a fall. She states she went out to see if her meals on wheels was on her porch, came back in and fell over. Unclear if she tripped or lost balance, denies loc. Was too weak and her right elbow hurt so she was unable to get up. She denies fevers, chills, chest pain, vomiting, headache. She has a 3cm superficial abrasion on the medial right elbow, full rom, mild tenderness. Normal sensation and pulses. Discussed with pt that when on hospice main goal is for comfort and don't usually obain broad thorough workups and she is in agreement with this, but she would like to know that if she broke her elbow. Will obtain xrays of her right elbow and give a dose of hydromorphone which she normally takes at home. pt sleeping and awakens easily to voice, xray negative, she feels well and requests d/c, advised to f/u with her hospice providers Differential Diagnosis Differential Diagnosis: contusion, sprain, fracture Medical Records Medical records reviewed: Yes I reviewed the patient's medical records. Imaging Data Radiologic Study: Attestation: I personally reviewed and interpreted this imaging study as follows: Imaging: X-Ray My impression: Radiologist's impression: no acute findings HPI General Mode of arrival: EMS . Date/Time Provider Initiated Documentation: 08/04/23 13:33 . Limitations to Documentation: no limitations . Information obtained by: patient . History of Present Illness 73 year old F presents to the emergency department with the chief complaint of fall, right elbow pain, described as moderate, Quality is described as aching, Patient started experiencing this hour(s) (4) and it has been constant. No relieving factors improve symptom(s), No exacerbating factors reported . Patient notes no other symptoms.. Patient did receive the following treatments prior to arrival, none Related Data Home Medications Medication Instructions Recorded Confirmed fluoxetine 40 mg capsule 80 mg PO DAILY 05/02/17 02/26/23 risperidone 0.5 mg tablet 0.5 mg PO BID 05/02/17 02/26/23 zolpidem 5 mg tablet 5 mg PO .QHS 05/02/17 02/26/23 methylphenidate HCl 20 mg tablet 20 mg PO TID PRN 07/15/20 02/26/23 acetaminophen 500 mg tablet 1,000 mg PO BID 08/09/20 02/26/23 albuterol sulfate 90 mcg/actuation 2 puff inhalation Q6H PRN 09/16/21 02/26/23 aerosol inhaler (Ventolin HFA) prochlorperazine maleate 5 mg 10 mg PO Q6H PRN 09/16/21 02/26/23 tablet cyclobenzaprine 5 mg tablet 0 mg PO HS PRN PRN 10/30/21 02/26/23 prochlorperazine 25 mg rectal 25 mg MI Q12H PRN 10/30/21 02/26/23 suppository pseudoephedrine HCl 30 mg tablet 30 mg PO Q6H PRN 10/30/21 02/26/23 rizatriptan 10 mg tablet See Rx Instructions PO .COMPLEX 10/30/21 02/26/23 triamcinolone acetonide 0.5 % 1 applic topical DAILY 10/30/21 02/26/23 topical cream pantoprazole 40 mg tablet,delayed 40 mg PO DAILY #90 tabs 10/14/22 02/26/23 release (Protonix) levothyroxine 150 mcg capsule 300 mcg PO DAILY 12/31/22 02/26/23 lorazepam 1 mg tablet (Ativan) 0.5 mg PO Q6H PRN PRN anxiety #5 01/05/23 02/26/23 tabs fluticasone propionate 44 44 mcg inhalation QAM 01/08/23 02/26/23 mcg/actuation HFA aerosol inhaler (Flovent HFA) gabapentin 600 mg tablet 600 mg PO TID 01/08/23 02/26/23 levothyroxine 150 mcg tablet 300 mcg PO DAILY@0600 01/08/23 02/26/23 nystatin 100,000 unit/gram topical 1 applic topical DAILY #60 grams 01/29/23 02/26/23 powder lorazepam 1 mg tablet 1 mg PO Q4H PRN anxiety #10 tabs 05/21/23 morphine concentrate 100 mg/5 mL See Rx Instructions PO Q4H PRN 05/21/23 (20 mg/mL) oral solution pain or dyspnea #30 mL methylphenidate HCl 20 mg tablet See Rx Instructions PO TID #28 tabs 07/14/23 hydromorphone 2 mg tablet 2 mg PO Q4H PRN pain #20 tabs 08/02/23 Previous Rx's Medication Instructions Recorded pantoprazole 40 mg tablet,delayed 40 mg PO DAILY #90 tabs 10/14/22 release (Protonix) lorazepam 1 mg tablet (Ativan) 0.5 mg PO Q6H PRN PRN anxiety #5 01/05/23 tabs nystatin 100,000 unit/gram topical 1 applic topical DAILY #60 grams 01/29/23 powder lorazepam 1 mg tablet 1 mg PO Q4H PRN anxiety #10 tabs 05/21/23 morphine concentrate 100 mg/5 mL See Rx Instructions PO Q4H PRN 05/21/23 (20 mg/mL) oral solution pain or dyspnea #30 mL methylphenidate HCl 20 mg tablet See Rx Instructions PO TID #28 tabs 07/14/23 hydromorphone 2 mg tablet 2 mg PO Q4H PRN pain #20 tabs 08/02/23 Allergies Allergy/AdvReac Type Severity Reaction Status Date / Time iodine Allergy Severe Anaphylaxis Verified 02/17/23 12:04 niacin Allergy Unknown Skin Rash Verified 02/17/23 12:04 codeine Allergy MULLINS Verified 02/17/23 12:04 Penicillins AdvReac Severe Dizziness/L Verified 02/17/23 12:04 ightheade cortisone AdvReac Intermediate Psychosis Verified 02/17/23 12:04 meperidine [From Demerol] AdvReac Intermediate Visual Verified 02/17/23 12:04 Disturbances Sulfa (Sulfonamide AdvReac Intermediate Nausea Verified 02/17/23 12:04 Antibiotics) General Stated Complaint: Fall/Non TraumaCriteria STEFFANY: 3 Review of Systems All systems reviewed & are unremarkable except as noted in HPI and below Constitutional Constitutional: Denies chills, Denies fever(s) and Denies weakness Cardiovascular Cardiovascular: Denies chest pain and Denies dyspnea Respiratory Respiratory: Denies cough and Denies dyspnea Gastrointestinal Gastrointestinal: Denies abdominal pain, Denies nausea and Denies vomiting Musculoskeletal Musculoskeletal: Denies joint swelling Neurologic Neurologic: Denies weakness PFSH All Active Problems (Updated 08/04/23 @ 14:38 by Martell Mohamud MD) Fall (Acute) Contusion of right elbow (Acute) Colon cancer (Chronic) stage 4 s/p subtotal colectomy w/ perm ileostomy. still has rectum PA (dyspnea on exertion) (Acute) Obesity (Chronic) Elevated cholesterol (Chronic) Medical History Anxiety Asthma Cecum mass Colon cancer high risk Colon cancer, ascending Depression Dissociative identity disorder Elevated CEA Epistaxis, recurrent GERD (gastroesophageal reflux disease) Hx of small bowel obstruction Hyperlipidemia Hypertension Hypothyroidism Knee arthropathy Migraine headache Primary osteoarthritis of left knee Steroid injection: 09/25/2021 Primary osteoarthritis of right knee Steroid injection: 09/25/2021 PTSD (post-traumatic stress disorder) Per pt. states no current triggers Stage III carcinoma of colon (~08/06/20) Thrombocythemia Surgical History History of arthroscopy of right knee History of cholecystectomy History of colonoscopy (~10/2021) History of tonsillectomy S/P right hemicolectomy S/P right rotator cuff repair Social History Smoking/Tobacco Use Status: Former Tobacco Use Quit Date: 11/15/65 Smoking risk assessment performed?: Yes Alcohol Intake: former Drug use: Occasionally Substance use type: marijuana Do you feel safe at home: Yes Do you feel safe in your relationship?: Yes Exam Const General: no acute distress Orientation: alert HENMT Head: normal to inspection Ears: external ears normal General nose exam: external nose normal Mouth: moist mucous membranes Eyes General: appearance normal, both eyes and all related structures Neck Neck: normal visual inspection Resp Effort & Inspection: normal respiratory effort and able to speak in complete sentences Cardio Rate: regular rate Skin General skin exam: no rashes or lesions noted Neuro General: patient alert and patient oriented x3 Extrem General: full ROM and capillary refill normal Psych Mental Status: mental status grossly normal Course Vital Signs Vital signs: Vital Signs Temperature 36.9 C 08/04/23 13:13 Pulse 78 08/04/23 13:13 Respiratory Rate 18 08/04/23 13:13 Blood Pressure 128/107 H 08/04/23 13:13 Pulse Oximetry 98 08/04/23 13:13 Temperature 36.9 C 08/04/23 13:13 Temperature Source Skin 08/04/23 13:13 Pulse 78 08/04/23 13:13 Respiratory Rate 18 08/04/23 13:13 Respiratory Effort Normal 08/04/23 13:18 Blood Pressure 128/107 H 08/04/23 13:13 Blood Pressure Position Sitting 08/04/23 13:13 Pulse Oximetry 98 08/04/23 13:13 Oxygen Delivery Method Room Air 08/04/23 13:13 Oxygen Flow Rate 0 08/04/23 13:13
[2023-08-04] MEDS: HYDROmorphone 2 MG/ML SYR 1 MG IM (14:02)
== END 2023-08-04 15:15 | disposition home or self-care (01) ==
PROVIDERS: Emergency Provider Emergency Medicine; PCP Neuromusculoskeletal Medicine & OMM
DX: S09.90XA Unspecified injury of head, initial encounter (principal); S50.02XA Contusion of left elbow, initial encounter; C18.9 Malignant neoplasm of colon, unspecified; Z93.2 Ileostomy status; W01.0XXA Fall on same level from slipping, tripping and stumbling without subsequent striking against object, initial encounter; Y93.01 Activity, walking, marching and hiking; Y92.018 Other place in single-family (private) house as the place of occurrence of the external cause; Y99.9 Unspecified external cause status
CPT/HCPCS: 80053; 82550; 96372; 99283; 73080; 83735; 84443; 84484; 85025; J1170